=== PATIENT | male | born 1960 | race Caucasian/White ===

== ENCOUNTER → 2016-04-29 | Outpatient (CLI) | payer OTHER ==
[2016-04-29 13:16] LABS: Basophils # (A) 0.1 k/uL (0-0.2); Basophils % (A) 1 %; CH 29.2; CHCM 33.5; Eosinophils # (A) 0.4 k/uL (0-0.7); Eosinophils % (A) 4 %; HCT 47.3 % (39.0-53.0); HDW 2.48; Luc # (Auto) 0.29; Luc % (Auto) 3; Lymphocytes # (A) 2.3 k/uL (1.0-4.8); Lymphocytes % (A) 25 %; MCH 29.5 pg (25.0-35.0); MCHC 33.8 g/dL (31.0-37.0); MCV 87.2 fL (80.0-100.0); Mean Platelet Volume 6.4; Monocytes # (A) 0.7 k/uL (0-1.0); Monocytes % (A) 8 %; Neutrophils # (A) 5.6 k/uL (1.3-7.7); Neutrophils % (A) 60 %; RBC 5.42 m/uL (4.30-5.90); RDW 12.6 % (11.5-15.5); WBC 9.4 k/uL (3.8-10.6); WBC (Perox) 9.86
[2016-04-29 13:29] LABS: Anion Gap 14 mmol/L; Blood Urea Nitrogen 16 mg/dL (9-20); Calcium 9.5 mg/dL (8.4-10.2); Carbon Dioxide 26 mmol/L (22-30); Chloride 103 mmol/L (98-107); Glucose 131 mg/dL (74-99); Non-African American GFR(MDRD) >60 (>60 ml/min/1.73 sqM); Potassium 4.9 mmol/L (3.5-5.1); Sodium 143 mmol/L (137-145)
== END | disposition home or self-care (01) ==
LOC: LABPAT 12:45
PROVIDERS: ATTEND Urology
DX: Z01.810 Encounter for preprocedural cardiovascular examination (principal); I10 Essential (primary) hypertension; N20.1 Calculus of ureter; E78.5 Hyperlipidemia, unspecified
CPT/HCPCS: 80048; 85025

== ENCOUNTER 2016-05-01 09:24 | Day surgery (SDC) | payer OTHER ==
[2016-04-29 12:01] VITALS: BMI 30.1
--- NOTE | 2016-05-01 09:16 | XR ---
EXAMINATION TYPE: XR KUB DATE OF EXAM: 05/01/2016 9:10 AM HISTORY: Pain Comparison: 03/19/2016 Single KUB is submitted for interpretation. Findings: Right renal calculi: None Visualized. Right ureteral calculi: Multiple pelvic phleboliths. Difficult to exclude distal ureteral calculus. Left renal calculi: None Visualized. Left ureteral calculi: Multiple pelvic phleboliths. Difficult to exclude distal ureteral calculus. Pelvic calcifications: Multiple pelvic phleboliths. Difficult to exclude distal ureteral calculus. Bowel gas pattern is unremarkable. No free air. No mass effects. IMPRESSION: 1. Multiple pelvic phleboliths. Difficult to exclude distal ureteral calculus.
[~2016-05-01 09:24] MED LIST: ceFAZolin 2 GM in SODIUM CHLORIDE 0.9% 100 ML IVPB ONE
[2016-05-01] MEDS: LACTATED RINGERS 1,000 ML IV ONE ×2 (10:10→10:23)
[2016-05-01] MEDS ORDERED: LIDOCAINE 1% 20 ML VIAL (10MG/ML) FOR IV START SQ ONE (10:11)
[2016-05-01] MEDS ORDERED: ONDANSETRON 4 MG/2 ML VIAL IM STA (10:17)
[2016-05-01] MEDS ORDERED: DEXAMETHASONE SOD PHOSPHATE 4 MG/ML 1 ML VIAL IV STA (10:17)
[2016-05-01] MEDS ORDERED: DEXAMETHASONE SOD PHOSPHATE 10 MG/ML 1 ML VIAL IV STA (10:19)
[2016-05-01] MEDS ORDERED: IOHEXOL 350 MG/ML 50ML BOTTLE MISCELLANE ONE ×2 (10:26)
[2016-05-01] MEDS ORDERED: IOHEXOL 350 MG/ML 50ML BOTTLE ONE (10:26)
[2016-05-01] MEDS ORDERED: MIDAZOLAM 2 MG/2 ML VIAL ONE (10:30)
[2016-05-01] MEDS ORDERED: LIDOCAINE 1% INJ 10MG/ML (20 ML MDV) ONE (10:30)
[2016-05-01] MEDS ORDERED: METOPROLOL TARTRATE 5 MG/5 ML VIAL IVP ONE (10:30)
[2016-05-01] MEDS ORDERED: SODIUM CHLORIDE 0.9% 100 ML BAG ONE (10:30)
[2016-05-01] MEDS ORDERED: PROPOFOL 10 MG/ML 20 ML VIAL IV ONE (10:30)
[2016-05-01] MEDS ORDERED: fentaNYL (PF) 50 MCG/ML 2 ML AMP ONE (10:30)
[2016-05-01] MEDS ORDERED: SUCCINYLCHOLINE CHLORIDE 100 MG/5 ML SYR IV ONE (10:30)
[2016-05-01] MEDS ORDERED: LACTATED RINGERS 1,000 ML BAG IV ONE (10:30)
[2016-05-01] MEDS ORDERED: ceFAZolin 1,000 MG VIAL ONE (10:30)
[2016-05-01] MEDS ORDERED: PHENYLEPHRINE-0.9% NACL SYG 1 MG/10 ML SYRINGE ONE (10:30)
[2016-05-01] MEDS ORDERED: LACTATED RINGERS 1,000 ML IV ONE (11:31)
--- NOTE | 2016-05-01 11:42 | P.OP ---
Date of Procedure: 05/01/16 Preoperative Diagnosis: Right Ureteral Calculus Postoperative Diagnosis: Same Procedure(s) Performed: Cystoscopy, right retrograde pyelogram, right ureteroscopy with Holmium laser lithotripsy and stone basketing, right ureteral stent insertion Anesthesia: JOSÉ LUIS Surgeon: Karson Kaufman Estimated Blood Loss (ml): 5 IV fluids (ml): 950 Pathology: other (Calculus fragments, sent for chemical analysis) Condition: stable Disposition: PACU Indications for Procedure: He is a 55-year-old male with no prior history of urolithiasis. He now presents with right renal colic due to a 4 mm right proximal ureteral calculus. He has not had any episodes of severe pain since his initial episode of renal colic on February 14, but he reports intermittent gross hematuria and RLQ discomfort. The calculus is not seen on a KUB x-ray. He has taken tamsulosin and strained his urine, with the calculus has failed to pass. In view of this, he will undergo ureteroscopic removal of the calculus. He did sustain a recent TIA, but it is felt that the surgery can be safely performed and that the benefits of surgery outweigh the risks. Operative Findings: Right distal ureteral calculus. Description of Procedure: The patient was taken to the operating room and placed in the dorsolithotomy position, with legs supported in Stan stirrups. The external genitalia was prepped and draped sterilely. The 30 lens was used to introduce the 19-Colombian Stortz cystoscopic sheath through the urethra and into the bladder under direct vision. The prostatic urethra showed evidence of moderate trilobar enlargement. The bladder was examined in its entirety. The right ureteral orifice was of normal anatomic location and configuration, and clear urine effluxed from it. The left ureteral orifice was obscured by the median lobe. No tumors or foreign bodies were seen. Using an 8-Colombian cone-tipped catheter, a right retrograde pyelogram was performed in the standard fashion. The distal ureter appeared to be normal in caliber, but there was a transition point proximal to which the ureter appeared to be dilated. This was suggestive of the presence of the calculus. A 0.038 inch Glidewire was passed through the cystoscope. The right ureteral orifice was cannulated, and the Glidewire was advanced. The Glidewire met resistance, indicative of an obstructing stone in the area where the retrograde pyelogram had been abnormal. This was located within the distal ureter. The Glidewire passed beyond this point and up to the right renal pelvis. A 15-Colombian balloon dilating catheter was then passed over the wire, and this was used to dilate the intramural portion of the ureter, as the ureteral orifice was small in caliber. After dilating the ureteral orifice, the cystoscope was removed along with the balloon dilating catheter. The ACMI semirigid ureteroscope was advanced into the bladder, and the right ureteral orifice was cannulated. The ureteroscope was advanced up to the level of the calculus, which measured approximately 4 mm in size. The 365 micron Holmium laser probe was passed through the ureteroscope, and lithotripsy was performed. Care was taken to avoid any injury to the ureteral wall. Once the calculus was adequately fragmented, a 1.9-Colombian nitinol basket was used to remove several of the larger fragments. These fragments measured only 1-2 mm in size, and the remaining fragments were too small to basket. The Glidewire was advanced up to the right renal pelvis, and the ureteroscope was removed. The Glidewire was backloaded into the cystoscope, which was passed into the bladder. A 26 cm, 4.8 -Colombian double-J ureteral stent was placed over the wire. Proper stent positioning was verified fluoroscopically and endoscopically. The bladder was emptied and the cystoscope removed. Several calculus fragments which were removed were sent for chemical analysis. The patient tolerated the procedure well and was taken to the recovery room in stable condition.
[2016-05-01 11:51] VITALS: TEMP 98.4
[2016-05-01 11:54] VITALS: RESP 18
--- NOTE | 2016-05-01 12:23 | FL ---
EXAMINATION TYPE: FL urography retrograde DATE OF EXAM: 05/01/2016 11:33 AM COMPARISON: NONE HISTORY: RT URETERAL CALCULUS, STENT PLACED TECHNIQUE: Fluoroscopy. FINDINGS: 90 SEC FL, 1 FILM SCANNED IMPRESSION: As Above.
[2016-05-01 13:04] VITALS: BP 130/80; PULSE 81
[2016-05-01] MEDS ORDERED: HYDROcodone/APAP 5-325MG 1 EACH TAB PO ONE (13:05)
== END 2016-05-01 13:42 | disposition home or self-care (01) ==
LOC: OR 09:24
PROVIDERS: ATTEND Urology
DX: N20.1 Calculus of ureter (principal); I25.10 Atherosclerotic heart disease of native coronary artery without angina pectoris; I10 Essential (primary) hypertension; F17.200 Nicotine dependence, unspecified, uncomplicated; E78.5 Hyperlipidemia, unspecified; I48.91 Unspecified atrial fibrillation; Z79.01 Long term (current) use of anticoagulants; Z95.5 Presence of coronary angioplasty implant and graft; N40.0 Benign prostatic hyperplasia without lower urinary tract symptoms; E66.9 Obesity, unspecified; Z68.30 Body mass index [BMI] 30.0-30.9, adult; J44.9 Chronic obstructive pulmonary disease, unspecified; G47.30 Sleep apnea, unspecified; Z79.82 Long term (current) use of aspirin; Z79.899 Other long term (current) drug therapy
CPT/HCPCS: 52356; 52352; 82365; 74000; 74420; C2625; C1758; C1769 ×2; J2250; J1100; J2405; J0690; J2001; J3010; J2370; J0330; J2704; Q9967

== ENCOUNTER → 2016-06-03 | Outpatient (CLI) | payer OTHER ==
--- NOTE | 2016-06-03 14:00 | US ---
EXAMINATION TYPE: US kidneys/renal and bladder DATE OF EXAM: 06/03/2016 10:52 AM COMPARISON: See PACS CLINICAL HISTORY: N13.30 Hydronephrosis. EXAM MEASUREMENTS: Right Kidney: 12.1 x 4.8 x 4.8 cm Left Kidney: 12.6 x 5.6 x 4.8 cm TECHNOLOGIST IMPRESSION: Right Kidney: No hydronephrosis or masses seen Left Kidney: No hydronephrosis or masses seen Bladder: wnl There is no evidence for hydronephrosis at this point in time. No masses are identified. The urin corrie bladder is anechoic. Bilateral ureteral jets are not clearly identified. IMPRESSION: No hydronephrosis is present bilaterally.
== END | disposition home or self-care (01) ==
LOC: RADUSWWP 10:30
PROVIDERS: ATTEND Urology
DX: N13.30 Unspecified hydronephrosis (principal)
CPT/HCPCS: 76770

== ENCOUNTER → 2016-09-09 | Outpatient (CLI) | payer OTHER ==
--- NOTE | 2016-09-09 23:12 | PN ---
This 55-year-old male patient diagnosed with an established diagnosis of obstructive sleep apnea. The patient was found to have severe RAJESH based on a home sleep study that showed severe RAJESH with an AHI of 74, 46 and 66 respectively. Based on that, the patient was given an auto CPAP unit and he has been using it for quite some time. He came to my office for a follow-up and he was having difficulty in wearing the CPAP machine. Initially was compliant. However, with time he felt that the mask itself was becoming uncomfortable and the patient was having excessive amount of leaks around his nasal bridge. He was waking up non-refreshed and he ended up quitting the treatment. For that reason he came in for further advice. I asked the patient is coming to the sleep center for mask fit so he will have a few alternative masks on his fullface mask. He is currently using an AirFit P10 fullface mask. Note that the patient also has history of atrial fibrillation. He has COPD, coronary artery disease, hypertension, hyperlipidemia, anxiety disorder and a left lower lobe pulmonary nodule that was noted, and being followed up by his primary care physician. Drug allergies are not known. SOCIAL HISTORY: The patient is a former smoker. No history of alcohol. No history of IV drugs. Outpatient medication list includes: 1. Xanax 0.25 mg on a p.r.n. basis. 2. Norvasc 10 mg p.o. daily. 3. Plavix 75 mg p.o. daily. 4. Ventolin HFA on a p.r.n. basis. 5. Imdur 60 daily. 6. Eliquis 5 mg p.o. daily. 7. Lipitor 20 mg p.o. daily. 8. Aspirin 81 mg p.o. daily. 9. ( ) on an as needed basis. REVIEW OF SYSTEMS: Twelve-point review of systems was done. Positive findings were all mentioned above in present illness. His current vital signs: BP is 109/67, pulse 64, respirations 14, temperature 97.3. Weight is 215, and height is 69 inches. An [place] score is 12. Neck size is 17-1/2 inches. GENERAL APPEARANCE: Calm and comfortable. HEENT: Short neck. Crowding of posterior pharynx. There is no goiter, neck masses. LUNGS: Diminished breath sounds bilaterally; otherwise clear. HEART: Sounds are regular rate and rhythm. Normal S1, S2. No S3, no S4. No murmurs. ABDOMEN: Soft, nontender. No organomegaly. EXTREMITIES: No cyanosis, or clubbing. IMPRESSION: Symptomatic obstructive sleep apnea. The patient had severe disease with previous home sleep study showed an hypopnea index of at least 45 and highest 74. The patient was given an auto CPAP unit is having difficulties utilizing the CPAP machine. PLAN: I reviewed the patient's compliancy data. The patient needs to have a different mask interface to improve his compliancy in general. The main issue remains leak around his nasal ( ). Based on that, I suggested updating this patient's mask interface to Simplus fullface mask. We will also try different mask interfaces until treatment becomes more successful. Simplus mask was fitted today and I think this should be successful. The patient will see me back in follow-up for a compliancy check in 3 to 6 months' time.
== END | disposition home or self-care (01) ==
LOC: SLEEP 15:06
PROVIDERS: ATTEND Internal Medicine Critical Care Medicine
DX: G47.33 Obstructive sleep apnea (adult) (pediatric) (principal); J44.9 Chronic obstructive pulmonary disease, unspecified; I25.10 Atherosclerotic heart disease of native coronary artery without angina pectoris; I10 Essential (primary) hypertension; E78.5 Hyperlipidemia, unspecified; F41.9 Anxiety disorder, unspecified; Z86.79 Personal history of other diseases of the circulatory system; Z87.891 Personal history of nicotine dependence; Z79.899 Other long term (current) drug therapy; Z79.01 Long term (current) use of anticoagulants; Z79.02 Long term (current) use of antithrombotics/antiplatelets
CPT/HCPCS: 99211

== ENCOUNTER 2017-07-30 15:04 | Inpatient (IN) | payer BC, OTHER ==
[2017-07-30] MEDS ORDERED: ALBUTEROL NEBULIZED 2.5 MG/3 ML INHALATION PRN (18:54)
[2017-07-30] MEDS ORDERED: ALPRAZolam 0.25 MG TAB PO PRN (18:54)
[2017-07-30] MEDS ORDERED: NITROGLYCERIN SL TABS 0.4 MG TAB SUBLINGUAL PRN (18:54)
[2017-07-30] MEDS: DILTIAZEM 50 MG in SODIUM CHLORIDE 0.9% 40 ML IV SCH (19:30)
[2017-07-30] MEDS: ALBUTEROL NEBULIZED 2.5 MG/3 ML INHALATION SCH (20:04)
[2017-07-30 20:27] LABS: Glucose,Whole Blood 335 mg/dL (75-99)
[2017-07-30] MEDS: METOPROLOL TARTRATE 50 MG TAB PO SCH (21:06)
[2017-07-30] MEDS: INSULIN ASPART 100 UNIT/ML 1 ML 10 ML VIAL SQ SCH (22:10)
[2017-07-30] MEDS: INSULIN DETEMIR 100 UNIT/ML 10 ML VIAL SQ SCH (22:10)
[2017-07-31 00:32] LABS: Calcium 10.2 mg/dL (8.4-10.2); Magnesium 2.1 mg/dL (1.6-2.3); Potassium 4.3 mmol/L (3.5-5.1)
[2017-07-31 00:42] LABS: Glucose,Whole Blood 243 mg/dL (75-99)
[2017-07-31 06:19] LABS: Glucose,Whole Blood 127 mg/dL (75-99)
[2017-07-31] MEDS: INSULIN ASPART 100 UNIT/ML 1 ML 10 ML VIAL SQ SCH ×4 (06:20→21:12)
[2017-07-31] MEDS ORDERED: metFORMIN 500 MG TAB PO SCH (07:30)
[2017-07-31] MEDS: ALBUTEROL NEBULIZED 2.5 MG/3 ML INHALATION SCH ×5 (07:43→20:19)
[2017-07-31] MEDS: ASPIRIN 81 MG PO SCH (08:32)
[2017-07-31] MEDS: amLODIPine 10 MG TAB PO SCH (08:32)
[2017-07-31] MEDS: METOPROLOL TARTRATE 50 MG TAB PO SCH ×2 (08:32→21:12)
[2017-07-31] MEDS: ATORVASTATIN 40 MG TAB PO SCH (08:32)
[2017-07-31] MEDS: ISOSORBIDE MONONITRATE ER 30 MG TAB.ER.24H PO SCH (08:32)
[2017-07-31] MEDS: MONTELUKAST 10 MG TAB PO SCH (08:33)
[2017-07-31] MEDS: TAMSULOSIN 0.4 MG CAP.ER.24H PO SCH (08:33)
[2017-07-31] MEDS ORDERED: ATORVASTATIN 40 MG TAB PO STA (09:27)
[2017-07-31] MEDS ORDERED: NITROGLYCERIN SL TABS 0.4 MG TAB SUBLINGUAL PRN (09:27)
[2017-07-31] MEDS ORDERED: ALPRAZolam 0.5 MG TAB PO PRN (09:27)
[2017-07-31] MEDS ORDERED: SODIUM CHLORIDE 0.9% 1,000 ML in EMPTY BAG 1 BAG IV ONE (09:27)
[2017-07-31] MEDS ORDERED: ALPRAZolam 0.25 MG TAB PO PRN (09:27)
[2017-07-31] MEDS ORDERED: ASPIRIN 81 MG PO STA (09:37)
[2017-07-31] MEDS ORDERED: IV FLUID CONTINUATION 1,000 ML IV ONE (10:15)
[2017-07-31] MEDS ORDERED: VERAPAMIL 2.5 MG/ML 2 ML AMP ONE (10:33)
[2017-07-31] MEDS ORDERED: MIDAZOLAM 2 MG/2 ML VIAL ONE (10:39)
[2017-07-31] MEDS ORDERED: fentaNYL (PF) 50 MCG/ML 2 ML AMP ONE (10:39)
[2017-07-31] MEDS ORDERED: fentaNYL (PF) 50 MCG/ML 2 ML AMP IV ONE (10:41)
[2017-07-31] MEDS ORDERED: MIDAZOLAM 2 MG/2 ML VIAL IV ONE (10:43)
[2017-07-31] MEDS ORDERED: LIDOCAINE 2% INJ 20 MG/ML SQ ONE (10:44)
[2017-07-31] MEDS ORDERED: VERAPAMIL SYRINGE (5 MG/10 ML) INTRAARTER ONE (10:47)
[2017-07-31] MEDS ORDERED: IODIXANOL 320 MG/ML 100 ML IV ONE (11:09)
[2017-07-31] MEDS ORDERED: IOPAMIDOL-370 125ML BTL INJ ONE (11:10)
--- NOTE | 2017-07-31 11:13 | P.PCN ---
Date of Procedure: 07/31/17 Preoperative Diagnosis: Ischemic heart disease, recurrent chest pains suggestive of unstable angina and also sick sinus syndrome Postoperative Diagnosis: Patent stents both the LAD and circumflex Implants: Left heart catheterization without left ventriculography Description of Procedure: HISTORY: This is a 56-year-old gentleman with history of ischemic or disease with previous stent placement of the left anterior descending and also circumflex coronary artery. Patient also has a history of paroxysmal/ persistent atrial fibrillation. He was admitted to [facility] with prolonged chest pain but with negative enzymes. Patient had syncopal episode while in the emergency room with a long pauses of more than 5 seconds. Patient was in atrial fibrillation at the time. Patient also gives history that he had similar episode a few months ago while he was in the garage but did not seek any medical advice. Patient is advised to have a cardiac catheterization to rule out any progression of ischemic heart disease and assess the patency of the stents. If coronary artery disease is stable, patient will have permanent pacemaker implantation CONSENT:I have discussed the risks, benefits and alternative therapies for the above-mentioned procedure and for both sedation/analgesia as well as necessary blood product administration, if indicated, as they pertain to this patient. The patient has indicated understanding and acceptance of the risks and procedures discussed. PROCEDURE: Patient was brought to the lab in a fasting state. Patient was given some IV sedation. The right wrist is infiltrated with lidocaine and right radial artery was entered using Seldinger technique. A 6-Mauritanian catheter was left in place and selective coronary arteriography was performed. Attempts were made to enter the left ventricle with pigtail catheter but was unsuccessful. Patient tolerated the procedure well. TR band was applied for hemostasis No immediate complications were noted and patient is being prepped for permanent pacemaker implantation Conscious Sedation: Versed 1mg Fentanyl 50 g Duration 22 minutes HEMODYNAMICS:. The aortic pressure is about 100/70. Left ankle end-diastolic pressure was not measured SELECTIVE CORONARY ARTERIOGRAPHY: LEFT MAIN: Normal length and free of any occlusive disease THE LEFT ANTERIOR DESCENDING CORONARY ARTERY:. This is a huge caliber vessel with patent stent in the proximal portion. It gives rise to 2 diagonal and septal branches. Mild disease noted in the distal LAD and also ostium of the second diagonal. THE LEFT CIRCUMFLEX AND IS CORONARY ARTERY: This is a moderate caliber vessel with a patent stent in the proximal portion. Mild plaque noted in the distal portion THE RIGHT CORONARY ARTERY:. This is a dominant vessel giving rise to good-sized PDA and PLV. Free of any significant occlusive disease LEFT VENTRICULOGRAPHY:. Not performed FINAL IMPRESSION:. Stable coronary artery disease with patent stents in the LAD and the circumflex and is coronary artery PLAN: Continuation maximum medical therapy. We'll proceed with permanent pacemaker implantation for sick sinus syndrome PROGNOSIS: Fair
[2017-07-31] MEDS ORDERED: ceFAZolin 1,000 MG in SODIUM CHLORIDE 0.9% IRRIGATIO 250 ML IRRIGATION ONE (11:15)
[2017-07-31] MEDS ORDERED: ceFAZolin IN SWFI 2 GM/20 ML SYRINGE IVP STA (11:15)
[2017-07-31] MEDS: LIDOCAINE 1% INJ 10MG/ML (10 ML MDV) SQ ONE ×2 (11:40→11:53)
[2017-07-31] MEDS ORDERED: LIDOCAINE 1% INJ 10MG/ML (20 ML MDV) SQ ONE ×3 (11:40→12:02)
[2017-07-31] MEDS ORDERED: ACETAMINOPHEN TAB 325 MG TAB PO PRN (12:35)
[2017-07-31] MEDS ORDERED: SODIUM CHLORIDE 0.9% 1,000 ML IV ONE (12:40)
--- NOTE | 2017-07-31 14:01 | P.HPIM ---
History of Present Illness H&P Date: 07/31/17 Chief Complaint: tachybrady syndrome. This is a 56-year-old male one of Dr. Bushra quinteros with a previous medical history significant for CAD post-PCI of the LAD back in 12/27/2015 followed by PCI of the left circumflex in January [address] 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, history of obesity with obstructive sleep apnea on CPAP, chronic tobacco use and dependence with COPD, diabetes mellitus type 2, patient was at [place] the day before yesterday when he felt that his heart is being erratic he ended up going to atrial fibrillation with possible RVR that time patient felt quite dizzy that time diaphoretic he ended up the coming to the ER at [facility] where he was found to have a positive disease in the ER at about 6 seconds and the patient passed out completely and the patient was admitted to the hospital he was seen in consultation by cardiology and the patient was given a decision to go for left heart catheterization at [facility] and apparent pacemaker placement due to the tachybradycardia syndrome and the patient was transferred from [facility] into [facility] where he was seen in consultation by cardiology ended up going for a permanent pacemaker placement after heart catheterization that failed to show any obstructive heart disease. Review of Systems Constitutional: Reports weight gain, Denies anorexia, Denies chronic headaches, Denies lethargy, Denies weakness Eyes: denies blurred vision, denies bulging eye, denies decreased vision Ears, nose, mouth and throat: Denies dysphagia, Denies neck lump, Denies swelling in throat, Denies sore throat Cardiovascular: Reports decreased exercise tolerance, Reports dyspnea on exertion, Reports high blood pressure, Reports irregular heart beat, Reports palpitations, Reports rapid heart beat, Reports shortness of breath, Denies chest pain, Denies syncope Respiratory: Reports congestion, Reports cough with sputum, Reports dyspnea, Reports sleep apnea, Reports snoring, Denies cough, Denies home oxygen, Denies wheezing Gastrointestinal: Denies abdominal pain, Denies belching, Denies bloating, Denies heartburn, Denies melena, Denies nausea, Denies vomiting Genitourinary: Denies dysuria, Denies nocturia, Denies polyuria Musculoskeletal: Denies myalgias Musculoskeletal: absent: ankle pain, ankle stiffness, ankle swelling, elbow pain , elbow stiffness, elbow swelling, foot pain, foot stiffness, foot swelling, hand pain, hand stiffness, hand swelling, hip pain, hip stiffness, hip swelling , knee pain, knee stiffness, knee swelling, shoulder pain, shoulder stiffness, shoulder swelling, wrist pain, wrist stiffness, wrist swelling Integumentary: Denies pruritus, Denies rash Neurological: Reports weakness (mild left-sided weakness.), Denies numbness Psychiatric: Denies anxiety, Denies depression Endocrine: Reports high blood sugars Past Medical History Past Medical History: Atrial Fibrillation, Coronary Artery Disease (CAD), Chest Pain / Angina, COPD, CVA/TIA, Diabetes Mellitus, Hyperlipidemia, Hypertension, Liver Disease, Myocardial Infarction (CO), Osteoarthritis (OA), Pneumonia, Prostate Disorder, Sleep Apnea/CPAP/BIPAP, Syncope Additional Past Medical History / Comment(s): MILD CVA 03/27/16, WEAKNESS LT LEG AND ARM and when tired lt foot drag at times. "SPOT ON LIVER, BEING WATCHED." CALCULUS OF RT URETER (lithotripsy and stenting). USES CPAP. History of Any Multi-Drug Resistant Organisms: None Reported Past Surgical History: Heart Catheterization, Heart Catheterization With Stent, Orthopedic Surgery Additional Past Surgical History / Comment(s): 08/29/13 Cath with 50-60% stenosis L cx treated medically, possible PTCA about 10 yrs ago per pt old medical records. EXC Bilateral Feet BUNIONS. ORIF Right Wrist Surgery - TOOK BONE FROM RT HIP. Colonoscopy-normal. PTCA W/ 1 STENT X2 IN 12/2015. Past Anesthesia/Blood Transfusion Reactions: No Reported Reaction Date of Last Stent Placement:: 01/03/16 Smoking Status: Current every day smoker (patient smokes pack every day since was 20-year-old and is currently smokes about 4 cigarettes a daily basis, he denies any alcohol ingestion or drug abuse.) Past Alcohol Use History: None Reported Past Drug Use History: None Reported - Past Family History Mother Family Medical History: Cancer, Diabetes Mellitus Additional Family Medical History / Comment(s): Mother is alive and 78 yrs old. She has NIDDM and had breast cancer. Father Brother(s) Family Medical History: COPD, Coronary Artery Disease (CAD), CVA/TIA Additional Family Medical History / Comment(s): Father at 69yrs old of copd. Brother(s) Family Medical History: Renal Disease (patient has 3 brothers one of his brother was diagnosed with kidney disease and the other one with CAD and the third one with COPD) Sister(s) Family Medical History: AFIB (patient has 4 sisters one of them with atrial flutter ablation.) Daughter(s) Family Medical History: No Reported History (patient has 2 daughters no major medical problems) Son(s) Family Medical History: No Reported History (patient has one son no major medical problems.) Medications and Allergies Home Medications Medication Instructions Recorded Confirmed Type Nitroglycerin Sl Tabs [Nitrostat] 0.4 mg SUBLINGUAL Q5M PRN 08/28/13 07/30/17 History Aspirin 81 mg PO DAILY 05/16/15 07/30/17 History Montelukast [Singulair] 10 mg PO DAILY 05/16/15 07/30/17 History amLODIPine [Norvasc] 10 mg PO DAILY 05/16/15 07/30/17 History ALPRAZolam [Xanax] 0.25 mg PO DAILY PRN 04/29/16 07/30/17 History Albuterol Inhaler [Ventolin Hfa 1 - 2 puff INHALATION RT-QID PRN 04/29/16 History Inhaler] Albuterol Nebulized [Ventolin 2.5 mg INHALATION RT-QID 04/29/16 07/30/17 History Nebulized] Tamsulosin [Flomax] 0.4 mg PO DAILY 04/29/16 07/30/17 History Atorvastatin [Lipitor] 40 mg PO DAILY 07/30/17 07/30/17 History Clopidogrel [Plavix] 75 mg PO DAILY 07/30/17 07/30/17 History Diltiazem Oral [Cardizem Oral] 30 mg PO TID 07/30/17 07/30/17 History Isosorbide Mononitrate ER [Imdur] 30 mg PO DAILY 07/30/17 07/30/17 History Metoprolol Tartrate [Lopressor] 100 mg PO DAILY 07/30/17 07/30/17 History Rivaroxaban [Xarelto] 20 mg PO DAILY 07/30/17 07/30/17 History Allergies Allergy/AdvReac Type Severity Reaction Status Date / Time No Known Allergies Allergy Verified 07/30/17 19:07 Physical Exam Vitals: Vital Signs Temp Pulse Pulse Pulse Resp BP Pulse Ox 07/31/17 09:29 97.0 F L 62 16 111/66 93 L 07/31/17 08:25 97.0 F L 62 18 111/66 93 L 07/31/17 07:54 72 07/31/17 07:43 72 07/31/17 03:29 70 18 07/31/17 03:28 97.0 F L 70 18 107/69 95 07/31/17 00:00 96.8 F L 70 18 94/50 93 L 07/30/17 20:16 92 07/30/17 20:06 94 95 07/30/17 20:00 96.4 F L 91 18 108/57 93 L 07/30/17 18:10 96.9 F L 104 H 16 99/55 Intake and Output 07/30/17 07/31/17 07/31/17 22:59 06:59 14:59 Intake Total 40 275 Output Total 275 500 Balance -235 -225 Intake: IV 40 275 Diltiazem 50 mg In Sodium 40 Chloride 0.9% 40 ml @ 5 MG/HR 5 mls/hr IV .Q10H [facility] Rx#:[id number] Output: Urine 275 500 Other: Voiding Method Urinal Urinal Weight 101 kg 100.5 kg - Constitutional General appearance: average body habitus, no acute distress - EENT Eyes: anicteric sclerae, EOMI, PERRLA, no ptosis, no scleral icterus, normal appearance ENT: hearing grossly normal, NA/AT, normal oropharynx, no thrush Ears: bilateral: normal - Neck Neck: no lymphadenopathy, normal ROM, no rigidity, no stridor, no thyromegaly Carotids: bilateral: upstroke normal Thyroid: bilateral: normal size - Respiratory Respiratory: bilateral: diminished, prolonged expiration, negative: dullness, rales, rhonchi, wheezing - Cardiovascular Rhythm: irregularly irregular Heart sounds: normal: S1, S2 Abnormal Heart Sounds: systolic murmur - Gastrointestinal General gastrointestinal: normal bowel sounds, soft, no splenomegaly, no tenderness, no umbilical hernia, no ventral hernia - Integumentary Integumentary: normal, normal turgor - Neurologic Neurologic: CNII-XII intact - Musculoskeletal Musculoskeletal: strength equal bilaterally - Psychiatric Psychiatric: A&O x's 3, appropriate affect, intact judgment & insight Results CBC & Chem 7: 07/31/17 00:02 Labs: Abnormal Lab Results - Last 24 Hours (Table) 07/30/17 07/31/17 07/31/17 Range/Units 20:25 00:02 00:41 Chloride 108 H (98-107) mmol/L Carbon Dioxide 21 L (22-30) mmol/L BUN 30 H (9-20) mg/dL Glucose 264 H (74-99) mg/dL POC Glucose (mg/dL) 335 H 243 H (75-99) mg/dL 07/31/17 Range/Units 06:17 Chloride (98-107) mmol/L Carbon Dioxide (22-30) mmol/L BUN (9-20) mg/dL Glucose (74-99) mg/dL POC Glucose (mg/dL) 127 H (75-99) mg/dL Thrombosis Risk Factor Assmnt - DVT/VTE Prophylaxis DVT/VTE Prophylaxis: Pharmacologic Prophylaxis ordered, Mechanical Prophylaxis ordered - Choose All That Apply Any of the Below Risk Factors Present?: Yes Each Factor Represents 1 point: Abnormal pulmonary function (COPD), Age 41-60 years, Obesity (BMI >25) Other Risk Factors: No Other congenital or acquired thrombophilia - If yes, enter type in comment: No Thrombosis Risk Factor Assessment Total Risk Factor Score: 3 Thrombosis Risk Factor Assessment Level: Moderate Risk Assessment and Plan Assessment: Assessment and plan: 1. Sick sinus syndrome or tachybradycardia syndrome. Patient was admitted to the hospital, left heart cath physician was done did not show any evidence of acute abnormalities, he continues to have patent stent in the LCx and LAD, he underwent permanent pacer placement that was done successfully, he would be kept in the hospital for another 24 hours, he'll be discharged home tomorrow morning. 2. Hypertension and hypertensive cardiovascular disease. Continue metoprolol 100 mg orally twice every day, continue lisinopril , amlodipine 10 mg orally once every day. 3. Hyperlipidemia. Continue patient on Lipitor 40 mg orally once every day. 4. Enlarged prostate. Continue Flomax 0.4 mg orally once every day. 5. A. fib status post permanent pacemaker placement. Continue Cardizem drip for now, continue metoprolol 100 mg orally twice every day, restart the patient back on Xarelto at 20 mg orally once every day. 6. History of kidney stones. Stable at this time. 7. Obstructive sleep apnea. Continue CPAP. 8. Recurrent TIA/CVA. Resume Xarelto 20 mg orally once every day, and aspirin 81 mg orally once every day. 9. CAD post-PCI of the LCx and LAD. Status post left heart catheterization that did not show any evidence of acute abnormalities. Continue patient on Imdur 30 mg orally once every day, metoprolol 100 mg orally twice every day, Lipitor 40 mg orally once every day, and aspirin 81 mg once every day. 10. Chronic tobacco use and dependence with COPD. Continue DuoNeb as needed. Smoking cessation and counseling. 11. Diabetes mellitus type 2. Start the patient on Levemir 22 units of bedtime along with a sliding scale insulin. Hold off metformin for now. 12. Admitted to inpatient. Estimate a length of stay 2 midnights. 13. Patient is full code.
[2017-07-31] MEDS: DILTIAZEM 50 MG in SODIUM CHLORIDE 0.9% 40 ML IV SCH ×3 (15:20→23:23)
[2017-07-31] MEDS: HYDROcodone/APAP 5-325MG 1 EACH TAB PO PRN ×2 (16:46→21:13)
[2017-07-31 17:17] LABS: Glucose,Whole Blood 154 mg/dL (75-99)
[2017-07-31] MEDS: ceFAZolin IN SWFI 2 GM/20 ML SYRINGE IVP SCH ×2 (17:49→23:23)
[2017-07-31] MEDS: NICOTINE 21MG/24HR PATCH TRANSDERM SCH (17:49)
[2017-07-31 20:38] LABS: Glucose,Whole Blood 230 mg/dL (75-99)
[2017-07-31] MEDS: INSULIN DETEMIR 100 UNIT/ML 10 ML VIAL SQ SCH (21:11)
[2017-07-31] MEDS ORDERED: INSULIN ASPART 100 UNIT/ML 1 ML 10 ML VIAL SQ SCH (21:16)
[2017-08-01] LABS: Glucose,Whole Blood 245 mg/dL (75-99)
[2017-08-01] MEDS: HYDROcodone/APAP 5-325MG 1 EACH TAB PO PRN ×5 (00:56→23:07)
[2017-08-01] MEDS: ceFAZolin IN SWFI 2 GM/20 ML SYRINGE IVP SCH ×2 (05:26→12:25)
[2017-08-01 06:07] LABS: Glucose,Whole Blood 153 mg/dL (75-99)
--- NOTE | 2017-08-01 06:23 | XR ---
EXAMINATION TYPE: XR chest 2V DATE OF EXAM: 08/01/2017 HISTORY: Lead placement check. REFERENCE: Previous study dated 08/28/2013. FINDINGS: There is a bipolar pacemaker place on the left via a left subclavian approach. Approximatel y overlies the right atrium and the distal lead overlies the right ventricle. There is no evidence of pneumothorax. The lungs are overinflated but clear. Pleural space are clear. The heart is not enlarged. IMPRESSION: SATISFACTORY PACEMAKER PLACEMENT.
[2017-08-01 06:39] LABS: Basophils # (A) 0.1 k/uL (0-0.2); Basophils % (A) 1 %; Eosinophils # (A) 0.1 k/uL (0-0.7); Eosinophils % (A) 1 %; HCT 43.9 % (39.0-53.0); HGB 14.5 gm/dL (13.0-17.5); Lymphocytes # (A) 2.5 k/uL (1.0-4.8); Lymphocytes % (A) 26 %; MCH 28.6 pg (25.0-35.0); MCHC 33.1 g/dL (31.0-37.0); MCV 86.5 fL (80.0-100.0); Mean Platelet Volume 6.7; Monocytes # (A) 0.8 k/uL (0-1.0); Monocytes % (A) 9 %; Neutrophils # (A) 5.8 k/uL (1.3-7.7); Neutrophils % (A) 62 %; Platelet Count 226 k/uL (150-450); RBC 5.07 m/uL (4.30-5.90); RDW 13.1 % (11.5-15.5); WBC 9.5 k/uL (3.8-10.6)
[2017-08-01] MEDS: INSULIN ASPART 100 UNIT/ML 1 ML 10 ML VIAL SQ SCH ×4 (06:41→20:49)
[2017-08-01 07:03] LABS: Anion Gap 10 mmol/L; Blood Urea Nitrogen 21 mg/dL (9-20); Calcium 8.7 mg/dL (8.4-10.2); Carbon Dioxide 25 mmol/L (22-30); Chloride 108 mmol/L (98-107); Glucose 137 mg/dL (74-99); Potassium 4.2 mmol/L (3.5-5.1); Sodium 143 mmol/L (137-145)
[2017-08-01] MEDS: ALBUTEROL NEBULIZED 2.5 MG/3 ML INHALATION SCH ×4 (08:19→19:40)
[2017-08-01] MEDS ORDERED: NON-FORMULARY DRUG (Metoprolol Tartrate [Lopressor] 100 MG) PO SCH (09:00)
[2017-08-01] MEDS ORDERED: ISOSORBIDE MONONITRATE ER 30 MG TAB.ER.24H PO SCH (09:00)
[2017-08-01] MEDS: ISOSORBIDE MONONITRATE ER 30 MG TAB.ER.24H PO SCH (09:10)
[2017-08-01] MEDS: ASPIRIN 81 MG PO SCH (09:10)
[2017-08-01] MEDS: ATORVASTATIN 40 MG TAB PO SCH (09:10)
[2017-08-01] MEDS: amLODIPine 10 MG TAB PO SCH (09:10)
[2017-08-01] MEDS: METOPROLOL TARTRATE 50 MG TAB PO SCH ×2 (09:10→20:19)
[2017-08-01] MEDS: MONTELUKAST 10 MG TAB PO SCH (09:11)
[2017-08-01] MEDS: TAMSULOSIN 0.4 MG CAP.ER.24H PO SCH (09:12)
[2017-08-01] MEDS: NICOTINE 21MG/24HR PATCH TRANSDERM SCH (09:12)
--- NOTE | 2017-08-01 11:24 | P.DS ---
Providers Date of admission: 07/30/17 17:33 Expected date of discharge: 08/02/17 Attending physician: Gloria Montesinos Consults: 07/31/17 08:07 Consult Physician Routine Consulting Provider: Margarito Escobar Consult Reason/Comments: [facility] transfer for cardiac cath Do you want consulting provider notified?: Already Contacted Primary care physician: Gloria Montesinos [facility] Course: This is a 56-year-old male one of Dr. Bushra quinteros with a previous medical history significant for CAD post-PCI of the LAD back in 12/27/2015 followed by PCI of the left circumflex in January [address] Alicea at [facility], history of atrial fibrillation, hypertension and hypertensive cardio vascular disease, recurrent TIA as well as CVA with left- sided weakness, history of obesity with obstructive sleep apnea on CPAP, chronic tobacco use and dependence with COPD, diabetes mellitus type 2, patient was at [place] the day before yesterday when he felt that his heart is being erratic he ended up going to atrial fibrillation with possible RVR that time patient felt quite dizzy that time diaphoretic he ended up the coming to the ER at [facility] where he was found to have a positive disease in the ER at about 6 seconds and the patient passed out completely and the patient was admitted to the hospital he was seen in consultation by cardiology and the patient was given a decision to go for left heart catheterization at [facility] and apparent pacemaker placement due to the tachybradycardia syndrome and the patient was transferred from [facility] into [facility] where he was seen in consultation by cardiology ended up going for a permanent pacemaker placement after heart catheterization that failed to show any obstructive heart disease. Patient was ambulated and his pulse ox dropped to 87% and then down 84%. His chest x-ray this morning showed no complications. Satisfactory pacemaker placement. Discharge held and patient will be monitored overnight. Patient states that he does have some chronic problems with shortness of breath and also has sleep apnea. Patient to maintain a pulse ox is 91% on 3 L and this will be arranged for home. Clarified home medications with Dr. Escobar and Xarelto was decreased to 15 mg, aspirin discontinued. Patient has been started on metformin as a new medication. Patient will be discharged home today in stable condition. Discharge diagnoses: 1. Sick sinus syndrome or tachybradycardia syndrome. 2. Hypertension and hypertensive cardiovascular disease. 3. Hyperlipidemia. 4. Enlarged prostate. 5. A. fib status post permanent pacemaker placement. 6. History of kidney stones. Stable at this time. 7. Obstructive sleep apnea. Continue CPAP. 8. Recurrent TIA/CVA. 9. CAD post-PCI of the LCx and LAD. Status post left heart catheterization that did not show any evidence of acute abnormalities. 10. Chronic tobacco use and dependence with COPD. 11. Diabetes mellitus type 2. 12. Chronic hypoxic respiratory failure. Patient will be started on home O2 at 3 L nasal cannula Discharge plan: Home Impression and plan of care have been directed as dictated by the signing physician. Di Francisco nurse practitioner acting as scribe for signing physician. Patient Condition at Discharge: Good Plan - Discharge Summary Discharge Rx Participant: No New Discharge Prescriptions: New Metoprolol Tartrate [Lopressor] 100 mg PO Q12HR #60 tab Nicotine 21Mg/24Hr Patch [Habitrol] 1 patch TRANSDERM DAILY #30 patch HYDROcodone/APAP 5-325MG [[place] 5-325] 1 each PO Q6HR PRN #15 tab PRN Reason: Pain metFORMIN HCL [Glucophage] 500 mg PO BID #60 tab Rivaroxaban [Xarelto] 15 mg PO DAILY #30 tab Continue Nitroglycerin Sl Tabs [Nitrostat] 0.4 mg SUBLINGUAL Q5M PRN PRN Reason: Chest Pain amLODIPine [Norvasc] 10 mg PO DAILY Montelukast [Singulair] 10 mg PO DAILY Albuterol Nebulized [Ventolin Nebulized] 2.5 mg INHALATION RT-QID ALPRAZolam [Xanax] 0.25 mg PO DAILY PRN PRN Reason: Anxiety Tamsulosin [Flomax] 0.4 mg PO DAILY Albuterol Inhaler [Ventolin Hfa Inhaler] 1 - 2 puff INHALATION RT-QID PRN PRN Reason: Shortness Of Breath Atorvastatin [Lipitor] 40 mg PO DAILY Clopidogrel [Plavix] 75 mg PO DAILY Diltiazem Oral [Cardizem*] 30 mg PO TID Isosorbide Mononitrate ER [Imdur] 30 mg PO DAILY Discontinued Aspirin 81 mg PO DAILY Rivaroxaban [Xarelto] 20 mg PO DAILY Metoprolol Tartrate [Lopressor] 100 mg PO DAILY Discharge Medication List Nitroglycerin Sl Tabs [Nitrostat] 0.4 mg SUBLINGUAL Q5M PRN 08/28/13 [History] Montelukast [Singulair] 10 mg PO DAILY 05/16/15 [History] amLODIPine [Norvasc] 10 mg PO DAILY 05/16/15 [History] ALPRAZolam [Xanax] 0.25 mg PO DAILY PRN 04/29/16 [History] Albuterol Inhaler [Ventolin Hfa Inhaler] 1 - 2 puff INHALATION RT-QID PRN [History] Albuterol Nebulized [Ventolin Nebulized] 2.5 mg INHALATION RT-QID 04/29/16 [ History] Tamsulosin [Flomax] 0.4 mg PO DAILY 04/29/16 [History] Atorvastatin [Lipitor] 40 mg PO DAILY 07/30/17 [History] Clopidogrel [Plavix] 75 mg PO DAILY 07/30/17 [History] Diltiazem Oral [Cardizem*] 30 mg PO TID 07/30/17 [History] Isosorbide Mononitrate ER [Imdur] 30 mg PO DAILY 07/30/17 [History] Metoprolol Tartrate [Lopressor] 100 mg PO Q12HR #60 tab 08/01/17 [Rx] Nicotine 21Mg/24Hr Patch [Habitrol] 1 patch TRANSDERM DAILY #30 patch 08/01/17 [ Rx] HYDROcodone/APAP 5-325MG [[place] 5-325] 1 each PO Q6HR PRN #15 tab 08/02/17 [Rx] Rivaroxaban [Xarelto] 15 mg PO DAILY #30 tab 08/02/17 [Rx] metFORMIN HCL [Glucophage] 500 mg PO BID #60 tab 08/02/17 [Rx] Follow up Appointment(s)/Referral(s): Cayden Luther DO [REFERRING] - 1 Week [facility], [NON-STAFF] - Dirk Denise MD [STAFF PHYSICIAN] - 1 Week Activity/Diet/Wound Care/[phone] Discharge Disposition: HOME WITH HOME HEALTH SERVICES
--- NOTE | 2017-08-01 12:17 | P.PN ---
Subjective Progress Note Date: 08/01/17 This is a pleasant 56-year-old gentleman with history of CAD, status post stenting of LAD and circumflex, and chronic atrial fibrillation. Initially presented to [facility] with complaints of prolonged chest pain as well as syncopal episode while in the emergency department with a long positive more than 5 seconds. Patient apparently had been having similar episodes a few months ago but did not seek medical attention. She was advised to undergo cardiac catheterization to rule out any progression of ischemic heart disease. A catheterization revealed stable coronary artery disease with patent stents in LAD and the circumflex. Following Cardiac catheterization permanent pacemaker implantation was performed for sick sinus syndrome. Upon examination this morning, patient is resting comfortably in bed. He is in atrial fibrillation with a controlled ventricular response. LIC site remains quite tender. Chest x-ray showed satisfactory pacemaker placement. Awaiting pacemaker interrogation by [employer]. Objective - Vital Signs Vital signs: Vital Signs Temp 96.7 F L 08/01/17 08:00 Pulse 72 08/01/17 08:35 Resp 16 08/01/17 08:00 BP 119/82 08/01/17 08:00 Pulse Ox 94 L 08/01/17 08:00 Intake & Output 07/31/17 08/01/17 08/01/17 18:59 06:59 18:59 Intake Total 375 200 200 Output Total 500 825 400 Balance -125 -625 -200 Weight 101.8 kg Intake: IV 375 Oral 200 200 Output: Urine 500 825 400 Other: Voiding Method Urinal Urinal Urinal # Voids 1 1 - Exam PHYSICAL EXAMINATION: HEENT: Head is atraumatic, normocephalic. Pupils equal, round. Neck is supple. There is no elevated jugular venous pressure. HEART EXAMINATION: Heart sounds irregularly irregular, S1 and S2 normal. No murmur or gallop heard. CHEST EXAMINATION: Lungs are clear to auscultation and precussion. No chest wall tenderness is noted on palpation or with deep breathing. LIC site with dressing intact with small amount of drainage noted, mild ecchymosis noted laterally, site is soft without hematoma ABDOMEN: Soft, nontender. Bowel sounds are heard. No organomegaly noted. EXTREMITIES: 2+ peripheral pulses with no evidence of peripheral edema and no calf tenderness noted. NEUROLOGIC patient is awake, alert and oriented x3. . - Labs CBC & Chem 7: 08/01/17 05:55 08/01/17 05:55 Labs: Abnormal Lab Results - Last 24 Hours (Table) 07/31/17 07/31/17 07/31/17 Range/Units 17:16 20:32 23:49 Chloride (98-107) mmol/L BUN (9-20) mg/dL Glucose (74-99) mg/dL POC Glucose (mg/dL) 154 H 230 H 245 H (75-99) mg/dL 08/01/17 08/01/17 Range/Units 05:55 06:06 Chloride 108 H (98-107) mmol/L BUN 21 H (9-20) mg/dL Glucose 137 H (74-99) mg/dL POC Glucose (mg/dL) 153 H (75-99) mg/dL Assessment and Plan Assessment: #1 symptoms of chest pain in patient with underlying CAD, cardiac catheterization showed patent stents #2 syncope secondary to sick sinus syndrome with a pause of greater than 5 seconds #3 status post pacemaker placement #4 paroxysmal atrial fibrillation Plan: From cardiology perspective, pacemaker interrogation shows normal device function and measurements, patient may be discharged home today. We will resume Plavix today and Xarelto will be resumed tomorrow. He will follow-up in the office in the device clinic as well as with Dr. Denise in one week. Patient will determine at that time whether he would like to continue following with Dr. Denise or would like to resume follow-up with his primary [facility] hospitalist out of [place]. [employer] MACHINE note has been reviewed, I agree with a documented findings and plan of care. Patient was seen and examined.
[2017-08-01 12:37] LABS: Glucose,Whole Blood 187 mg/dL (75-99)
[2017-08-01] MEDS: DILTIAZEM 50 MG in SODIUM CHLORIDE 0.9% 40 ML IV SCH ×3 (12:38→20:51)
[2017-08-01] MEDS: CLOPIDOGREL 75 MG TAB PO SCH (15:22)
[2017-08-01 17:18] LABS: Glucose,Whole Blood 164 mg/dL (75-99)
[2017-08-01 20:38] LABS: Glucose,Whole Blood 141 mg/dL (75-99)
[2017-08-01] MEDS: INSULIN DETEMIR 100 UNIT/ML 10 ML VIAL SQ SCH (20:48)
[2017-08-01 23:34] VITALS: RESP 18
[2017-08-02] MEDS: HYDROcodone/APAP 5-325MG 1 EACH TAB PO PRN ×2 (04:53→11:04)
[2017-08-02 06:00] LABS: Glucose,Whole Blood 126 mg/dL (75-99)
[2017-08-02] MEDS: INSULIN ASPART 100 UNIT/ML 1 ML 10 ML VIAL SQ SCH ×2 (06:01→12:20)
[2017-08-02 07:32] VITALS: BP 122/86; TEMP 97.1
[2017-08-02] MEDS: ASPIRIN 81 MG PO SCH (07:36)
[2017-08-02] MEDS: ISOSORBIDE MONONITRATE ER 30 MG TAB.ER.24H PO SCH (07:36)
[2017-08-02] MEDS: ATORVASTATIN 40 MG TAB PO SCH (07:36)
[2017-08-02] MEDS: METOPROLOL TARTRATE 50 MG TAB PO SCH (07:36)
[2017-08-02] MEDS: CLOPIDOGREL 75 MG TAB PO SCH (07:36)
[2017-08-02] MEDS: amLODIPine 10 MG TAB PO SCH (07:36)
[2017-08-02] MEDS: MONTELUKAST 10 MG TAB PO SCH (07:37)
[2017-08-02] MEDS: TAMSULOSIN 0.4 MG CAP.ER.24H PO SCH (07:37)
[2017-08-02] MEDS: NICOTINE 21MG/24HR PATCH TRANSDERM SCH (07:38)
[2017-08-02] MEDS: ALBUTEROL NEBULIZED 2.5 MG/3 ML INHALATION SCH ×2 (07:42→11:24)
[2017-08-02] MEDS ORDERED: RIVAROXABAN 20 MG TAB PO SCH (09:00)
--- NOTE | 2017-08-02 09:22 | P.PN ---
Subjective Progress Note Date: 08/02/17 Principal diagnosis: Permanent pacemaker This is a pleasant 56-year-old gentleman who underwent 2 days ago permanent pacemaker implantation by Dr. Denise. The pacemaker was implanted for sick sinus syndrome. He does have history of coronary artery disease and prior stenting of the LAD and left circumflex with recent heart catheterization showing patent stents as well as history of chronic atrial fibrillation. The chest x-ray yesterday showed no acute abnormalities. The pacemaker was interrogated and was functioning normally. I'll follow-up with the patient today he seems to be more short of breath and he is requiring 3 L of nasal cannula to keep the saturation in the low 90s. Because of that a chest x-ray is in process to be repeated and also I am ordering a BNP. He does have crackles in the right lung base. Objective - Vital Signs Vital signs: Vital Signs Temp 97.1 F L 08/02/17 07:26 Pulse 88 08/02/17 07:54 Resp 18 08/02/17 07:26 BP 122/86 08/02/17 07:26 Pulse Ox 93 L 08/02/17 07:26 Intake & Output 08/01/17 08/02/17 08/02/17 18:59 06:59 18:59 Intake Total 690 200 Output Total 400 550 Balance 290 -350 Weight 100.5 kg Intake: Intake, IV Titration 100 Amount Sodium Chloride 0.9% 1, 100 000 ml As IV .[facility] Rx#:[id number] Oral 590 200 Output: Urine 400 550 Other: Voiding Method Urinal Urinal Urinal # Voids 1 1 - Constitutional General appearance: Present: no acute distress - Respiratory Respiratory: right: rales, left: CTA - Cardiovascular Heart sounds: normal: S1, S2 - Labs CBC & Chem 7: 08/01/17 05:55 08/01/17 05:55 Labs: Abnormal Lab Results - Last 24 Hours (Table) 08/01/17 08/01/17 08/01/17 Range/Units 12:25 17:05 20:35 POC Glucose (mg/dL) 187 H 164 H 141 H (75-99) mg/dL 08/02/17 Range/Units 05:58 POC Glucose (mg/dL) 126 H (75-99) mg/dL Assessment and Plan Assessment: Assessment #1 sinus syndrome and status post permanent pacemaker implantation #2 coronary artery disease and status post a stenting as described above #3 chronic atrial fibrillation #4 hypoxemia Plan #1 obtain a chest x-ray to rule out any pneumothorax #2 obtain a BNP level #3 follow-up with the patient.
--- NOTE | 2017-08-02 09:33 | XR ---
EXAMINATION TYPE: XR chest 2V DATE OF EXAM: 08/02/2017 HISTORY: yifan after pacemaker placement. REFERENCE: Previous study dated 08/01/2017. FINDINGS: There is a bipolar pacemaker in place, unchanged in appearance. There is no evidence of pne umothorax. Lung volumes are prominent. There is some minimal atelectasis at the left lung base. Lungs otherwise clear. Pleural spaces are clear. The heart is not enlarged.. IMPRESSION: MINIMAL PLATELIKE ATELECTASIS, LEFT LUNG BASE.
--- NOTE | 2017-08-02 10:35 | P.PN ---
Subjective Progress Note Date: 08/01/17 This is a 56-year-old male one of Dr. Bushra quinteros with a previous medical history significant for CAD post-PCI of the LAD back in 12/27/2015 followed by PCI of the left circumflex in January [address] Alicea at [facility], history of atrial fibrillation, hypertension and hypertensive cardio vascular disease, recurrent TIA as well as CVA with left- sided weakness, history of obesity with obstructive sleep apnea on CPAP, chronic tobacco use and dependence with COPD, diabetes mellitus type 2, patient was at [place] the day before yesterday when he felt that his heart is being erratic he ended up going to atrial fibrillation with possible RVR that time patient felt quite dizzy that time diaphoretic he ended up the coming to the ER at [facility] where he was found to have a positive disease in the ER at about 6 seconds and the patient passed out completely and the patient was admitted to the hospital he was seen in consultation by cardiology and the patient was given a decision to go for left heart catheterization at [facility] and apparent pacemaker placement due to the tachybradycardia syndrome and the patient was transferred from [facility] into [facility] where he was seen in consultation by cardiology ended up going for a permanent pacemaker placement after heart catheterization that failed to show any obstructive heart disease. Patient was ambulated and his pulse ox dropped to 87% and then down 84%. His chest x-ray this morning showed no complications. Satisfactory pacemaker placement. Discharge held and patient will be monitored overnight. Patient states that he does have some chronic problems with shortness of breath and also has sleep apnea. Objective - Vital Signs Vital signs: Vital Signs Temp 97.1 F L 08/02/17 07:26 Pulse 88 08/02/17 07:54 Resp 18 08/02/17 07:26 BP 122/86 08/02/17 07:26 Pulse Ox 93 L 08/02/17 07:26 Intake & Output 08/01/17 08/02/17 08/02/17 18:59 06:59 18:59 Intake Total 690 200 Output Total 400 550 Balance 290 -350 Weight 100.5 kg Intake: Intake, IV Titration 100 Amount Sodium Chloride 0.9% 1, 100 000 ml As IV .[facility] Rx#:[id number] Oral 590 200 Output: Urine 400 550 Other: Voiding Method Urinal Urinal Urinal # Voids 1 1 - Exam General appearance: average body habitus, no acute distress - EENT Eyes: anicteric sclerae, EOMI, PERRLA, no ptosis, no scleral icterus, normal appearance ENT: hearing grossly normal, NA/AT, normal oropharynx, no thrush Ears: bilateral: normal - Neck Neck: no lymphadenopathy, normal ROM, no rigidity, no stridor, no thyromegaly Carotids: bilateral: upstroke normal Thyroid: bilateral: normal size - Respiratory Respiratory: bilateral: diminished, prolonged expiration, negative: dullness, rales, rhonchi, wheezing - Cardiovascular Rhythm: irregularly irregular Heart sounds: normal: S1, S2 Abnormal Heart Sounds: systolic murmur - Gastrointestinal General gastrointestinal: normal bowel sounds, soft, no splenomegaly, no tenderness, no umbilical hernia, no ventral hernia - Integumentary Integumentary: normal, normal turgor - Neurologic Neurologic: CNII-XII intact - Musculoskeletal Musculoskeletal: strength equal bilaterally - Psychiatric Psychiatric: A&O x's 3, appropriate affect, intact judgment & insight - Labs CBC & Chem 7: 08/01/17 05:55 08/01/17 05:55 Labs: Abnormal Lab Results - Last 24 Hours (Table) 08/01/17 08/01/17 08/01/17 Range/Units 12:25 17:05 20:35 POC Glucose (mg/dL) 187 H 164 H 141 H (75-99) mg/dL 08/02/17 Range/Units 05:58 POC Glucose (mg/dL) 126 H (75-99) mg/dL Assessment and Plan Plan: 1. Sick sinus syndrome or tachybradycardia syndrome. Patient was admitted to the hospital, left heart cath physician was done did not show any evidence of acute abnormalities, he continues to have patent stent in the LCx and LAD, he underwent permanent pacer placement that was done successfully, he would be kept in the hospital for another 24 hours, he'll be discharged home tomorrow morning. 2. Hypertension and hypertensive cardiovascular disease. Continue metoprolol 100 mg orally twice every day, continue lisinopril , amlodipine 10 mg orally once every day. 3. Hyperlipidemia. Continue patient on Lipitor 40 mg orally once every day. 4. Enlarged prostate. Continue Flomax 0.4 mg orally once every day. 5. A. fib status post permanent pacemaker placement. Continue Cardizem drip for now, continue metoprolol 100 mg orally twice every day, restart the patient back on Xarelto at 20 mg orally once every day. 6. History of kidney stones. Stable at this time. 7. Obstructive sleep apnea. Continue CPAP. 8. Recurrent TIA/CVA. Resume Xarelto 20 mg orally once every day, and aspirin 81 mg orally once every day. 9. CAD post-PCI of the LCx and LAD. Status post left heart catheterization that did not show any evidence of acute abnormalities. Continue patient on Imdur 30 mg orally once every day, metoprolol 100 mg orally twice every day, Lipitor 40 mg orally once every day, and aspirin 81 mg once every day. 10. Chronic tobacco use and dependence with COPD. Continue DuoNeb as needed. Smoking cessation and counseling. 11. Diabetes mellitus type 2. Start the patient on Levemir 22 units of bedtime along with a sliding scale insulin. Hold off metformin for now. 12. Admitted to inpatient. Estimate a length of stay 2 midnights. 13. Patient is full code. Discharge Plan: Home Impression and plan of care have been directed as dictated by the signing physician. Di Francisco nurse practitioner acting as scribe for signing physician.
[2017-08-02 11:31] LABS: Glucose,Whole Blood 189 mg/dL (75-99)
[2017-08-02 11:37] VITALS: PULSE 88
[2017-08-02] MEDS ORDERED: RIVAROXABAN 15 MG TAB PO SCH (17:30)
--- NOTE | 2017-08-04 10:04 | P.PCN ---
Date of Procedure: 08/04/17 Preoperative Diagnosis: Sinus syndrome with syncope Postoperative Diagnosis: The same Procedure(s) Performed: Dual-chamber permanent pacemaker implantation, axillary venography Description of Procedure: HISTORY: This is a 56-year-old gentleman with history of coronary artery disease and paroxysmal atrial fibrillation who was admitted to [facility] with complaints of chest pain and also an episode of documented syncope associated with long pauses. Patient has paroxysmal atrial fibrillation. Patient is advised to have permanent pacemaker implantation because of recurrent syncopes. CONSENT:I have discussed the risks, benefits and alternative therapies for the above-mentioned procedure and for both sedation/analgesia as well as necessary blood product administration, if indicated, as they pertain to this patient. The patient has indicated understanding and acceptance of the risks and procedures discussed. PROCEDURE: Patient was brought to the lab in a fasting state. Patient was prepped and draped in the usual fashion. Patient was given IV sedation with fentanyl and Versed. The skin below the left clavicle was infiltrated with lidocaine. An incision was made parallel to deltopectoral groove was deepened until the pectoral fascia was exposed. A pocket was created by blunt dissection and cautery. Axillary venography was performed to delineate the course of the axillary vein. 2 sticks were performed into extrathoracic portion of the axillary vein and 2 sheaths were advanced over the guidewires and left in subclavian vein. Conscious Sedation: Versed 1mg Fentanyl 25g Duration 61minutes LEADS: ATRIAL: This is manufactured by [employer]. Model number is [id number] and the serial number is [id number] VENTRICULAR: This is manufactured by [employer]. Model number is [id number]. The serial number is [id number] The ventricular lead is maneuvered l with help of a straight and curved stylets into the left ventricle apical region. Satisfactory position was obtained and threshold measurements were made. The atrial lead was then maneuvered into the right atrial appendage. And thresholds were obtained. THRESHOLDS: ATRIUM: The threshold was not measured because patient was in atrial fibrillation. The impedance was 574. The flutter waves are 3 mV. VENTRICLE: The minimum patient threshold was 0. 8 with a pulse width of 0.5. The impedance is 7100. The R-wave was 8 mV. The leads and pulse generator remained in the pocket after it was washed with antibiotics. Pocket was closed in the usual fashion. The fascia was closed with 2-0 Prolene ,the subcutaneous tissue was closed with 3-0 Prolene and the skin was closed with 4-0 Prolene. PROGRAMMING: MODE: AAIR with mode switching to DDDR RATE: 60 to 130 OUTPUT: Atrium: 3.5 V Ventricle: 3.5 V FINAL IMPRESSION: Successful implantation of permanent pacemaker, dual-chamber. Axillary venography COMPLICATIONS: None PLAN: Patient will be monitored on the telemetry unit. If stable patient will be discharged home tomorrow. Chest x-ray in the morning. We'll continue prophylactic antibiotics.
== END 2017-08-02 16:15 | disposition home health service (06) | DRG 243 ==
LOC: 6SEL 17:33
PROVIDERS: ADMIT Internal Medicine; ATTEND Internal Medicine
PROC: 0JH606Z Insertion of Pacemaker, Dual Chamber into Chest Subcutaneous Tissue and Fascia, Open Approach (ICD-10-PCS; principal; 2017-07-31 10:14)
PROC: 02HL3JZ Insertion of Pacemaker Lead into Left Ventricle, Percutaneous Approach (ICD-10-PCS; principal; 2017-07-31 10:14)
PROC: 4A023N7 Measurement of Cardiac Sampling and Pressure, Left Heart, Percutaneous Approach (ICD-10-PCS; principal; 2017-07-31 10:14)
PROC: 02H63JZ Insertion of Pacemaker Lead into Right Atrium, Percutaneous Approach (ICD-10-PCS; principal; 2017-07-31 10:14)
PROC: B2111ZZ Fluoroscopy of Multiple Coronary Arteries using Low Osmolar Contrast (ICD-10-PCS; principal; 2017-07-31 10:14)
DX: I49.5 Sick sinus syndrome (principal); J96.11 Chronic respiratory failure with hypoxia; I11.9 Hypertensive heart disease without heart failure; I10 Essential (primary) hypertension; I69.354 Hemiplegia and hemiparesis following cerebral infarction affecting left non-dominant side; I48.0 Paroxysmal atrial fibrillation; E11.9 Type 2 diabetes mellitus without complications; E78.5 Hyperlipidemia, unspecified; F17.210 Nicotine dependence, cigarettes, uncomplicated; I25.10 Atherosclerotic heart disease of native coronary artery without angina pectoris; I48.2 Chronic atrial fibrillation; G47.33 Obstructive sleep apnea (adult) (pediatric); J44.9 Chronic obstructive pulmonary disease, unspecified; E66.9 Obesity, unspecified; N40.0 Benign prostatic hyperplasia without lower urinary tract symptoms; Z95.5 Presence of coronary angioplasty implant and graft; Z99.89 Dependence on other enabling machines and devices; I25.2 Old myocardial infarction; Z79.01 Long term (current) use of anticoagulants; Z79.02 Long term (current) use of antithrombotics/antiplatelets; Z79.82 Long term (current) use of aspirin; Z79.899 Other long term (current) drug therapy; Z80.3 Family history of malignant neoplasm of breast; Z83.3 Family history of diabetes mellitus; Z82.49 Family history of ischemic heart disease and other diseases of the circulatory system; Z82.5 Family history of asthma and other chronic lower respiratory diseases; Z87.442 Personal history of urinary calculi; Z68.32 Body mass index [BMI] 32.0-32.9, adult; Z71.6 Tobacco abuse counseling
CPT/HCPCS: 33208; 71046; 80048; 83735; 83880; 85025; 93454; 94640; 94760

== ENCOUNTER 2018-05-04 12:57 | Day surgery (SDC) | payer MEDICARE ==
[~2018-05-04 12:57] MED LIST changes: +LACTATED RINGERS 1,000 ML IV SCH; +MORPHINE SULFATE 2 MG/ML SYRINGE IV PRN; +SODIUM CHLORIDE 0.9% 1,000 ML IV SCH; -ceFAZolin 2 GM in SODIUM CHLORIDE 0.9% 100 ML IVPB ONE
[2018-05-04 14:58] LABS: Glucose,Whole Blood 107 mg/dL (75-99)
[2018-05-04 15:11] LABS: Basophils # (A) 0.1 k/uL (0-0.2); Basophils % (A) 1 %; Eosinophils # (A) 0.4 k/uL (0-0.7); Eosinophils % (A) 5 %; HCT 47.4 % (39.0-53.0); HGB 16.1 gm/dL (13.0-17.5); Lymphocytes # (A) 2.1 k/uL (1.0-4.8); Lymphocytes % (A) 30 %; MCH 29.5 pg (25.0-35.0); MCV 86.7 fL (80.0-100.0); Mean Platelet Volume 6.8; Monocytes # (A) 0.6 k/uL (0-1.0); Monocytes % (A) 8 %; Neutrophils # (A) 3.7 k/uL (1.3-7.7); Neutrophils % (A) 53 %; Platelet Count 270 k/uL (150-450); RBC 5.47 m/uL (4.30-5.90); RDW 13.2 % (11.5-15.5)
[2018-05-04] MEDS ORDERED: PROTAMINE SULFATE 10 MG/ML 5 ML VIAL IV ONE (16:36)
[2018-05-04] MEDS ORDERED: HEPARIN SODIUM,PORCINE 5,000 UNIT/ML 1 ML VIAL ONE (16:36)
[2018-05-04] MEDS ORDERED: ePHEDrine SULFATE/0.9% NACL/PF 50 MG/5 ML SYRINGE IV ONE (16:36)
[2018-05-04] MEDS ORDERED: fentaNYL (PF) 50 MCG/ML 2 ML AMP ONE (16:36)
[2018-05-04] MEDS ORDERED: MIDAZOLAM 2 MG/2 ML VIAL ONE (16:36)
[2018-05-04] MEDS ORDERED: PHENYLEPHRINE-0.9% NACL SYG 1 MG/10 ML SYRINGE ONE (16:36)
[2018-05-04] MEDS ORDERED: SUCCINYLCHOLINE CHLORIDE 100 MG/5 ML SYR IV ONE (16:36)
[2018-05-04] MEDS ORDERED: PROPOFOL 10 MG/ML 20 ML VIAL IV ONE (16:36)
[2018-05-04] MEDS ORDERED: LIDOCAINE 1% INJ 10MG/ML (20 ML MDV) ONE (17:03)
[2018-05-04] MEDS ORDERED: LIDOCAINE 1% INJ 10MG/ML (20 ML MDV) SQ ONE (17:07)
[2018-05-04] MEDS ORDERED: HEPARIN SOD,PORK IN 0.45% NACL 25,000 UNIT in 0.45% NACL 1 250ML.BAG IV ONE (17:08)
[2018-05-04] MEDS ORDERED: ceFAZolin IN SWFI 2 GM/20 ML SYRINGE IVP STA (17:30)
[2018-05-04] MEDS ORDERED: ACETAMINOPHEN TAB 325 MG TAB PO PRN (18:54)
[2018-05-04] MEDS ORDERED: ACETAMINOPHEN IV (For NPO) 1,000 MG in EMPTY BAG 1 BAG IVPB ONE (18:54)
[2018-05-04] MEDS ORDERED: ALPRAZolam 0.25 MG TAB PO PRN (18:56)
--- NOTE | 2018-05-04 19:13 | P.PCN ---
Preoperative Diagnosis: Diagnosis Atrial fibrillation, symptomatic, refractory to therapy, persistent A. fib Result Successful pulmonary vein isolation of all veins using cryo-ablation Complete entrance block in all 4 veins confirmed No evidence for phrenic nerve injury When the achieve catheter was placed in the right superior pulmonary vein for mapping, atrial fibrillation terminated Esophageal deflection NO Electrical cardioversion with a synchronized shock across the chest NO Procedure details Patient was brought to the EP lab in a fasting state. Written informed consent was obtained prior to the procedure. Procedure performed under general anesthesia After initial muscle relaxant use, muscle relaxants were not given thereafter in order to assess phrenic nerve during procedure. Patient prepped and draped as per protocol Full cryo-set up with standard preparation of the cryoablation tools done. Femoral Venous access obtained on the right and left groins Venous and arterial Sheaths placed. Diagnostic catheters for the high right atrium, phrenic nerve stimulation and pacing, His bundle, RV and coronary sinus placed Intracardiac echo catheter placed. Long sheath placed in the right atrium Left and right transseptal catheterization performed under intracardiac echo guidance. Intravenous heparin with aCT above 300 Later, catheter positioning and balloon positioning in the left atrium, under intracardiac echo guidance Comprehensive diagnostic EP study with Drug infusion Coronary sinus pacing and recording Baseline measurements Atrial paced rhythm during sinus rhythm Atrial pacing performed from the high right atrium and the coronary sinus RV pacing VA interval 187 ms QT 399 ms AH 40 ms, HV 39 ms AV node Wenckebach block for 90 ms VA Wenckebach block 390 ms Sinus node recovery time@600 ms was 1042 ms CS pacing, AV node Wenckebach block 390 ms on Isuprel Transseptal catheterization performed RA pressure 19/9/15 LA pressure 20/11/15 Transseptal catheterization performed with standard sheath. The cryoablation sheath was then placed with an over the wire exchange without any acute complications. All 4 pulmonary veins were isolated in the following sequence: Left superior followed by left inferior followed by right superior followed by right inferior The cryo-ablation balloon was placed at the os of each vein 1.5 mL of IV dye was injected to confirm an occluded vein Goal during cryoablation was to achieve complete occlusion of the pulmonary vein , achieve -30C at 30 seconds and achieve -40C at 60 seconds and a time to affect of less than 60-90 seconds, . If not the balloon was repositioned to obtain this result After completion of Cryoblation with durations from 180-240 seconds, entrance block was confirmed with the Attain circular catheter in a roving fashion around the antrum of the pulmonary veins Phrenic nerve pacing was performed from the SVC, right innominate vein area and diaphragm voltage was monitored. Diaphragmatic contractions were also monitored manually for strength of contraction. Parameter goals for each cryo freeze -30 C by 30 seconds -40 degrees C by 60 seconds Minimum between minus 40-55C Thaw time greater than 10 seconds Balloon visualized by intracardiac echo The esophagus was intubated. Esophageal Temperature monitoring with a CIRCA catheter formed. Esophageal deflection for hypothermia of the esophagus below 32C Left superior pulmonary vein 3 minute followed by 2 minute cryo lesions complete isolation Left inferior pulmonary vein 3 minute followed by 2 minute cryo lesions, complete isolation Right superior pulmonary vein, during phrenic nerve pacing 3 minute cryo lesion, isolation with and 45 seconds Right inferior pulmonary vein, during phrenic nerve pacing 3 minute followed by 2 minute cryo lesions complete isolation At the end of the procedure the Achieve catheter was once again used to check for entrance block Phrenic nerve stimulation was performed to confirm diaphragmatic stimulation the end of the procedure Cine fluoroscopy was performed at the very end of the procedure to confirm movement of both diaphragms with inspiration and expiration At the end of the procedure the patient was extubated Heparin was reversed Venous sheaths were removed and hemostasis assured Procedures performed (PVI - CRYO Ablation) Invasive hemodynamic monitoring while general anesthesia, right femoral arterial line for monitoring and sampling Comprehensive diagnostic EP study CS pacing and recording Left and right transseptal catheterization Catheter the mapping of the tachycardia (NOT 3D mapping) Intracardiac echocardiography Pulmonary vein isolation with transseptal and comprehensive EPS, [id number] Drug Infusion +[id number] Dual-chamber pacemaker interrogation with reprogramming
[2018-05-04] MEDS ORDERED: IOPAMIDOL-370 100ML BTL INJ ONE (19:16)
[2018-05-04] MEDS ORDERED: RIVAROXABAN 20 MG TAB PO SCH (19:45)
[2018-05-04] MEDS: METOPROLOL TARTRATE 50 MG TAB PO SCH (21:36)
[2018-05-04] MEDS: FAMOTIDINE 20 MG/2 ML VIAL IV SCH (21:36)
[2018-05-04 21:55] VITALS: BMI 32.3
[2018-05-04] MEDS: COLCHICINE 0.6 MG EACH PO SCH (21:56)
[2018-05-04] MEDS ORDERED: DILTIAZEM ORAL 30 MG TAB PO SCH (22:00)
[2018-05-04 22:28] VITALS: RESP 18
[2018-05-05 06:37] LABS: Glucose,Whole Blood 126 mg/dL (75-99)
[2018-05-05] MEDS: HYDROcodone/APAP 5-325MG 1 EACH TAB PO PRN ×3 (07:01→16:01)
[2018-05-05] MEDS: ALBUTEROL NEBULIZED 2.5 MG/3 ML INHALATION PRN ×2 (07:01→11:22)
[2018-05-05] MEDS: FAMOTIDINE 20 MG/2 ML VIAL IV SCH (08:08)
[2018-05-05] MEDS: METOPROLOL TARTRATE 50 MG TAB PO SCH (08:08)
[2018-05-05] MEDS: COLCHICINE 0.6 MG EACH PO SCH (08:13)
[2018-05-05] MEDS: FUROSEMIDE 40 MG TAB PO SCH ×2 (08:13→09:15)
--- NOTE | 2018-05-05 08:13 | P.DS ---
Providers Attending physician: Montrell Tan Primary care physician: Cayden Johnson [facility] Course: Patient is doing well. He has a little bit of cough and sore throat. He also has chest discomfort when he coughs. When he holds his breath. Screening he has absolutely no chest discomfort. He does not appear short of breath he is lying comfortably in bed. His right groin is tender. Sutures are removed is a small hematoma in relation to the venous puncture on the right groin this is about a centimeter in diameter. No deep tenderness and absolutely no bruits audible Examination is normal no murmurs S1 normal S2 soft systolic murmur no rub Breath sounds are clear no rhonchi no crackles Abdomen is soft nontender No noted 70 edema No JVD The patient 113/87 mmHg pulse rate in the 80s atrial paced rhythm afebrile at 7.5F Twelve-lead ECG was reviewed and shows atrial paced rhythm with T-wave inversions in the precordial leads consistent with an old anterior wall [place]. He is had a coronary stent placed in the past and is on Plavix hence the dose of xarelto is only 15 mg by mouth daily Plan Ambulate in the hallways line oral hydration Colchicine Pepcid and pain medications for the groin If hemodynamic are stable and ambulating comfortably in the hallways he should go home and follow-up with Dr. Denise later this week on Thursday No changes in his medications He has a a prescription for [place] for 5 days and colchicine for 3 days Plan - Discharge Summary Discharge Rx Participant: Yes New Discharge Prescriptions: No Action Nitroglycerin Sl Tabs [Nitrostat] 0.4 mg SUBLINGUAL Q5M PRN PRN Reason: Chest Pain amLODIPine [Norvasc] 10 mg PO DAILY Montelukast [Singulair] 10 mg PO DAILY Albuterol Nebulized [Ventolin Nebulized] 2.5 mg INHALATION RT-QID PRN PRN Reason: Shortness Of Breath ALPRAZolam [Xanax] 0.25 mg PO DAILY PRN PRN Reason: Anxiety Tamsulosin [Flomax] 0.4 mg PO DAILY Albuterol Inhaler [Ventolin Hfa Inhaler] 1 - 2 puff INHALATION RT-QID PRN PRN Reason: Shortness Of Breath Atorvastatin [Lipitor] 40 mg PO DAILY Clopidogrel [Plavix] 75 mg PO DAILY Diltiazem Oral [Cardizem*] 30 mg PO TID Isosorbide Mononitrate ER [Imdur] 30 mg PO DAILY Metoprolol Tartrate [Lopressor] 100 mg PO Q12HR #60 tab Nicotine 21Mg/24Hr Patch [Habitrol] 1 patch TRANSDERM DAILY #30 patch HYDROcodone/APAP 5-325MG [[place] 5-325] 1 each PO Q6HR PRN #15 tab PRN Reason: Pain metFORMIN HCL [Glucophage] 500 mg PO BID #60 tab Rivaroxaban [Xarelto] 15 mg PO DAILY #30 tab Discharge Medication List Nitroglycerin Sl Tabs [Nitrostat] 0.4 mg SUBLINGUAL Q5M PRN 08/28/13 [History] Montelukast [Singulair] 10 mg PO DAILY 05/16/15 [History] amLODIPine [Norvasc] 10 mg PO DAILY 05/16/15 [History] ALPRAZolam [Xanax] 0.25 mg PO DAILY PRN 04/29/16 [History] Albuterol Inhaler [Ventolin Hfa Inhaler] 1 - 2 puff INHALATION RT-QID PRN [History] Albuterol Nebulized [Ventolin Nebulized] 2.5 mg INHALATION RT-QID PRN 04/29/16 [ History] Tamsulosin [Flomax] 0.4 mg PO DAILY 04/29/16 [History] Atorvastatin [Lipitor] 40 mg PO DAILY 07/30/17 [History] Clopidogrel [Plavix] 75 mg PO DAILY 07/30/17 [History] Diltiazem Oral [Cardizem*] 30 mg PO TID 07/30/17 [History] Isosorbide Mononitrate ER [Imdur] 30 mg PO DAILY 07/30/17 [History] Metoprolol Tartrate [Lopressor] 100 mg PO Q12HR #60 tab 08/01/17 [Rx] Nicotine 21Mg/24Hr Patch [Habitrol] 1 patch TRANSDERM DAILY #30 patch 08/01/17 [ Rx] HYDROcodone/APAP 5-325MG [[place] 5-325] 1 each PO Q6HR PRN #15 tab 08/02/17 [Rx] Rivaroxaban [Xarelto] 15 mg PO DAILY #30 tab 08/02/17 [Rx] metFORMIN HCL [Glucophage] 500 mg PO BID #60 tab 08/02/17 [Rx] Follow up Appointment(s)/Referral(s): Dirk Denise MD [STAFF PHYSICIAN] - 1 Week Activity/Diet/Wound Care/Special Instructions: Post EP study - Ablation instructions 1. Keep access sites dry for 2 days. 2. No heavy lifting or straining for 2 days. 3. Avoid bending the hips repeatedly for 2 days. 4. You may go up and down stairs slowly Call if the following is noted 1. Bleeding, increasing swelling or pain at the access sites. 2. Increasing chest discomfort, especially upon taking a deep breath. 3. Increasing shortness of breath, at rest or with exertion. 4. Undue cough / phlegm 5. Difficulty or pain while swallowing. 6. Pain or change in color in the extremities. 7. Fever, chills, rigors. 8. Increasing headache or neurologic symptoms. 9. Dizziness, fainting, palpitations Discharge Disposition: HOME SELF-CARE
[2018-05-05 08:26] LABS: Anion Gap 8 mmol/L; Blood Urea Nitrogen 13 mg/dL (9-20); Calcium 8.7 mg/dL (8.4-10.2); Carbon Dioxide 25 mmol/L (22-30); Chloride 108 mmol/L (98-107); Glucose 145 mg/dL (74-99); Potassium 4.2 mmol/L (3.5-5.1); Sodium 141 mmol/L (137-145)
[2018-05-05] MEDS ORDERED: RIVAROXABAN 20 MG TAB PO SCH (09:00)
[2018-05-05] MEDS ORDERED: RIVAROXABAN 15 MG TAB PO SCH (09:00)
[2018-05-05] MEDS ORDERED: TAMSULOSIN 0.4 MG CAP.ER.24H PO SCH (09:00)
[2018-05-05] MEDS ORDERED: amLODIPine 10 MG TAB PO SCH (09:00)
[2018-05-05] MEDS ORDERED: CLOPIDOGREL 75 MG TAB PO SCH (09:00)
[2018-05-05] MEDS ORDERED: ATORVASTATIN 40 MG TAB PO SCH (09:00)
[2018-05-05] MEDS ORDERED: ISOSORBIDE MONONITRATE ER 30 MG TAB.ER.24H PO SCH (09:00)
[2018-05-05 12:03] LABS: Glucose,Whole Blood 236 mg/dL (75-99)
[2018-05-05 15:37] VITALS: BP 99/65; PULSE 78; TEMP 98.1
[2018-05-05 16:51] LABS: Glucose,Whole Blood 129 mg/dL (75-99)
[2018-05-05] MEDS ORDERED: MONTELUKAST 10 MG TAB PO SCH (21:00)
[2018-05-06] MEDS ORDERED: metFORMIN 500 MG TAB PO SCH (17:30)
== END 2018-05-05 17:26 | disposition home or self-care (01) ==
LOC: CATHEP 12:57 → 1SOBS 18:45 → CATHEP 05-05 17:26
PROVIDERS: ATTEND Internal Medicine Clinical Cardiac Electrophysiology
DX: I48.1 Persistent atrial fibrillation (principal); I25.10 Atherosclerotic heart disease of native coronary artery without angina pectoris; I10 Essential (primary) hypertension; E78.49 Other hyperlipidemia; I49.5 Sick sinus syndrome; Z95.0 Presence of cardiac pacemaker; Z72.0 Tobacco use; I25.5 Ischemic cardiomyopathy; Z79.01 Long term (current) use of anticoagulants; Z79.84 Long term (current) use of oral hypoglycemic drugs; Z79.02 Long term (current) use of antithrombotics/antiplatelets; Z79.82 Long term (current) use of aspirin; Z79.899 Other long term (current) drug therapy; Z95.5 Presence of coronary angioplasty implant and graft; F41.9 Anxiety disorder, unspecified
CPT/HCPCS: 94640 ×2; 85347; 93623; 93662; 93609; 93656; 80048; 85025; C1769 ×4; C1894 ×3; C1730 ×2; C1759; C1893; C1733; C1766; J2250; J2720; J1644 ×2; J2001; J3010; J2270; J0131; J2370; J0330; J2704; J0690; Q9967

== ENCOUNTER 2019-04-09 20:06 | Emergency (ER) | payer MEDICARE ==
[2019-04-09 20:23] VITALS: TEMP 98
[2019-04-09 20:38] VITALS: RESP 18
--- NOTE | 2019-04-09 20:57 | ED ---
General Adult HPI - General Chief complaint: Chest Pain Stated complaint: elevated blood pressure Time Seen by Provider: 04/09/19 20:20 Source: patient Mode of arrival: ambulatory Limitations: no limitations - History of Present Illness Initial comments: The patient is a 58-year-old male with history of A. fib, COPD on 2 L of home oxygen, diabetes and CVA with some left-sided weakness presents to emergency room with reported headache. He states that he was shopping when he had onset of a headache. Admits relatively sudden onset but denies maximal intensity. States that slowly grew on him. No associated visual changes. Denies fevers or neck stiffness. No blunt head trauma. He did feel as if he had some weakness in his left lower extremity and numbness in his left cheek. Patient does have some chronic transient weakness from his previous stroke. States he underwent physical therapy and speech therapy and regained most of the function back. Occasionally will have episodes where he feels mildly weak. There was no confusion or speech difficulties from the patient. He did take an aspirin. He recorded his blood pressure and it was noted to be high at home. He continued to feel "funny" and therefore his family brought him into the emergency room for evaluation. He states while he did on the waiting room he had complete resoluti on of his symptoms. Recently saw his hedis specialist and had his pacemaker interrogated. He has a history of A. fib and was told that he may need an ablation. He admits to chest pressure without shortness of breath. Denies any additional symptoms to include abdominal pain or changes in his bowel or bladder habits. There are no alleviating, precipitating or modifying factors - Related Data Home Medications Medication Instructions Recorded Confirmed Nitroglycerin Sl Tabs [Nitrostat] 0.4 mg SUBLINGUAL Q5M PRN 08/28/13 04/28/18 Montelukast [Singulair] 10 mg PO DAILY 05/16/15 05/04/18 amLODIPine [Norvasc] 10 mg PO DAILY 05/16/15 05/04/18 ALPRAZolam [Xanax] 0.25 mg PO DAILY PRN 04/29/16 05/04/18 Albuterol Inhaler [Ventolin Hfa 1 - 2 puff INHALATION RT-QID PRN 04/29/16 04/28/18 Inhaler] Albuterol Nebulized [Ventolin 2.5 mg INHALATION RT-QID PRN 04/29/16 05/04/18 Nebulized] Tamsulosin [Flomax] 0.4 mg PO DAILY 04/29/16 05/04/18 Atorvastatin [Lipitor] 40 mg PO DAILY 07/30/17 05/04/18 Clopidogrel [Plavix] 75 mg PO DAILY 07/30/17 05/04/18 Diltiazem Oral [Cardizem*] 30 mg PO TID 07/30/17 05/04/18 Isosorbide Mononitrate ER [Imdur] 30 mg PO DAILY 07/30/17 05/04/18 Previous Rx's Medication Instructions Recorded Metoprolol Tartrate [Lopressor] 100 mg PO Q12HR #60 tab 08/01/17 Nicotine 21Mg/24Hr Patch [Habitrol] 1 patch TRANSDERM DAILY #30 patch 08/01/17 HYDROcodone/APAP 5-325MG [[place] 1 each PO Q6HR PRN #15 tab 08/02/17 5-325] Rivaroxaban [Xarelto] 15 mg PO DAILY #30 tab 08/02/17 metFORMIN HCL [Glucophage] 500 mg PO BID #60 tab 08/02/17 Allergies Allergy/AdvReac Type Severity Reaction Status Date / Time No Known Allergies Allergy Verified 04/28/18 15:02 Review of Systems ROS Statement: Those systems with pertinent positive or pertinent negative responses have been documented in the HPI. ROS Other: All systems not noted in ROS Statement are negative. Past Medical History Past Medical History: Atrial Fibrillation, COPD, CVA/TIA, Diabetes Mellitus, Osteoarthritis (OA), Prostate Disorder, Sleep Apnea/CPAP/BIPAP Additional Past Medical History / Comment(s): SEE DR DURAN H&P MILD CVA 03/27/16, WEAKNESS LT LEG AND ARM and when tired lt foot drag at times. "SPOT ON LIVER, BEING WATCHED" HX KIDNEY STONE, USES O2 OCCAS. AT 2L History of Any Multi-Drug Resistant Organisms: None Reported Past Surgical History: Heart Catheterization, Heart Catheterization With Stent, Orthopedic Surgery, Pacemaker Additional Past Surgical History / Comment(s): 08/29/13 Cath with 50-60% stenosis L cx treated medically, possible PTCA about 10 yrs ago per pt old medical records. EXC Bilateral Feet BUNIONS. ORIF Right Wrist Surgery - TOOK BONE FROM RT HIP. PTCA W/ 1 STENT X2 IN 12/2015. cryo ablation 05/04/2018 for afib Past Anesthesia/Blood Transfusion Reactions: No Reported Reaction Date of Last Stent Placement:: 01/03/16 Type of Cardiac Device: Permanent Pacemaker Device Placement Date:: 07-30-17 Past Psychological History: Anxiety Smoking Status: Current some day smoker Past Alcohol Use History: None Reported Past Drug Use History: None Reported - Past Family History Mother Family Medical History: Cancer, Diabetes Mellitus Brother(s) Family Medical History: Renal Disease Sister(s) Family Medical History: AFIB Daughter(s) Family Medical History: Cancer Additional Family Medical History / Comment(s): SKIN CANCER Son(s) Family Medical History: No Reported History General Exam Limitations: no limitations General appearance: alert, in no apparent distress Head exam: Present: atraumatic, normocephalic, normal inspection Eye exam: Present: normal appearance, PERRL, EOMI. Absent: scleral icterus, conjunctival injection, periorbital swelling ENT exam: Present: normal exam, mucous membranes moist Neck exam: Present: normal inspection. Absent: tenderness, meningismus, lymphadenopathy Respiratory exam: Present: normal lung sounds bilaterally. Absent: respiratory distress, wheezes, rales, rhonchi, stridor Cardiovascular Exam: Present: regular rate, normal rhythm, normal heart sounds. Absent: systolic murmur, diastolic murmur, rubs, gallop, clicks GI/Abdominal exam: Present: soft, normal bowel sounds. Absent: distended, tenderness, guarding, rebound, rigid Extremities exam: Present: normal inspection, full ROM, normal capillary refill. Absent: tenderness, pedal edema, joint swelling, calf tenderness Back exam: Present: normal inspection Neurological exam: Present: alert, oriented X3, CN II-XII intact Psychiatric exam: Present: normal affect, normal mood Skin exam: Present: warm, dry, intact, normal color. Absent: rash Course Vital Signs 04/09/19 04/09/19 04/09/19 20:17 20:36 20:38 Temperature 98 F Pulse Rate 81 72 Pulse Rate [ 75 Bilateral Promotions Representative ] Respiratory 16 18 Rate Blood Pressure 161/101 132/104 O2 Sat by Pulse 93 L 99 Oximetry 04/09/19 04/09/19 04/09/19 21:21 22:02 22:29 Temperature Pulse Rate 65 65 78 Pulse Rate [ Bilateral Promotions Representative ] Respiratory 18 18 18 Rate Blood Pressure 109/68 102/67 103/70 O2 Sat by Pulse 97 93 L 100 Oximetry EKG Findings - EKG Comments: EKG Findings:: EKG demonstrates a paced rhythm with a rate of 78. [place] interval 146. QRS 92. QTC of 451. Pacemaker appears to capture appropriately. No acute ST segment elevations or depressions concerning for ischemic changes Medical Decision Making - Medical Decision Making Upon arrival the patient was placed into room 4. A thorough history and physical exam was performed. NIH stroke scale is performed and is 0. Twelve- lead EKG is performed and demonstrates no acute changes. The patient is hypertensive with a diastolic of 104. I did recommend laboratory studies and a CT of the patient's brain. CBC is unremarkable. Coags are normal. Chemistries show a glucose of 198. Troponin is negative. CT of the patient's brain demonstrates no acute intracranial abnormality chest x-ray demonstrates atelectasis at the lung bases. CT angiography demonstrates normal CT angiogram of the neck and brain. I did discuss these results with the patient. Serial neurologic exams demonstrates a negative stroke scale. I discussed diagnosis, differential and treatment options. I did recommend hospital admission for neurology consult. As neurologist not available at her facility did recommend transfer to a facility with neurology capabilities. The patient states that he is completely asymptomatic at this time. Blood pressure has improved without medication administration. I informed the patient that with his symptoms this could be indicative of a TIA or CVA. Patient understood this. He continued to request to go home. Family is at bedside and agrees with his decision. He is alert and oriented and capable of making his own decisions. He is of sound mind. He is aware of the risks of leaving including permanent disability and . The patient continued to want to go home. I informed him that he needs to follow-up with his primary care doctor in 2-4 days. Return to the emergency room if any new or worsening symptoms or agrees to hospital admission. Patient agreed to this was discharged home in stable condition - Lab Data Result diagrams: 04/09/19 20:31 04/09/19 20:31 Lab Results 04/09/19 04/09/19 04/09/19 Range/Units 20:31 20:31 20:31 WBC 9.4 (3.8-10.6) k/uL RBC 5.35 (4.30-5.90) m/uL Hgb 15.9 (13.0-17.5) gm/dL Hct 46.5 (39.0-53.0) % MCV 86.9 (80.0-100.0) fL MCH 29.7 (25.0-35.0) pg MCHC 34.1 (31.0-37.0) g/dL RDW 12.4 (11.5-15.5) % Plt Count 289 (150-450) k/uL Neutrophils % 59 % Lymphocytes % 25 % Monocytes % 9 % Eosinophils % 4 % Basophils % 1 % Neutrophils # 5.5 (1.3-7.7) k/uL Lymphocytes # 2.3 (1.0-4.8) k/uL Monocytes # 0.8 (0-1.0) k/uL Eosinophils # 0.3 (0-0.7) k/uL Basophils # 0.1 (0-0.2) k/uL PT 10.7 (9.0-12.0) sec INR 1.0 (<1.2) APTT 23.7 (22.0-30.0) sec Sodium 137 (137-145) mmol/L Potassium 3.9 (3.5-5.1) mmol/L Chloride 105 (98-107) mmol/L Carbon Dioxide 22 (22-30) mmol/L Anion Gap 10 mmol/L BUN 10 (9-20) mg/dL Creatinine 0.87 (0.66-1.25) mg/dL Est GFR (CKD-EPI)AfAm >90 (>60 ml/min/1.73 sqM) Est GFR (CKD-EPI)NonAf >90 (>60 ml/min/1.73 sqM) Glucose 198 H (74-99) mg/dL Calcium 9.8 (8.4-10.2) mg/dL Total Bilirubin 0.6 (0.2-1.3) mg/dL AST 24 (17-59) U/L ALT 26 (4-49) U/L Alkaline Phosphatase 98 (38-126) U/L Troponin I (0.000-0.034) ng/mL Total Protein 7.0 (6.3-8.2) g/dL Albumin 4.1 (3.5-5.0) g/dL 04/09/19 Range/Units 20:31 WBC (3.8-10.6) k/uL RBC (4.30-5.90) m/uL Hgb (13.0-17.5) gm/dL Hct (39.0-53.0) % MCV (80.0-100.0) fL MCH (25.0-35.0) pg MCHC (31.0-37.0) g/dL RDW (11.5-15.5) % Plt Count (150-450) k/uL Neutrophils % % Lymphocytes % % Monocytes % % Eosinophils % % Basophils % % Neutrophils # (1.3-7.7) k/uL Lymphocytes # (1.0-4.8) k/uL Monocytes # (0-1.0) k/uL Eosinophils # (0-0.7) k/uL Basophils # (0-0.2) k/uL PT (9.0-12.0) sec INR (<1.2) APTT (22.0-30.0) sec Sodium (137-145) mmol/L Potassium (3.5-5.1) mmol/L Chloride (98-107) mmol/L Carbon Dioxide (22-30) mmol/L Anion Gap mmol/L BUN (9-20) mg/dL Creatinine (0.66-1.25) mg/dL Est GFR (CKD-EPI)AfAm (>60 ml/min/1.73 sqM) Est GFR (CKD-EPI)NonAf (>60 ml/min/1.73 sqM) Glucose (74-99) mg/dL Calcium (8.4-10.2) mg/dL Total Bilirubin (0.2-1.3) mg/dL AST (17-59) U/L ALT (4-49) U/L Alkaline Phosphatase (38-126) U/L Troponin I <0.012 (0.000-0.034) ng/mL Total Protein (6.3-8.2) g/dL Albumin (3.5-5.0) g/dL Disposition Clinical Impression: Migraine Disposition: HOME SELF-CARE Condition: Stable Instructions (If sedation given, give patient instructions): Migraine Headache (ED) Additional Instructions: I recommended hospital admission. Please follow up with primary care doctor in 2-4 days. Return to the emergency room for any new or worsening symptoms Is patient prescribed a controlled substance at d/c from ED?: No Referrals: Cayden Luther DO [Primary Care Provider] - 1-2 days Time of Disposition: 22:13
[2019-04-09 21:13] LABS: Basophils # (A) 0.1 k/uL (0-0.2); Basophils % (A) 1 %; Eosinophils # (A) 0.3 k/uL (0-0.7); Eosinophils % (A) 4 %; HCT 46.5 % (39.0-53.0); HGB 15.9 gm/dL (13.0-17.5); Lymphocytes # (A) 2.3 k/uL (1.0-4.8); Lymphocytes % (A) 25 %; MCH 29.7 pg (25.0-35.0); MCHC 34.1 g/dL (31.0-37.0); MCV 86.9 fL (80.0-100.0); Monocytes # (A) 0.8 k/uL (0-1.0); Monocytes % (A) 9 %; Neutrophils # (A) 5.5 k/uL (1.3-7.7); Neutrophils % (A) 59 %; Platelet Count 289 k/uL (150-450); RBC 5.35 m/uL (4.30-5.90); RDW 12.4 % (11.5-15.5); WBC 9.4 k/uL (3.8-10.6)
[2019-04-09 21:15] LABS: ALT 26 U/L (4-49); AST 24 U/L (17-59); African American GFR (CKD) >90 (>60 ml/min/1.73 sqM); Albumin 4.1 g/dL (3.5-5.0); Alkaline Phosphatase 98 U/L (38-126); Anion Gap 10 mmol/L; Blood Urea Nitrogen 10 mg/dL (9-20); Calcium 9.8 mg/dL (8.4-10.2); Carbon Dioxide 22 mmol/L (22-30); Chloride 105 mmol/L (98-107); Glucose 198 mg/dL (74-99); Non-African American GFR(CKD) >90 (>60 ml/min/1.73 sqM); Potassium 3.9 mmol/L (3.5-5.1); Sodium 137 mmol/L (137-145); Total Bilirubin 0.6 mg/dL (0.2-1.3)
[2019-04-09 21:18] LABS: Partial Thromboplastin Time 23.7 sec (22.0-30.0); Prothrombin Time 10.7 sec (9.0-12.0)
--- NOTE | 2019-04-09 21:18 | XR ---
EXAMINATION TYPE: XR chest 2V DATE OF EXAM: 04/09/2019 COMPARISON: 08/02/2017 HISTORY: Short of breath TECHNIQUE: 2 views FINDINGS: Heart is normal. There is some linear density at the lung bases. There is a left axillary p acemaker. There are no hilar masses. There is no heart failure. Bony thorax is intact. IMPRESSION: There is some atelectasis at the lung bases increased compared to old exam. No heart fail ure.
--- NOTE | 2019-04-09 21:19 | CT ---
EXAMINATION TYPE: CT brain wo con DATE OF EXAM: 04/09/2019 COMPARISON: None HISTORY: Left sided weakness with history of CVA. CT DLP: 1089 mGycm Automated exposure control for dose reduction was used. There is mild cerebral atrophy. There is no mass effect nor midline shift. There is no sign of intrac ranial hemorrhage. Calvarium is intact. IMPRESSION: Mild atrophy. No acute intracranial abnormality.
--- NOTE | 2019-04-09 21:46 | CT ---
EXAMINATION TYPE: CT angio head neck DATE OF EXAM: 04/09/2019 COMPARISON: None HISTORY: Left sided weakness and history of CVA CT DLP: 695.1 mGycm Automated exposure control for dose reduction was used. CONTRAST: Performed with IV Contrast, patient injected with 65 mL of Isovue 370. There are 3-D post processed images. There is normal branching pattern of the great vessels on the aortic arch. There is bilateral arteria l flow in the subclavian arteries. There is arterial flow in the common internal and external carotid arteries bilaterally. There is wide patency of the carotid artery bifurcations. There is arterial fl ow in both vertebral arteries. There is arterial flow in the vertebrobasilar artery system. There is no evidence of carotid or vertebral artery aneurysm or dissection. Vertebral arteries are fairly symmetric. There is arterial flow in the anterior middle and posterior cerebral arteries. There is arterial flow in the vertebrobasilar artery system. There is normal contrast opacification of the venous sinuses. There is bilateral patency of the posterior communicating arteries. I see no evidence of intracranial arterial stenosis. There is no mass effect. There is no sign of aneurysm or neovascularity. IMPRESSION: Normal CT angiogram of the neck. Normal CT angiogram of the brain.
[2019-04-09 22:31] VITALS: BP 103/70; PULSE 78
== END 2019-04-09 22:29 | disposition home or self-care (01) ==
LOC: EC 20:06
DX: G43.909 Migraine, unspecified, not intractable, without status migrainosus (principal); I10 Essential (primary) hypertension; J98.11 Atelectasis; R07.89 Other chest pain; I69.354 Hemiplegia and hemiparesis following cerebral infarction affecting left non-dominant side; I48.91 Unspecified atrial fibrillation; J44.9 Chronic obstructive pulmonary disease, unspecified; N42.9 Disorder of prostate, unspecified; G47.30 Sleep apnea, unspecified; F17.200 Nicotine dependence, unspecified, uncomplicated; Z79.02 Long term (current) use of antithrombotics/antiplatelets; Z79.899 Other long term (current) drug therapy; Z95.0 Presence of cardiac pacemaker; Z95.5 Presence of coronary angioplasty implant and graft; Z99.81 Dependence on supplemental oxygen; Z99.89 Dependence on other enabling machines and devices; Z82.49 Family history of ischemic heart disease and other diseases of the circulatory system
CPT/HCPCS: 99285; 36415; 93005; 80053; 84484; 85025; 85610; 85730; 71046; 70496; 70450; 70498; Q9967

== ENCOUNTER → 2024-06-24 | Outpatient (CLI) | payer MEDICARE ==
[2024-06-24 16:55] LABS: Blood Urea Nitrogen 7.7 mg/dL (9.0-27.0); Carbon Dioxide 29.2 mmol/L (21.6-31.8); Chloride 102 mmol/L (96-109); Potassium 4.5 mmol/L (3.5-5.5); Sodium 141 mmol/L (135-145)
[2024-06-24 17:57] LABS: HCT 52.9 % (39.6-50.0); HGB 17.1 g/dL (13.0-17.0); MCHC 32.3 g/dL (32.0-37.0); MCV 89.8 FL (80.0-97.0); Mean Platelet Volume 10.8 FL (9.5-12.2); NRBC Per 100 WBC 0 X 10*3/uL (0.00-0.01); Platelet Count 263 X 10*3/uL (140-440); RBC 5.89 X 10*6/uL (4.40-5.60); RDW 12.8 % (11.5-14.5); WBC 10.21 X 10*3/uL (4.50-10.00)
== END | disposition home or self-care (01) ==
LOC: LABPAT 10:57
PROVIDERS: ATTEND Internal Medicine
DX: Z01.812 Encounter for preprocedural laboratory examination (principal); I25.10 Atherosclerotic heart disease of native coronary artery without angina pectoris
CPT/HCPCS: 36415; 80051; 82565; 84520; 85027

== ENCOUNTER 2024-06-29 08:47 | Day surgery (SDC) | payer MEDICARE ==
[~2024-06-29 08:47] MED LIST changes: +ALPRAZolam 0.25 MG TAB PO PRN; +ALPRAZolam 0.5 MG TAB PO PRN; +HEPARIN SODIUM,PORCINE (1 ML) 2,500 UNIT in SODIUM CHLORIDE 0.9% 250 ML IRRIGATION PRN; +HEPARIN SODIUM,PORCINE 10,000 UNIT in SODIUM CHLORIDE 0.9% 1,000 ML IRRIGATION PRN; -LACTATED RINGERS 1,000 ML IV SCH; -MORPHINE SULFATE 2 MG/ML SYRINGE IV PRN; +NITROGLYCERIN SL TABS 0.4 MG TAB SUBLINGUAL PRN; -SODIUM CHLORIDE 0.9% 1,000 ML IV SCH
[2024-06-29] MEDS: SODIUM CHLORIDE 0.9% 1,000 ML in EMPTY BAG 1 BAG IV SCH (08:52)
[2024-06-29] MEDS: IV FLUID CONTINUATION 1,000 ML IV ONE (08:53)
[2024-06-29] MEDS: ASPIRIN 325 MG TAB PO STA (09:08)
[2024-06-29] MEDS: CLOPIDOGREL 75 MG TAB PO STA (09:10)
[2024-06-29 09:18] LABS: Glucose,Whole Blood 167 mg/dL (70-110)
[2024-06-29 09:19] VITALS: RESP 16; TEMP 97.7
[2024-06-29] MEDS: SODIUM CHLORIDE 0.9% 1,000 ML IV ONE (09:38)
[2024-06-29] MEDS: HEPARIN SODIUM,PORCINE 10,000 UNIT in SODIUM CHLORIDE 0.9% 1,000 ML IRRIGATION ONE (09:39)
[2024-06-29] MEDS: HEPARIN SODIUM,PORCINE (1 ML) 2,500 UNIT in SODIUM CHLORIDE 0.9% 250 ML IRRIGATION ONE (09:39)
[2024-06-29] MEDS: MIDAZOLAM 2 MG/2 ML VIAL IVP ONE ×2 (09:40→09:55)
[2024-06-29] MEDS: fentaNYL (PF) 50 MCG/ML 2 ML AMP IVP ONE ×2 (09:40→09:55)
[2024-06-29] MEDS: LIDOCAINE 1% INJ 10MG/ML (20 ML MDV) SQ ONE (09:48)
[2024-06-29] MEDS: VERAPAMIL SYRINGE (5 MG/10 ML) INTRAARTER ONE (09:52)
[2024-06-29] MEDS: HEPARIN SODIUM 1,000 UN/ML (10ML VL) IVP ONE (09:57)
[2024-06-29] MEDS: IOPAMIDOL-370 100ML BTL INJ ONE (10:12)
--- NOTE | 2024-06-29 11:28 | P.CARDCATH ---
Description of Procedure: PROCEDURES PERFORMED: Left heart catheterization, bilateral coronary angiography, ultrasound guided arterial access INDICATION: Dyspnea on exertion CONSENT:I have discussed the risks, benefits and alternative therapies for the above-mentioned procedure and for both sedation/analgesia as well as necessary blood product administration, if indicated, as they pertain to this patient. The patient has indicated understanding and acceptance of the risks and procedures discussed. PROCEDURE: After the risks, benefits and alternatives of the above mentioned procedure explained in detail with the patient, informed consent was obtained. Patient was taken to the catheterization lab and prepped and draped in usual fashion. Ultrasound guidance was used to assess for arterial access. 1% lidocaine was used to anesthetize the right radial artery. A 6-Niuean sheath was placed in the right radial artery using modified Seldinger technique and ultrasound guidance. Left coronary angiography was performed with a 5-Niuean JL 3.5 catheter and right coronary angiography was performed with a 6-Niuean AL1 catheter in various views. A 5-Niuean AR2 catheter was inserted into the left ventricle and pressure measurements were obtained. The right radial sheath was removed and a TR band was placed with hemostasis achieved. The patient tara erated the procedure well. Patient was transported back to the post catheterization holding area in stable condition. Conscious Sedation: Patient was monitored under the direct supervision of myself for conscious sedation using Versed and fentanyl for a total duration of 26 minutes HEMODYNAMICS: Aortic: 131/71 LV: 130/5, LVEDP 16 SELECTIVE CORONARY ARTERIOGRAPHY: LEFT MAIN: The left main is a large caliber vessel which bifurcates into the LAD and circumflex. There is no significant stenosis. LEFT ANTERIOR DESCENDING CORONARY ARTERY: LAD is a large caliber vessel which wraps around to the apex. There is diffuse proximal and mid 10 to 20% stenosis. Diagonal 1 has proximal 30% stenosis and diagonal to 50% stenosis, both of which are jailed off by a proximal to mid LAD stent. There is mid to distal 20 to 30% tandem stenoses and otherwise mild luminal irregularities. LEFT CIRCUMFLEX CORONARY ARTERY: Left circumflex is a moderate caliber vessel with mid circumflex 40% stenosis leading to a moderate caliber OM1 and OM 2 branch. RIGHT CORONARY ARTERY: The right coronary artery is a large caliber vessel which gives off a PDA and PLV branch and is the dominant vessel. There is mild diffuse 10 to 20% stenosis. The PLV has a 30 to 40% mid stenosis. FINAL IMPRESSION: 1. CAD as described above including 20 to 30% LAD, 50% diagonal 2, 40% circumflex, 30 to 40% PLV stenosis 2. High normal left sided filling pressures PLAN: 1. Aggressive risk factor modification per most recent ACC/AHA guidelines. 2. Follow-up in the office in 1-2 weeks.
[2024-06-29 16:36] VITALS: BP 126/72; PULSE 70
== END 2024-06-29 14:20 | disposition home or self-care (01) ==
LOC: CATHCVL 08:47
PROVIDERS: ATTEND Internal Medicine
DX: I25.10 Atherosclerotic heart disease of native coronary artery without angina pectoris (principal); I25.5 Ischemic cardiomyopathy; I48.0 Paroxysmal atrial fibrillation; I71.21 Aneurysm of the ascending aorta, without rupture; I10 Essential (primary) hypertension; E78.5 Hyperlipidemia, unspecified; E11.9 Type 2 diabetes mellitus without complications; F17.210 Nicotine dependence, cigarettes, uncomplicated; Z82.3 Family history of stroke; Z79.02 Long term (current) use of antithrombotics/antiplatelets; Z79.51 Long term (current) use of inhaled steroids; Z79.84 Long term (current) use of oral hypoglycemic drugs; Z79.899 Other long term (current) drug therapy
CPT/HCPCS: 99152; 99153; 93458; J2250; J1644 ×3; J2003; J3010; Q9967

== ENCOUNTER 2024-08-28 23:33 | Observation (INO) | payer MEDICARE ==
--- NOTE | 2024-08-28 23:36 | ED ---
Chest Pain HPI - General Stated Complaint: Chest pain Time Seen by Provider: 08/28/24 23:35 Source: RN notes reviewed, old records reviewed Mode of arrival: EMS Limitations: no limitations - History of Present Illness Initial Comments: This is a 63-year-old male to the ER for evaluation of increasingly elevated heart rate at home underlying history of atrial fibrillation has been taking all medications as prescribed denies drugs or alcohol change in medications no recent illness no nausea vomiting diarrhea no fevers does admit to ongoing shortness of breath and wheezing history of COPD. No travel history no sick contacts no other complaint MD Complaint: chest pain, other (Palpitations elevated heart rate and shortness of breath) -: days(s) Onset: during rest, during exertion Pain Location: substernal, left chest Pain Radiation: none Severity: severe Severity scale (1-10): 8 Quality: tightness, heaviness Consistency: constant Improves With: nothing Worsens With: exertion Anginal Symptoms: sense of impending doom Other Symptoms: palpitations Treatments Prior to Arrival: none - Related Data Home Medications Medication Instructions Recorded Confirmed Nitroglycerin Sl Tabs [Nitrostat] 0.4 mg SUBLINGUAL Q5M PRN 08/28/13 08/29/24 Montelukast [Singulair] 10 mg PO DAILY 05/16/15 08/29/24 Albuterol Inhaler [Ventolin Hfa 1 - 2 puff INHALATION RT-QID PRN 04/29/16 08/29/24 Inhaler] Albuterol Nebulized [Ventolin 2.5 mg INHALATION RT-QID 04/29/16 08/29/24 Nebulized] Tamsulosin [Flomax] 0.4 mg PO BID 04/29/16 08/29/24 Atorvastatin [Lipitor] 80 mg PO DAILY 07/30/17 08/29/24 Clopidogrel [Plavix] 75 mg PO DAILY 07/30/17 08/29/24 Isosorbide Mononitrate ER [Imdur] 30 mg PO HS 07/30/17 08/29/24 Budesonide 0.5 mg INHALATION RT-BID 06/27/24 08/29/24 Dapagliflozin Propanediol [Farxiga] 10 mg PO DAILY 06/27/24 08/29/24 Ezetimibe [Zetia] 10 mg PO DAILY 06/27/24 08/29/24 Furosemide [Lasix] 40 mg PO DAILY 06/27/24 08/29/24 ALPRAZolam [Xanax] 0.25 mg PO DAILY PRN 08/29/24 08/29/24 Cholecalciferol [Vitamin D3 (25 25 mcg PO DAILY 08/29/24 08/29/24 Mcg = 1000 Iu)] Fluticasone/Umeclidin/Vilanter 1 puff INHALATION RT-DAILY 08/29/24 08/29/24 [Trelegy Ellipta 200-62.5-25] Glimepiride [Amaryl] 4 mg PO BID 08/29/24 08/29/24 Glucosam/Joaquín-Msm1/C/Saturnino/Bosw 1 tab PO DAILY 08/29/24 08/29/24 [Glucosamine-Chondroitin Tablet] HYDROcodone/APAP 5-325MG [[place]pton 1 tab PO Q6HR PRN 08/29/24 08/29/24 5-325] Isosorbide Mononitrate ER [Imdur] 60 mg PO DAILY 08/29/24 08/29/24 L.acidoph,Paracasei, B.lactis 1 cap PO DAILY 08/29/24 08/29/24 [Probiotic] Metoprolol Tartrate [Lopressor] 200 mg PO BID 08/29/24 08/29/24 Multivitamins, Thera [Multivitamin 1 tab PO DAILY 08/29/24 08/29/24 (formulary)] Pantoprazole [Protonix] 40 mg PO DAILY 08/29/24 08/29/24 Rivaroxaban [Xarelto] 20 mg PO DAILY 08/29/24 08/29/24 Verapamil HCl [Verapamil ER] 240 mg PO DAILY 08/29/24 08/29/24 Zinc Gluconate [Zinc] 50 mg PO DAILY 08/29/24 08/29/24 metFORMIN HCL 1,000 mg PO BID 08/29/24 08/29/24 Allergies Allergy/AdvReac Type Severity Reaction Status Date / Time No Known Allergies Allergy Verified 08/29/24 09:47 Review of Systems ROS Statement: Those systems with pertinent positive or pertinent negative responses have been documented in the HPI. ROS Other: All systems not noted in ROS Statement are negative. EKG Findings - EKG Comments: EKG Findings:: EKG is A-fib with RVR 160 QRS 82 QTc 375. Repeat. EKG is a flutter 100 QRS 93 QTc 408 - EKG Results: EKG shows: tachycardia, atrial fibrillation Past Medical History Past Medical History: Atrial Fibrillation, COPD, CVA/TIA, Diabetes Mellitus, Osteoarthritis (OA), Pneumonia, Prostate Disorder, Sleep Apnea/CPAP/BIPAP Additional Past Medical History / Comment(s): SEE DR DURAN H&P MILD CVA 03/27/16, WEAKNESS LT LEG AND ARM and when tired lt foot drag at times. "SPOT ON LIVER, BEING WATCHED" HX KIDNEY STONE, USEs O2 AT 2L History of Any Multi-Drug Resistant Organisms: None Reported Past Surgical History: Heart Catheterization, Heart Catheterization With Stent, Hernia Repair, Orthopedic Surgery, Pacemaker Additional Past Surgical History / Comment(s): 08/29/13 Cath with 50-60% stenosis L cx treated medically, possible PTCA about 10 yrs ago per pt old medical records. EXC Bilateral Feet BUNIONS. ORIF Right Wrist Surgery - TOOK BONE FROM RT HIP. PTCA W/ 1 STENT X2 IN 12/2015. cryo ablation 05/04/2018 for afib, bronchoscopy umbilical and inguianal hernia Past Anesthesia/Blood Transfusion Reactions: No Reported Reaction Date of Last Stent Placement:: 01/03/16 Type of Cardiac Device: Permanent Pacemaker Device Placement Date:: 07-30-17 Smoking Status: Current every day smoker - Past Family History Mother Family Medical History: Cancer, Diabetes Mellitus Brother(s) Family Medical History: Renal Disease Sister(s) Family Medical History: AFIB Daughter(s) Family Medical History: Cancer Additional Family Medical History / Comment(s): SKIN CANCER Son(s) Family Medical History: No Reported History General Exam General appearance: alert, anxious, in distress Head exam: Present: atraumatic, normocephalic, normal inspection Eye exam: Present: normal appearance, PERRL, EOMI. Absent: scleral icterus, conjunctival injection, periorbital swelling ENT exam: Present: normal exam, mucous membranes moist Neck exam: Present: normal inspection. Absent: tenderness, meningismus, lymphadenopathy Respiratory exam: Present: respiratory distress, wheezes, accessory muscle use, decreased breath sounds, prolonged expiratory. Absent: rales, rhonchi, stridor Cardiovascular Exam: Present: tachycardia, irregular rhythm, normal heart sounds. Absent: systolic murmur, diastolic murmur, rubs, gallop, clicks GI/Abdominal exam: Present: soft, normal bowel sounds. Absent: distended, tenderness, guarding, rebound, rigid Extremities exam: Present: normal inspection, full ROM, normal capillary refill. Absent: tenderness, pedal edema, joint swelling, calf tenderness Back exam: Present: normal inspection Neurological exam: Present: alert, oriented X3, CN II-XII intact Psychiatric exam: Present: normal affect, normal mood Skin exam: Present: warm, dry, intact, normal color. Absent: rash Course Vital Signs 08/28/24 08/28/24 08/28/24 23:34 23:49 23:55 Temperature 98.2 F Pulse Rate 158 H 124 H 99 Respiratory 22 22 18 Rate Blood Pressure 108/68 125/71 116/78 O2 Sat by Pulse 97 92 L 93 L Oximetry 08/29/24 08/29/24 08/29/24 00:39 00:52 01:07 Temperature Pulse Rate 103 H 108 H 112 H Respiratory 22 Rate Blood Pressure 126/75 O2 Sat by Pulse 94 L Oximetry 08/29/24 08/29/24 08/29/24 02:05 04:58 06:08 Temperature Pulse Rate 89 87 101 H Respiratory 18 16 18 Rate Blood Pressure 110/75 114/84 129/71 O2 Sat by Pulse 92 L 93 L 93 L Oximetry 08/29/24 08/29/24 08/29/24 07:16 09:41 10:53 Temperature Pulse Rate 94 96 69 Respiratory 16 16 18 Rate Blood Pressure 112/75 118/88 O2 Sat by Pulse 92 L 95 96 Oximetry 08/29/24 08/29/24 11:08 11:22 Temperature Pulse Rate 69 67 Respiratory Rate Blood Pressure O2 Sat by Pulse Oximetry - Reevaluation(s) Reevaluation #1: 08/29/24 00:38 Records reviewed Reevaluation #2: 08/29/24 00:38 Symptoms improving with Cardizem and metoprolol Patient breathing is mildly improved 08/29/24 01:46 Patient heart rate continues to have elevated this ER stay with significant tachycardia A-fib Reevaluation #3: 08/29/24 00:38 Informed of results questions answered Reevaluation #4: Was pt. sent in by a medical professional or institution (Dr., PA, PASS WORKER, urgent care, hospital, or snf...) When possible be specific @ -no Did you speak to anyone other than the patient for history (EMS, parent, family, police, friend...)? What history was obtained from this source @ -no Did you review nursing and triage notes (agree or disagree)? Why? @ -agree Are old charts reviewed (outside hosp., previous admission, EMS record, old EKG, old radiological studies, urgent care reports/EKG's, snf records)? Report findings @ -yes Differential Diagnosis (chest pain, altered mental status, abdominal pain women, abdominal pain men, vaginal bleeding, weakness, fever, dyspnea, syncope, headache, dizziness, GI bleed, back pain, seizure, CVA, palpatations, mental health, musculoskeletal)? @ -prior EKG interpreted by me (3pts min.). @ -yes X-rays interpreted by me (1pt min.). @ -yes negative for acute disease CT interpreted by me (1pt min.). @ -no U/S interpreted by me (1pt. min.). @ -no What testing was considered but not performed or refused? (CT, X-rays, U/S, labs)? Why? @ -none What meds were considered but not given or refused? Why? @ -none Did you discuss the management of the patient with other professionals (professionals i.e. JORDY Pizano, PASS WORKER, lab, RT, psych nurse, clinical social work therapist, artificial flower maker, teacher, juvenile detention officer, telephonic case manager)? Give summary @ -no Was smoking cessation discussed for >3mins.? @ -no Was critical care preformed (if so, how long)? @ -yes31 Were there social determinants of health that impacted care today? How? (Homelessness, low income, unemployed, alcoholism, drug addiction, transportation, low edu. Level, literacy, decrease access to med. care, alf, rehab)? @ -none Was there de-escalation of care discussed even if they declined (Discuss DNR or withdrawal of care, Hospice)? DNR status @ -no What co-morbidities impacted this encounter? (DM, HTN, Smoking, COPD, CAD, Cancer, CVA, ARF, Chemo, Hep., AIDS, mental health diagnosis, sleep apnea, morbid obesity)? @ -none Was patient admitted / discharged? Hospital course, mention meds given and route, prescriptions, significant lab abnormalities, going to OR and other pertinent info. @ - 63 male will be admitted for arrhythmia atrial fibrillation with RVR chest pain shortness of breath wheezing COPD exacerbation Admitted Undiagnosed new problem with uncertain prognosis? @ -no Drug Therapy requiring intensive monitoring for toxicity (Heparin, Nitro, Insulin, Cardizem)? @ -no Were any procedures done? @ -no Diagnosis/symptom? @ -acute COPD exacerbation Acute, or Chronic, or Acute on Chronic? @ -Acute Uncomplicated (without systemic symptoms) or Complicated (systemic symptoms)? @ -Complicated Side effects of treatment? @ -no Exacerbation, Progression, or Severe Exacerbation? @ -exacerbation Poses a threat to life or bodily function? How? (Chest pain, USA, CT, pneumonia, PE, COPD, DKA, ARF, appy, cholecystitis, CVA, Diverticulitis, Homicidal, Suicidal, threat to staff... and all critical care pts) @ -yes severe respiratory distress Reevaluation #5: Differential Palpitations Ventricular arrhythmias, atrial arrhythmias, myocardial infarction, anemia, thyr otoxicosis, electrolyte imbalance, hypokalemia, pulmonary embolism, pulmonary disease, drugs, alcohol, anxiety, stress.... This is not meant to be an all-inclusive list. - Consultations Consultation #1: Spoke with [facility] who agrees to admit this patient Chest Pain MDM - MDM 63 male will be admitted for arrhythmia atrial fibrillation with RVR chest pain shortness of breath wheezing COPD exacerbation Critical Care Time Critical Care Time: Yes Total Critical Care Time: 31 Disposition Clinical Impression: Chest pain, Atrial fibrillation with RVR, Hypomagnesemia, Acute exacerbation of chronic obstructive pulmonary disease (COPD) Disposition: ADMITTED IP TO THIS HOSP Is patient prescribed a controlled substance at d/c from ED?: No Time of Disposition: 00:30
[2024-08-28 23:38] VITALS: TEMP 98.2
[2024-08-28] MEDS: DILTIAZEM 5 MG/ML 5 ML VIAL IVP STA (23:48)
[2024-08-28] MEDS: METOPROLOL TARTRATE 5 MG/5 ML VIAL IVP STA (23:49)
[2024-08-28 23:52] LABS: Eosinophils # (A) 0.31 10*3/uL (0.04-0.35); HCT 49.3 % (39.6-50.0); HGB 16.4 g/dL (13.0-17.0); Lymphocytes # (A) 2.79 10*3/uL (0.90-5.00); Lymphocytes % (A) 26.9 %; MCH 29.4 pg (27.0-32.0); MCHC 33.3 g/dL (32.0-37.0); MCV 88.5 fL (80.0-97.0); Mean Platelet Volume 9.6 fL (9.5-12.2); Monocytes # (A) 1.15 10*3/uL (0.20-1.00); Monocytes % (A) 11.1 %; Neutrophils % (A) 57.7 %; Platelet Count 216 10*3/uL (140-440); RBC 5.57 10*6/uL (4.40-5.60); RDW 12.5 % (11.5-14.5); WBC 10.38 10*3/uL (4.50-10.00)
[2024-08-28] MEDS: MAGNESIUM SULFATE-D5W PMX 1 GM in DEXTROSE/WATER 1 100ML.BAG IVPB ONE (23:59)
[2024-08-29 00:10] LABS: INR 1.5 (<1.2); Partial Thromboplastin Time 30.6 sec (22.0-30.0); Prothrombin Time 15.6 sec (10.0-12.5)
[2024-08-29 00:15] LABS: ALT 17 U/L (4-49); AST 20 U/L (17-59); African American GFR (CKD) >90 (>60 ml/min/1.73 sqM); Albumin 3.7 g/dL (3.5-5.0); Alkaline Phosphatase 91 U/L (38-126); Anion Gap 11 mmol/L; Blood Urea Nitrogen 10 mg/dL (9-20); Calcium 9.4 mg/dL (8.4-10.2); Carbon Dioxide 27 mmol/L (22-30); Chloride 101 mmol/L (98-107); Glucose 111 mg/dL (74-99); Lipase 159 U/L (23-300); Magnesium 1.5 mg/dL (1.6-2.3); Non-African American GFR(CKD) >90 (>60 ml/min/1.73 sqM); Potassium 3.9 mmol/L (3.5-5.1); Sodium 139 mmol/L (137-145); Total Protein 6.2 g/dL (6.3-8.2)
[2024-08-29 00:22] LABS: NT-Pro-B-Type Natriuretic Pept 118 pg/mL
[2024-08-29] MEDS: DILTIAZEM 125 MG in DEXTROSE 5% IN WATER 100 ML IV SCH (00:32)
[2024-08-29] MEDS ORDERED: ONDANSETRON 4 MG/2 ML VIAL IVP PRN (00:37)
[2024-08-29] MEDS ORDERED: NALOXONE 0.4 MG/ML 1 ML VIAL IV PRN (00:37)
[2024-08-29] MEDS: IPRATROPIUM-ALBUTEROL 3 ML NEB INHALATION STA (00:49)
[2024-08-29] MEDS: SODIUM CHLORIDE 0.9% 1,000 ML IV SCH (01:00)
[2024-08-29] MEDS: MAGNESIUM SULFATE-D5W PMX 1 GM in DEXTROSE/WATER 1 100ML.BAG IVPB ONE (01:34)
[2024-08-29] MEDS: MAGNESIUM OXIDE 400 MG TAB PO STA (01:36)
[2024-08-29] MEDS: DILTIAZEM 5 MG/ML 5 ML VIAL IVP STA ×2 (01:37→01:44)
--- NOTE | 2024-08-29 02:14 | XR ---
EXAM: XR Chest, 1 View CLINICAL HISTORY: ITS.REASON XR Reason: Chest Pain TECHNIQUE: Frontal view of the chest. COMPARISON: CXR April 09, 2019. FINDINGS: Lungs: Atelectasis at the LEFT lung base. Pleural space: Unremarkable. No pneumothorax. Heart: Cardiomegaly. Mediastinum: Unremarkable. Bones/joints: Unremarkable. Tubes, lines and devices: Pacemaker leads. IMPRESSION: No pneumothorax.
[2024-08-29] MEDS: ACETAMINOPHEN TAB 325 MG TAB PO STA (07:32)
[2024-08-29] MEDS: METOPROLOL TARTRATE 50 MG TAB PO SCH (09:43)
[2024-08-29] MEDS: VERAPAMIL SR 240 MG TABLET.ER PO SCH (09:44)
[2024-08-29] MEDS: PANTOPRAZOLE 40 MG/10 ML VIAL IV SCH (09:45)
[2024-08-29] MEDS ORDERED: ALPRAZolam 0.25 MG TAB PO PRN (10:26)
[2024-08-29] MEDS ORDERED: HYDROcodone/APAP 5-325MG 1 EACH TAB PO PRN (10:26)
[2024-08-29] MEDS: BUDESONIDE 0.5 MG/2 ML NEBU INHALATION SCH (10:26)
[2024-08-29] MEDS ORDERED: NITROGLYCERIN SL TABS 0.4 MG TAB SUBLINGUAL PRN (10:29)
[2024-08-29] MEDS: RIVAROXABAN 20 MG TAB PO SCH (10:30)
[2024-08-29] MEDS: metFORMIN 500 MG TAB PO SCH (10:49)
[2024-08-29] MEDS: ATORVASTATIN 40 MG TAB PO SCH (10:49)
[2024-08-29] MEDS: CLOPIDOGREL 75 MG TAB PO SCH (10:49)
[2024-08-29] MEDS: FUROSEMIDE 40 MG TAB PO SCH (10:49)
[2024-08-29] MEDS: TAMSULOSIN 0.4 MG CAP.ER.24H PO SCH (10:49)
[2024-08-29] MEDS: ALBUTEROL NEBULIZED 2.5 MG/3 ML INHALATION SCH (11:07)
[2024-08-29] MEDS: SYMBICORT 160-4.5 MCG INHALER INHALATION SCH (11:07)
[2024-08-29] MEDS: TIOTROPIUM 2.5 MCG INHALER INHALATION SCH (11:08)
[2024-08-29] MEDS: ISOSORBIDE MONONITRATE ER 30 MG TAB.ER.24H PO SCH ×2 (11:13→11:16)
[2024-08-29] MEDS: EZETIMIBE 10 MG TAB PO SCH (11:14)
[2024-08-29] MEDS: MONTELUKAST 10 MG TAB PO SCH (11:14)
[2024-08-29] MEDS: DAPAGLIFLOZIN PROPANEDIOL 10 MG TABLET PO SCH (11:14)
[2024-08-29] MEDS: GLIMEPIRIDE 4 MG TAB PO SCH (11:15)
--- NOTE | 2024-08-29 11:24 | P.CRDCN ---
History of Present Illness Consult date: 08/29/24 Consult reason: atrial fibrillation History of present illness: This is a 63-year-old male patient with past medical history of coronary artery disease status post PCI of the LAD and circumflex in 2013, proximal atrial fibrillation status post ablation in 2018, sick sinus syndrome status post permanent pacemaker, hypertension, hyperlipidemia, CVA, diabetes, asthma, remote history of tobacco use, mild ascending aortic aneurysm measuring 4.3 to 4.4 cm, LVH, known PVC burden 14%. We have been asked to evaluate the patient for atrial fibrillation. Patient states he is feeling better this morning than last night. He states that his heart rate was up to the 180s at home and it is the longest he has been in atrial fibrillation. He states he has been on and off with atrial fibrillation since the fall 2023. He patient is currently in a s inus rhythm. Patient states that he has been taking all of his medications as directed. Patient was started on Cardizem bolus 15 mg x 2 followed by drip at 5 mg and magnesium has been replaced. Dr. Tan discussed in detail recommendations for repeat ablation which will be arranged through the office. Patient is feeling comfortable now and agreeable for discharge home. -EKG: Atrial fibrillation r 100 bpm, #2 atrial fibrillation 160 bpm -Chest x-ray: No pneumothorax. -Laboratory studies: WBC 10.3, hemoglobin 16.4, INR 1.5, creatinine 0.7, electrolytes within normal limits. Magnesium 1.5, troponin negative x 3. proBNP 118. TSH 2.06. -Home cardiac medications: Plavix 75 mg daily, Farxiga 10 mg daily, Zetia 10 mg daily, Lasix 40 mg daily, Imdur 60 mg in the morning to 30 mg at bedtime, Lopressor 200 mg twice daily, Nitrostat as needed, Xarelto 20 mg daily, verapamil 240 mg daily. - Echocardiogram performed in the office on 04/04/2024 revealed EF of 45 to 50%, moderate left ventricular hypertrophy, aortic valve is calcified with mild aortic regurgitation, mild mitral regurgitation, mild to moderate tricuspid regurgitation. Normal PASP. Mild pulmonic regurgitation. - Lexiscan Cardiolite stress test performed in the office on 03/23/2023 revealed nonspecific stress EKG portion secondary to baseline EKG abnormalities. Fixed inferior perfusion defects most consistent with diaphragmatic attenuation artifact. Normal left ventricular EF 60%. Review Of Systems: At the time of my exam: CONSTITUTIONAL: Denies fever or chills. HEENT: Denies blurred vision, vision changes, or eye pain. Denies hemoptysis CARDIOVASCULAR: Denies chest pain. Denies orthopnea. Denies PND. Denies palpitations RESPIRATORY: Denies shortness of breath. GASTROINTESTINAL: Denies abdominal pain. Denies nausea or vomiting. HEMATOLOGIC: Denies bleeding disorders. GENITOURINARY: Denies any blood in urine. SKIN: Denies puritis. Denies rash. Physical examination: Gen: This is 63-year-old male in no acute distress VS: reviewed HEENT: Head is atraumatic, normocephalic. Pupils equal, round. Sclerae is anicteric. NECK: Supple. No JVD. LUNGS: Clear to auscultation. No wheezes or rhonchi. No intercostal retractions. HEART: Regular rate and rhythm. Systolic murmur. ABDOMEN: Soft No tenderness. EXTREMITIES: No pedal edema. No calf tenderness. NEUROLOGICAL: Patient is awake, alert and oriented x3. Assessment: Paroxysmal atrial fibrillation with episodes of RVR, currently in a sinus rhythm History of coronary artery disease with PCI of the LAD and circumflex History of atrial fibrillation ablation in 2019 Sick sinus syndrome status post dual-chamber permanent pacemaker 2018 [employer] device Hypertension Hyperlipidemia History of CVA Diabetes Mild ascending aortic aneurysm Plan: Resume patient's home cardiac medications Patient is cleared for discharge on his current cardiac medications Patient will follow-up in the office with Dr. Hernandez and arrangements will be made for a repeat ablation procedure with Dr. Tan. Thank you kindly for this consultation. Nurse practitioner note has been reviewed, I agree with documented findings and plan of care. Patient was seen and examined. Past Medical History Past Medical History: Atrial Fibrillation, COPD, CVA/TIA, Diabetes Mellitus, Osteoarthritis (OA), Pneumonia, Prostate Disorder, Sleep Apnea/CPAP/BIPAP Additional Past Medical History / Comment(s): SEE DR TAN H&P MILD CVA 03/27/16, WEAKNESS LT LEG AND ARM and when tired lt foot drag at times. "SPOT ON LIVER, BEING WATCHED" HX KIDNEY STONE, USEs O2 AT 2L History of Any Multi-Drug Resistant Organisms: None Reported Past Surgical History: Heart Catheterization, Heart Catheterization With Stent, Hernia Repair, Orthopedic Surgery, Pacemaker Additional Past Surgical History / Comment(s): 08/29/13 Cath with 50-60% stenosis L cx treated medically, possible PTCA about 10 yrs ago per pt old medical records. EXC Bilateral Feet BUNIONS. ORIF Right Wrist Surgery - TOOK BONE FROM RT HIP. PTCA W/ 1 STENT X2 IN 12/2015. cryo ablation 05/04/2018 for afib, bronchoscopy umbilical and inguianal hernia Past Anesthesia/Blood Transfusion Reactions: No Reported Reaction Date of Last Stent Placement:: 01/03/16 Type of Cardiac Device: Permanent Pacemaker Device Placement Date:: 07-30-17 Smoking Status: Current every day smoker - Past Family History Mother Family Medical History: Cancer, Diabetes Mellitus Brother(s) Family Medical History: Renal Disease Sister(s) Family Medical History: AFIB Daughter(s) Family Medical History: Cancer Additional Family Medical History / Comment(s): SKIN CANCER Son(s) Family Medical History: No Reported History Medications and Allergies Home Medications Medication Instructions Recorded Confirmed Type Nitroglycerin Sl Tabs [Nitrostat] 0.4 mg SUBLINGUAL Q5M PRN 08/28/13 08/29/24 History Montelukast [Singulair] 10 mg PO DAILY 05/16/15 08/29/24 History Albuterol Inhaler [Ventolin Hfa 1 - 2 puff INHALATION RT-QID PRN 04/29/16 08/29/24 History Inhaler] Albuterol Nebulized [Ventolin 2.5 mg INHALATION RT-QID 04/29/16 08/29/24 History Nebulized] Tamsulosin [Flomax] 0.4 mg PO BID 04/29/16 08/29/24 History Atorvastatin [Lipitor] 80 mg PO DAILY 07/30/17 08/29/24 History Clopidogrel [Plavix] 75 mg PO DAILY 07/30/17 08/29/24 History Isosorbide Mononitrate ER [Imdur] 30 mg PO HS 07/30/17 08/29/24 History Budesonide 0.5 mg INHALATION RT-BID 06/27/24 08/29/24 History Dapagliflozin Propanediol [Farxiga] 10 mg PO DAILY 06/27/24 08/29/24 History Ezetimibe [Zetia] 10 mg PO DAILY 06/27/24 08/29/24 History Furosemide [Lasix] 40 mg PO DAILY 06/27/24 08/29/24 History ALPRAZolam [Xanax] 0.25 mg PO DAILY PRN 08/29/24 08/29/24 History Cholecalciferol [Vitamin D3 (25 25 mcg PO DAILY 08/29/24 08/29/24 History Mcg = 1000 Iu)] Fluticasone/Umeclidin/Vilanter 1 puff INHALATION RT-DAILY 08/29/24 08/29/24 History [Trelegy Ellipta 200-62.5-25] Glimepiride [Amaryl] 4 mg PO BID 08/29/24 08/29/24 History Glucosam/Joaquín-Msm1/C/[place]/Bosw 1 tab PO DAILY 08/29/24 08/29/24 History [Glucosamine-Chondroitin Tablet] HYDROcodone/APAP 5-325MG [[place] 1 tab PO Q6HR PRN 08/29/24 08/29/24 History 5-325] Isosorbide Mononitrate ER [Imdur] 60 mg PO DAILY 08/29/24 08/29/24 History L.acidoph,Paracasei, B.lactis 1 cap PO DAILY 08/29/24 08/29/24 History [Probiotic] Metoprolol Tartrate [Lopressor] 200 mg PO BID 08/29/24 08/29/24 History Multivitamins, Thera [Multivitamin 1 tab PO DAILY 08/29/24 08/29/24 History (formulary)] Pantoprazole [Protonix] 40 mg PO DAILY 08/29/24 08/29/24 History Rivaroxaban [Xarelto] 20 mg PO DAILY 08/29/24 08/29/24 History Verapamil HCl [Verapamil ER] 240 mg PO DAILY 08/29/24 08/29/24 History Zinc Gluconate [Zinc] 50 mg PO DAILY 08/29/24 08/29/24 History metFORMIN HCL 1,000 mg PO BID 08/29/24 08/29/24 History Allergies Allergy/AdvReac Type Severity Reaction Status Date / Time No Known Allergies Allergy Verified 08/29/24 09:47 Physical Exam Vitals: Vital Signs Temp Pulse Resp BP Pulse Ox 08/29/24 07:16 94 16 112/75 92 L 08/29/24 06:08 101 H 18 129/71 93 L 08/29/24 04:58 87 16 114/84 93 L 08/29/24 02:05 89 18 110/75 92 L 08/29/24 01:07 112 H 08/29/24 00:52 108 H 08/29/24 00:39 103 H 22 126/75 94 L 08/28/24 23:55 99 18 116/78 93 L 08/28/24 23:49 124 H 22 125/71 92 L 08/28/24 23:34 98.2 F 158 H 22 108/68 97 Intake and Output 08/28/24 08/29/24 08/29/24 22:59 06:59 14:59 Other: Weight 97.976 kg Results 08/28/24 23:37 08/28/24 23:37 Cardiac Enzymes 08/28/24 08/28/24 08/29/24 Range/Units 23:37 23:37 03:13 AST 20 (17-59) U/L Troponin I 0.012 0.023 (0.000-0.034) ng/mL Coagulation 08/28/24 Range/Units 23:37 PT 15.6 H (10.0-12.5) sec APTT 30.6 H (22.0-30.0) sec CBC 08/28/24 Range/Units 23:37 WBC 10.38 H (4.50-10.00) 10*3/uL RBC 5.57 (4.40-5.60) 10*6/uL Hgb 16.4 (13.0-17.0) g/dL Hct 49.3 (39.6-50.0) % Plt Count 216 (140-440) 10*3/uL Comprehensive Metabolic Panel 08/28/24 Range/Units 23:37 Sodium 139 (137-145) mmol/L Potassium 3.9 (3.5-5.1) mmol/L Chloride 101 (98-107) mmol/L Carbon Dioxide 27 (22-30) mmol/L BUN 10 (9-20) mg/dL Creatinine 0.70 (0.66-1.25) mg/dL Glucose 111 H (74-99) mg/dL Calcium 9.4 (8.4-10.2) mg/dL AST 20 (17-59) U/L ALT 17 (4-49) U/L Alkaline Phosphatase 91 (38-126) U/L Total Protein 6.2 L (6.3-8.2) g/dL Albumin 3.7 (3.5-5.0) g/dL Current Medications Generic Name Dose Route Start Last Admin Trade Name Freq PRN Reason Stop Dose Admin Diltiazem HCl 125 mg/ Dextrose 125 mls @ 5 mls/hr 08/28/24 23:45 08/29/24 00:32 /Water IV 5 mg/hr .Q24H ABHI 5 mls/hr Administration Protocol 5 MG/HR Sodium Chloride 1,000 mls @ 20 mls/hr 08/29/24 00:45 08/29/24 01:00 Saline 0.9% IV 20 mls/hr .Q24H ABHI Administration Naloxone HCl 0.2 mg 08/29/24 00:37 Naloxone 0.4 Mg/Ml 1 Ml Vial IV Q2M PRN Opioid Reversal Ondansetron HCl 4 mg 08/29/24 00:37 Ondansetron 4 Mg/2 Ml Vial IVP Q8HR PRN Nausea And Vomiting Pantoprazole Sodium 40 mg 08/29/24 09:00 Pantoprazole 40 Mg/10 Ml Vial IV DAILY ABHI Intake and Output 08/28/24 08/29/24 08/29/24 22:59 06:59 14:59 Other: Weight 97.976 kg 08/28/24 23:37 08/28/24 23:37
[2024-08-29 11:49] VITALS: BP 134/90; PULSE 70; RESP 16
[2024-08-29] MEDS ORDERED: RIVAROXABAN 20 MG TAB PO SCH (17:30)
--- NOTE | 2024-08-29 22:59 | P.HPIM ---
History of Present Illness H&P Date: 08/29/24 Chief Complaint: Increase heart rate Very pleasant 63-year-old patient who follows Dr. Kulwinder Corral. Patient is accompanied by his in the ER. Chronic medical conditions include coronary arteries with stent around 7 to 9 years ago, currently follows with Dr. Hernandez the order manager. COPD, currently smoking, diabetes, osteoarthritis, BPH, obstructive sleep apnea does not use CPAP, stroke in 2016 with mild weakness on the left side. Home oxygen 2 L. Has a permanent pacemaker. He has known atrial fibrillation previously. Has undergone ablation in 2019. Last night patient found his heart rate to be racing. Became short of breath perspiring. [place] really hot dizzy lightheaded. Heart rate was up to 180s. Was put on a Cardizem drip. Patient then converted to sinus rhythm. Feeling much better this morning. Review of systems: GEN.: Tired EYES: None HEENT: None NECK: None RESPIRATORY: Baseline some short of breath CARDIOVASCULAR: As above GASTROINTESTINAL: None GENITOURINARY: None MUSCULOSKELETAL: Some joint pains LYMPHATICS: None HEMATOLOGICAL: None PSYCHIATRY: None NEUROLOGICAL: Chronic left-sided weakness from prior stroke Social history: . Retired [employer]. Started smoking in 1980 now smoking anywhere from [place] to half a pack a day. No alcohol. Physical examination: VITAL SIGNS: 98.2, 158, 22, 108 x 68, 97% on 4 L on presentation GENERAL: BMI 31.9,. Reclining bed awake not in distress EYES: Pupils equal. Conjunctiva broderick l. HEENT: External appearance of nose and ears normal, oral cavity grossly normal. NECK: JVD not raised; masses not palpable. HEART: First and second heart sounds are normal; no edema. LUNGS: Respiratory rate normal; decreased breath sound mild wheezing. ABDOMEN: Soft, nontender, liver spleen not palpable, no masses palpable. PSYCH: Alert and oriented x3; mood and affect broderick l. MUSCULOSKELETAL:No Clubbing/cyanosis;muscles-grossly intact. OA NEUROLOGICAL: [Cranial nerves grossly intact; no facial asymmetry, mild left- sided weakness LYMPHATICS: No lymph nodes palpable in the axilla and neck INVESTIGATIONS, reviewed in the clinical context: August 28, 2024: White count 10.3 hemoglobin 16.4 platelets 216 sodium 139 potassium 3.9 creatinine 0.7 Troponin I: 0.012, 0.023, 0.026 TSH 2.0 EKG tracing personally reviewed by me-atrial flutter at tachycardia. Some ST-T wave changes. Assessment and plan: - Paroxysmal recurrent atrial fibrillation now presented with rapid ventricular rate. Symptomatic. Was started on IV Cardizem drip overnight. Converted to sinus rhythm. Prior history of fibrillation. Seen by Dr. Montrell Duran from cardiology. For repeat ablation. Lopressor. Verapamil. Xarelto - COPD in a current smoker Trekadigy Ellipta. Ventolin as needed - Chronic nicotine dependence cigarette smoker Patient counseled against the same - BPH Flomax - Diabetes mellitus type 2 on oral hypoglycemic Amaryl. Farxiga. Metformin. Budesonide - GERD Protonix - Essential hypertension Lopressor. Verapamil ER - Obstructive sleep apnea, patient does not tolerate CPAP - CAD with prior history of stent about 79 years ago Follows with order manager Dr. Hernandez Lipitor. Farxiga. Plavix. Imdur ER. - Permanent pacemaker - Primary osteoarthritis multiple joints Pain medication as needed - Chronic hypoxic respiratory failure from underlying COPD 2 L of oxygen - Mild left hemiparesis from prior stroke - Full code Cardiology was consulted. Discussed with the patient and . Past Medical History Past Medical History: Atrial Fibrillation, COPD, CVA/TIA, Diabetes Mellitus, Osteoarthritis (OA), Pneumonia, Prostate Disorder, Sleep Apnea/CPAP/BIPAP Additional Past Medical History / Comment(s): SEE DR DURAN H&P MILD CVA 03/27/16, WEAKNESS LT LEG AND ARM and when tired lt foot drag at times. "SPOT ON LIVER, BEING WATCHED" HX KIDNEY STONE, USEs O2 AT 2L History of Any Multi-Drug Resistant Organisms: None Reported Past Surgical History: Heart Catheterization, Heart Catheterization With Stent, Hernia Repair, Orthopedic Surgery, Pacemaker Additional Past Surgical History / Comment(s): 08/29/13 Cath with 50-60% stenosis L cx treated medically, possible PTCA about 10 yrs ago per pt old medical records. EXC Bilateral Feet BUNIONS. ORIF Right Wrist Surgery - TOOK BONE FROM RT HIP. PTCA W/ 1 STENT X2 IN 12/2015. cryo ablation 05/04/2018 for afib, bronchoscopy umbilical and inguianal hernia Past Anesthesia/Blood Transfusion Reactions: No Reported Reaction Date of Last Stent Placement:: 01/03/16 Type of Cardiac Device: Permanent Pacemaker Device Placement Date:: 07-30-17 Smoking Status: Current every day smoker - Past Family History Mother Family Medical History: Cancer, Diabetes Mellitus Brother(s) Family Medical History: Renal Disease Sister(s) Family Medical History: AFIB Daughter(s) Family Medical History: Cancer Additional Family Medical History / Comment(s): SKIN CANCER Son(s) Family Medical History: No Reported History Medications and Allergies Home Medications Medication Instructions Recorded Confirmed Type Nitroglycerin Sl Tabs [Nitrostat] 0.4 mg SUBLINGUAL Q5M PRN 08/28/13 08/29/24 History Montelukast [Singulair] 10 mg PO DAILY 05/16/15 08/29/24 History Albuterol Inhaler [Ventolin Hfa 1 - 2 puff INHALATION RT-QID PRN 04/29/16 08/29/24 History Inhaler] Albuterol Nebulized [Ventolin 2.5 mg INHALATION RT-QID 04/29/16 08/29/24 History Nebulized] Tamsulosin [Flomax] 0.4 mg PO BID 04/29/16 08/29/24 History Atorvastatin [Lipitor] 80 mg PO DAILY 07/30/17 08/29/24 History Clopidogrel [Plavix] 75 mg PO DAILY 07/30/17 08/29/24 History Isosorbide Mononitrate ER [Imdur] 30 mg PO HS 07/30/17 08/29/24 History Budesonide 0.5 mg INHALATION RT-BID 06/27/24 08/29/24 History Dapagliflozin Propanediol [Farxiga] 10 mg PO DAILY 06/27/24 08/29/24 History Ezetimibe [Zetia] 10 mg PO DAILY 06/27/24 08/29/24 History Furosemide [Lasix] 40 mg PO DAILY 06/27/24 08/29/24 History ALPRAZolam [Xanax] 0.25 mg PO DAILY PRN 08/29/24 08/29/24 History Cholecalciferol [Vitamin D3 (25 25 mcg PO DAILY 08/29/24 08/29/24 History Mcg = 1000 Iu)] Fluticasone/Umeclidin/Vilanter 1 puff INHALATION RT-DAILY 08/29/24 08/29/24 History [Trelegy Ellipta 200-62.5-25] Glimepiride [Amaryl] 4 mg PO BID 08/29/24 08/29/24 History Glucosam/Joaquín-Msm1/C/[place]/Bosw 1 tab PO DAILY 08/29/24 08/29/24 History [Glucosamine-Chondroitin Tablet] HYDROcodone/APAP 5-325MG [[place] 1 tab PO Q6HR PRN 08/29/24 08/29/24 History 5-325] Isosorbide Mononitrate ER [Imdur] 60 mg PO DAILY 08/29/24 08/29/24 History L.acidoph,Paracasei, B.lactis 1 cap PO DAILY 08/29/24 08/29/24 History [Probiotic] Metoprolol Tartrate [Lopressor] 200 mg PO BID 08/29/24 08/29/24 History Multivitamins, Thera [Multivitamin 1 tab PO DAILY 08/29/24 08/29/24 History (formulary)] Pantoprazole [Protonix] 40 mg PO DAILY 08/29/24 08/29/24 History Rivaroxaban [Xarelto] 20 mg PO DAILY 08/29/24 08/29/24 History Verapamil HCl [Verapamil ER] 240 mg PO DAILY 08/29/24 08/29/24 History Zinc Gluconate [Zinc] 50 mg PO DAILY 08/29/24 08/29/24 History metFORMIN HCL 1,000 mg PO BID 08/29/24 08/29/24 History Allergies Allergy/AdvReac Type Severity Reaction Status Date / Time No Known Allergies Allergy Verified 08/29/24 09:47 Physical Exam Vitals: Vital Signs Temp Pulse Resp BP Pulse Ox 08/29/24 09:41 96 16 118/88 95 08/29/24 07:16 94 16 112/75 92 L 08/29/24 06:08 101 H 18 129/71 93 L 08/29/24 04:58 87 16 114/84 93 L 08/29/24 02:05 89 18 110/75 92 L 08/29/24 01:07 112 H 08/29/24 00:52 108 H 08/29/24 00:39 103 H 22 126/75 94 L 08/28/24 23:55 99 18 116/78 93 L 08/28/24 23:49 124 H 22 125/71 92 L 08/28/24 23:34 98.2 F 158 H 22 108/68 97 Intake and Output 08/28/24 08/29/24 08/29/24 22:59 06:59 14:59 Other: Weight 97.976 kg Results CBC & Chem 7: 08/28/24 23:37 08/28/24 23:37 Labs: Abnormal Lab Results - Last 24 Hours (Table) 08/28/24 08/28/24 08/28/24 Range/Units 23:37 23:37 23:37 WBC 10.38 H (4.50-10.00) 10*3/uL Monocytes # 1.15 H (0.20-1.00) 10*3/uL PT 15.6 H (10.0-12.5) sec INR 1.5 H (<1.2) APTT 30.6 H (22.0-30.0) sec Glucose 111 H (74-99) mg/dL Magnesium 1.5 L (1.6-2.3) mg/dL Total Protein 6.2 L (6.3-8.2) g/dL
--- NOTE | 2024-08-29 23:01 | P.DS ---
Providers Date of admission: 08/29/24 00:38 Expected date of discharge: 08/29/24 Attending physician: Tr Hannon Consults: 08/29/24 00:37 Consult Physician Routine Consulting Provider: Elise Jauregui Consult Reason/Comments: afib Do you want consulting provider notified?: Yes Primary care physician: Kulwinder [facility] Course: Chief Complaint: Increase heart rate Very pleasant 63-year-old patient who follows Dr. Kulwinder Corral. Patient is accompanied by his in the ER. Chronic medical conditions include coronary arteries with stent around 7 to 9 years ago, currently follows with Dr. Hernandez the security officer. COPD, currently smoking, diabetes, osteoarthritis, BPH, obstructive sleep apnea does not use CPAP, stroke in 2016 with mild weakness on the left side. Home oxygen 2 L. Has a permanent pacemaker. He has known atrial fibrillation previously. Has undergone ablation in 2019. Last night patient found his heart rate to be racing. Became short of breath perspiring. [place] really hot dizzy lightheaded. Heart rate was up to 180s. Was put on a Cardizem drip. Patient then converted to sinus rhythm. Feeling much better this morning. Patient reverted to sinus rhythm. Seen by Dr. Montrell Tan from cardiology. No current change in medications. Will make arrangements for outpatient ablation. Social history: . Retired [employer]. Started smoking in 1980 now smoking anywhere from [place] to half a pack a day. No alcohol. Physical examination: VITAL SIGNS: 98.2, 158, 22, 108 x 68, 97% on 4 L on presentation GENERAL: BMI 31.9,. Reclining bed awake not in distress EYES: Pupils equal. Conjunctiva broderick l. HEENT: External appearance of nose and ears normal, oral cavity grossly normal. NECK: JVD not raised; masses not palpable. HEART: First and second heart sounds are normal; no edema. LUNGS: Respiratory rate normal; decreased breath sound mild wheezing. ABDOMEN: Soft, nontender, liver spleen not palpable, no masses palpable. PSYCH: Alert and oriented x3; mood and affect broderick l. MUSCULOSKELETAL:No Clubbing/cyanosis;muscles-grossly intact. OA NEUROLOGICAL: [Cranial nerves grossly intact; no facial asymmetry, mild left- sided weakness LYMPHATICS: No lymph nodes palpable in the axilla and neck INVESTIGATIONS, reviewed in the clinical context: August 28, 2024: White count 10.3 hemoglobin 16.4 platelets 216 sodium 139 potassium 3.9 creatinine 0.7 Troponin I: 0.012, 0.023, 0.026 TSH 2.0 EKG tracing personally reviewed by me-atrial flutter at tachycardia. Some ST-T wave changes. Assessment and plan: - Paroxysmal recurrent atrial fibrillation now presented with rapid ventricular rate. Symptomatic. Was started on IV Cardizem drip overnight. Converted to sinus rhythm. Prior history of fibrillation. Seen by Dr. Montrell Tan from cardiology. For repeat ablation. Outpatient Lopressor. Verapamil. Xarelto - COPD in a current smoker Trelegy Ellipta. Ventolin as needed - Chronic nicotine dependence cigarette smoker Patient counseled against the same - BPH Flomax - Diabetes mellitus type 2 on oral hypoglycemic Amaryl. Farxiga. Metformin. Budesonide - GERD Protonix - Essential hypertension Lopressor. Verapamil ER - Obstructive sleep apnea, patient does not tolerate CPAP - CAD with prior history of stent about 79 years ago Follows with security officer Dr. Hernandez Lipitor. Farxiga. Plavix. Imdur ER. - Permanent pacemaker - Primary osteoarthritis multiple joints Pain medication as needed - Chronic hypoxic respiratory failure from underlying COPD 2 L of oxygen - Mild left hemiparesis from prior stroke - Full code Disposition: Home Past Medical History Past Medical History: Atrial Fibrillation, COPD, CVA/TIA, Diabetes Mellitus, Osteoarthritis (OA), Pneumonia, Prostate Disorder, Sleep Apnea/CPAP/BIPAP Additional Past Medical History / Comment(s): SEE DR TAN H&P MILD CVA 03/27/16, WEAKNESS LT LEG AND ARM and when tired lt foot drag at times. "SPOT ON LIVER, BEING WATCHED" HX KIDNEY STONE, USEs O2 AT 2L History of Any Multi-Drug Resistant Organisms: None Reported Past Surgical History: Heart Catheterization, Heart Catheterization With Stent, Hernia Repair, Orthopedic Surgery, Pacemaker Additional Past Surgical History / Comment(s): 08/29/13 Cath with 50-60% stenosis L cx treated medically, possible PTCA about 10 yrs ago per pt old medical records. EXC Bilateral Feet BUNIONS. ORIF Right Wrist Surgery - TOOK BONE FROM RT HIP. PTCA W/ 1 STENT X2 IN 12/2015. cryo ablation 05/04/2018 for afib, bronchoscopy umbilical and inguianal hernia Past Anesthesia/Blood Transfusion Reactions: No Reported Reaction Date of Last Stent Placement:: 01/03/16 Type of Cardiac Device: Permanent Pacemaker Device Placement Date:: 07-30-17 Smoking Status: Current every day smoker Plan - Discharge Summary New Discharge Prescriptions: Continue Nitroglycerin Sl Tabs [Nitrostat] 0.4 mg SUBLINGUAL Q5M PRN PRN Reason: Chest Pain Montelukast [Singulair] 10 mg PO DAILY Albuterol Nebulized [Ventolin Nebulized] 2.5 mg INHALATION RT-QID Tamsulosin [Flomax] 0.4 mg PO BID Albuterol Inhaler [Ventolin Hfa Inhaler] 1 - 2 puff INHALATION RT-QID PRN PRN Reason: Shortness Of Breath Atorvastatin [Lipitor] 80 mg PO DAILY Clopidogrel [Plavix] 75 mg PO DAILY Isosorbide Mononitrate ER [Imdur] 30 mg PO HS Ezetimibe [Zetia] 10 mg PO DAILY Furosemide [Lasix] 40 mg PO DAILY Rivaroxaban [Xarelto] 20 mg PO DAILY Verapamil HCl [Verapamil ER] 240 mg PO DAILY Fluticasone/Umeclidin/Vilanter [Trelegy Ellipta 200-62.5-25] 1 puff INHALATION RT-DAILY Isosorbide Mononitrate ER [Imdur] 60 mg PO DAILY Glimepiride [Amaryl] 4 mg PO BID metFORMIN HCL 1,000 mg PO BID HYDROcodone/APAP 5-325MG [[place] 5-325] 1 tab PO Q6HR PRN PRN Reason: Pain Glucosam/Joaquín-Msm1/C/Saturnino/Bosw [Glucosamine-Chondroitin Tablet] 1 tab PO DAILY Cholecalciferol [Vitamin D3 (25 Mcg = 1000 Iu)] 25 mcg PO DAILY Pantoprazole [Protonix] 40 mg PO DAILY Budesonide 0.5 mg INHALATION RT-BID Dapagliflozin Propanediol [Farxiga] 10 mg PO DAILY Metoprolol Tartrate [Lopressor] 200 mg PO BID ALPRAZolam [Xanax] 0.25 mg PO DAILY PRN PRN Reason: Anxiety Multivitamins, Thera [Multivitamin (formulary)] 1 tab PO DAILY Zinc Gluconate [Zinc] 50 mg PO DAILY L.acidoph,Paracasei, B.lactis [Probiotic] 1 cap PO DAILY Discharge Medication List Nitroglycerin Sl Tabs [Nitrostat] 0.4 mg SUBLINGUAL Q5M PRN 08/28/13 [History] Montelukast [Singulair] 10 mg PO DAILY 05/16/15 [History] Albuterol Inhaler [Ventolin Hfa Inhaler] 1 - 2 puff INHALATION RT-QID PRN 04/29/16 [History] Albuterol Nebulized [Ventolin Nebulized] 2.5 mg INHALATION RT-QID 04/29/16 [History] Tamsulosin [Flomax] 0.4 mg PO BID 04/29/16 [History] Atorvastatin [Lipitor] 80 mg PO DAILY 07/30/17 [History] Clopidogrel [Plavix] 75 mg PO DAILY 07/30/17 [History] Isosorbide Mononitrate ER [Imdur] 30 mg PO HS 07/30/17 [History] Budesonide 0.5 mg INHALATION RT-BID 06/27/24 [History] Dapagliflozin Propanediol [Farxiga] 10 mg PO DAILY 06/27/24 [History] Ezetimibe [Zetia] 10 mg PO DAILY 06/27/24 [History] Furosemide [Lasix] 40 mg PO DAILY 06/27/24 [History] ALPRAZolam [Xanax] 0.25 mg PO DAILY PRN 08/29/24 [History] Cholecalciferol [Vitamin D3 (25 Mcg = 1000 Iu)] 25 mcg PO DAILY 08/29/24 [History] Fluticasone/Umeclidin/Vilanter [Trelegy Ellipta 200-62.5-25] 1 puff INHALATION RT-DAILY 08/29/24 [History] Glimepiride [Amaryl] 4 mg PO BID 08/29/24 [History] Glucosam/Joaquín-Msm1/C/Saturnino/Bosw [Glucosamine-Chondroitin Tablet] 1 tab PO DAILY 08/29/24 [History] HYDROcodone/APAP 5-325MG [[place] 5-325] 1 tab PO Q6HR PRN 08/29/24 [History] Isosorbide Mononitrate ER [Imdur] 60 mg PO DAILY 08/29/24 [History] L.acidoph,Paracasei, B.lactis [Probiotic] 1 cap PO DAILY 08/29/24 [History] Metoprolol Tartrate [Lopressor] 200 mg PO BID 08/29/24 [History] Multivitamins, Thera [Multivitamin (formulary)] 1 tab PO DAILY 08/29/24 [History] Pantoprazole [Protonix] 40 mg PO DAILY 08/29/24 [History] Rivaroxaban [Xarelto] 20 mg PO DAILY 08/29/24 [History] Verapamil HCl [Verapamil ER] 240 mg PO DAILY 08/29/24 [History] Zinc Gluconate [Zinc] 50 mg PO DAILY 08/29/24 [History] metFORMIN HCL 1,000 mg PO BID 08/29/24 [History] Follow up Appointment(s)/Referral(s): Montrell Tan MD [STAFF PHYSICIAN] - 10 Days Kulwinder Corral MD [Primary Care Provider] - 1-2 days Discharge Disposition: HOME SELF-CARE
[2024-08-30] MEDS ORDERED: MULTIVITAMINS, THERA 1 EACH TAB PO SCH (09:00)
[2024-08-30] MEDS ORDERED: ZINC SULFATE 220 MG CAP PO SCH (09:00)
[2024-08-30] MEDS ORDERED: CHOLECALCIFEROL 25 MCG (1000 IU) TABLET PO SCH (09:00)
[2024-08-30] MEDS ORDERED: LACTOBACILLUS ACIDOPHILUS/PECT 1 EACH CAPSULE PO SCH (09:00)
== END 2024-08-29 12:06 | disposition home or self-care (01) ==
LOC: EC 23:33 → 3SCARD 08-29 00:38 → INTOOBSV 08-29 00:38
PROVIDERS: ADMIT Hospitalist; ATTEND Hospitalist
DX: J44.1 Chronic obstructive pulmonary disease with (acute) exacerbation (principal); J96.11 Chronic respiratory failure with hypoxia; E83.42 Hypomagnesemia; I49.5 Sick sinus syndrome; I25.10 Atherosclerotic heart disease of native coronary artery without angina pectoris; I10 Essential (primary) hypertension; I69.354 Hemiplegia and hemiparesis following cerebral infarction affecting left non-dominant side; I48.0 Paroxysmal atrial fibrillation; E11.9 Type 2 diabetes mellitus without complications; E78.5 Hyperlipidemia, unspecified; F17.210 Nicotine dependence, cigarettes, uncomplicated; G47.33 Obstructive sleep apnea (adult) (pediatric); I71.21 Aneurysm of the ascending aorta, without rupture; K21.9 Gastro-esophageal reflux disease without esophagitis; M15.9 Polyosteoarthritis, unspecified; N40.0 Benign prostatic hyperplasia without lower urinary tract symptoms; Z79.01 Long term (current) use of anticoagulants; Z79.02 Long term (current) use of antithrombotics/antiplatelets; Z79.84 Long term (current) use of oral hypoglycemic drugs; Z79.899 Other long term (current) drug therapy; Z95.0 Presence of cardiac pacemaker; Z95.5 Presence of coronary angioplasty implant and graft
CPT/HCPCS: 96376; 96368; 96365; 96366; 96367; 96375 ×2; 99291; 36415; 94640 ×2; 93005; 83880; 80053; 84443; 83690; 83735; 84484 ×2; 85025; 85610; 85730; 71045; G0378; J3475 ×2; J2470

== ENCOUNTER → 2024-11-10 | Outpatient (CLI) | payer MEDICARE ==
[2024-11-10 19:16] LABS: HCT 52.1 % (39.6-50.0); HGB 16.4 g/dL (13.0-17.0); MCH 28.2 pg (27.0-32.0); MCHC 31.5 g/dL (32.0-37.0); MCV 89.7 FL (80.0-97.0); NRBC Per 100 WBC 0 X 10*3/uL (0.00-0.01); Platelet Count 281 X 10*3/uL (140-440); RBC 5.81 X 10*6/uL (4.40-5.60); RDW 12.9 % (11.5-14.5); WBC 10.73 X 10*3/uL (4.50-10.00)
[2024-11-10 19:20] LABS: Anion Gap 9.10 mmol/L (4.00-12.00); BUN/Creat Ratio 9.78 Ratio (12.00-20.00); Blood Urea Nitrogen 8.8 mg/dL (9.0-27.0); Calcium 9.3 mg/dL (8.7-10.3); Carbon Dioxide 32.9 mmol/L (21.6-31.8); Chloride 100 mmol/L (96-109); Glucose 131 mg/dL (70-110); Potassium 4.2 mmol/L (3.5-5.5); Sodium 142 mmol/L (135-145)
== END | disposition home or self-care (01) ==
LOC: LABWHC1 14:20
PROVIDERS: ATTEND Internal Medicine
DX: Z01.812 Encounter for preprocedural laboratory examination (principal); I48.0 Paroxysmal atrial fibrillation
CPT/HCPCS: 36415; 80048; 85027

== ENCOUNTER 2024-11-14 09:29 | Day surgery (SDC) | payer MEDICARE ==
[2024-11-10 12:53] VITALS: BMI 29.0
[2024-11-14] MEDS: IV FLUID CONTINUATION 1,000 ML IV ONE (10:30)
[2024-11-14 10:32] LABS: Glucose,Whole Blood 121 mg/dL (70-110)
[2024-11-14] MEDS: RIVAROXABAN 20 MG TAB PO STA (10:32)
[2024-11-14] MEDS ORDERED: fentaNYL (PF) 50 MCG/ML 2 ML AMP ONE (10:42)
[2024-11-14] MEDS ORDERED: ISOPROTERENOL 250 MCG/1.25 ML SYR IV ONE (10:42)
[2024-11-14] MEDS ORDERED: FUROSEMIDE 10 MG/ML 2 ML VIAL ONE (10:42)
[2024-11-14] MEDS ORDERED: PHENYLEPHRINE 10 MG/ML VIAL ONE (10:42)
[2024-11-14] MEDS ORDERED: MIDAZOLAM 2 MG/2 ML VIAL ONE (10:42)
[2024-11-14] MEDS ORDERED: WATER FOR INJECTION, STERILE 10 ML VIAL IV ONE (10:42)
[2024-11-14] MEDS ORDERED: ePHEDrine 50 MG/ML 1 ML VIAL ONE (10:42)
[2024-11-14] MEDS ORDERED: SUCCINYLCHOLINE CHLORIDE 200 MG/10 ML VIAL IV ONE (10:42)
[2024-11-14] MEDS ORDERED: LIDOCAINE 1% INJ 10MG/ML (20 ML MDV) ONE (10:42)
[2024-11-14] MEDS ORDERED: PROPOFOL 10 MG/ML 20 ML VIAL IV ONE (10:42)
[2024-11-14] MEDS ORDERED: HEPARIN SODIUM,PORCINE 10,000 UNIT/ML 1 ML VIAL ONE (10:42)
--- NOTE | 2024-11-14 11:02 | P.HPCAR ---
History of Present Illness This is Dr. Tan dictating an H/P on this patient The patient was interviewed and examined IMPRESSION / ASSESSMENT: Recurrent paroxysmal atrial fibrillation with RVR despite metoprolol and verapamil Past history of A-fib ablation in 2019 Maintained sinus rhythm for many years, right superior pulmonary vein was the arrhythmogenic PV Coronary artery disease status post PCI in 2013 Sick sinus syndrome status post pacemaker implantation Hypertension Dyslipidemia COPD on home oxygen, oxygen saturation 90% on room air Reduced LV systolic function 45 to 50% with LVH PVC burden of 14% PLAN: Reassess pulmonary veins, PVI as needed Linear ablation of the left atrium HPI Patient has been experiencing recurrent episodes of atrial fibrillation since last year. He has paroxysmal but very symptomatic atrial fibrillation associated with RVR despite a combination of high-dose beta-blockers and verapamil He remains on Xarelto Complains of shortness of breath with cough with expectoration but whitish phlegm, no fevers Pacemaker interrogated today shows atrial pacing impedance of 513 ohms and RV pacing impedance of 494 ohms Pacing mode reprogrammed to AAI-DDD 60. Rate responsiveness turned off for 4 procedure ROS: No fever chills or rigors, no cough, phlegm or expectoration, no nausea, vomiting or diarrhea, no hematuria, dysuria, no musculoskeletal complaints, no strokes or seizures, no skin lesions. EXAMINATION: Afebrile, pulse rate in the 70s respirations 18 nonlabored Blood pressure 131/93 mmHg Heart sounds S1-S2 are normal Breath sounds are reduced bilaterally with bilateral rhonchorous breath sounds no crackles No lower extremity edema REVIEW OF LABS, ECG & MEDICAL DATA Glucose 121 Medication list was reviewed and Xarelto was administered this morning Physical Exam Vitals: Vital Signs Temp Pulse Resp BP BP Pulse Ox 11/14/24 10:37 97.4 F L 76 18 138/94 131/93 90 L Intake and Output 11/13/24 11/14/24 11/14/24 22:59 06:59 14:59 Intake Total 50 Balance 50 Intake: IV 50 Other: Weight 93.1 kg Past Medical History Past Medical History: Atrial Fibrillation, COPD, CVA/TIA, Diabetes Mellitus, Osteoarthritis (OA), Pneumonia, Prostate Disorder, Sleep Apnea/CPAP/BIPAP Additional Past Medical History / Comment(s): SEE DR TAN H&P MILD CVA 03/27/16, WEAKNESS LT LEG AND ARM and when tired lt foot drag at times. "SPOT ON LIVER, BEING WATCHED" HX KIDNEY STONE, USEs O2 AT 2L History of Any Multi-Drug Resistant Organisms: None Reported Past Surgical History: Heart Catheterization, Heart Catheterization With Stent, Hernia Repair, Orthopedic Surgery, Pacemaker Additional Past Surgical History / Comment(s): 08/29/13 Cath with 50-60% stenosis L cx treated medically, possible PTCA about 10 yrs ago per pt old medical records. EXC Bilateral Feet BUNIONS. ORIF Right Wrist Surgery - TOOK BONE FROM RT HIP. PTCA W/ 1 STENT X2 IN 12/2015. cryo ablation 05/04/2018 for afib, bronchoscopy umbilical and inguianal hernia Past Anesthesia/Blood Transfusion Reactions: No Reported Reaction Date of Last Stent Placement:: 01/03/16 Type of Cardiac Device: Permanent Pacemaker Device Placement Date:: 07-30-17 Smoking Status: Current every day smoker - Past Family History Mother Family Medical History: Cancer, Diabetes Mellitus Additional Family Medical History / Comment(s): Mother is alive and 78 yrs old. She has NIDDM and had breast cancer. Brother(s) Family Medical History: Renal Disease Sister(s) Family Medical History: AFIB Daughter(s) Family Medical History: Cancer Additional Family Medical History / Comment(s): SKIN CANCER Son(s) Family Medical History: No Reported History Father Brother(s) Family Medical History: COPD, Coronary Artery Disease (CAD), CVA/TIA Additional Family Medical History / Comment(s): Father at 69yrs old of copd. Physical Examination Vital Signs Temp Pulse Resp BP BP Pulse Ox 11/14/24 10:37 97.4 F L 76 18 138/94 131/93 90 L Intake and Output 11/13/24 11/14/24 11/14/24 22:59 06:59 14:59 Intake Total 50 Balance 50 Intake: IV 50 Other: Weight 93.1 kg Results Current Medications Generic Name Dose Route Start Last Admin Trade Name Freq PRN Reason Stop Dose Admin Lactated Ringer's 1,000 mls @ 20 mls/hr 11/14/24 05:58 Lactated Ringers IV 12/14/24 05:57 .Q24H ABHI Sodium Chloride 1,000 mls @ 20 mls/hr 11/14/24 05:58 Saline 0.9% IV 12/14/24 05:57 .Q24H ABHI Intake and Output 11/13/24 11/14/24 11/14/24 22:59 06:59 14:59 Intake Total 50 Balance 50 Intake: IV 50 Other: Weight 93.1 kg Patient Weight 11/15/24 06:59 Weight 93.1 kg
[2024-11-14] MEDS: HEPARIN SOD,PORK IN 0.45% NACL 25,000 UNIT in 0.45% NACL 1 250ML.BAG IV ONE (11:12)
[2024-11-14] MEDS: HEPARIN SODIUM,PORCINE 10,000 UNIT in SODIUM CHLORIDE 0.9% 1,000 ML IRRIGATION ONE (11:13)
[2024-11-14] MEDS: LIDOCAINE 1% INJ 10MG/ML (20 ML MDV) SQ ONE (11:29)
[2024-11-14] MEDS: IOPAMIDOL-370 100ML BTL IVP ONE (11:42)
[2024-11-14] MEDS: IOPAMIDOL-370 100ML BTL INJ ONE (13:11)
[2024-11-14] MEDS: HEPARIN SODIUM,PORCINE (1 ML) 2,500 UNIT in SODIUM CHLORIDE 0.9% 250 ML IRRIGATION ONE (13:13)
[2024-11-14] MEDS ORDERED: ALBUTEROL NEBULIZED 2.5 MG/3 ML INHALATION PRN (13:25)
--- NOTE | 2024-11-14 13:47 | P.EPPROC ---
- EP Procedure Note Electrophysiology Procedure Note: PROCEDURE A. fib ablation DIAGNOSIS Paroxysmal atrial fibrillation, symptomatic, refractory to therapy. Prior PVI in 2019 RESULT No left atrial appendage mass seen on intracardiac echo Successful A. fib ablation/antral level pulmonary vein isolation of all veins using cryo-ablation Complete entrance block in all 4 veins confirmed Left atrial septal ablation Left atrial roof ablation No evidence for phrenic nerve injury Esophageal deflection NO PROCEDURE DETAILS Written informed consent prior to procedure. Patient brought to the EP lab. General anesthesia given. Heparin administered. A city maintained above 300 seconds Both groins prepped and draped per protocol and venous sheaths placed. Esophagus intubated, circa catheter for temperature monitoring an endoscope for possible esophageal deflection. Phrenic nerve monitoring performed. Esophageal temperature monitoring performed. Esophageal deflection performed if circa catheter overlapping with the balloon or circa temperature less than 27.5°C Intracardiac echocardiography performed. Pericardium evaluated. Left atrial appendage evaluated. Left atrium evaluated along with pulmonary veins Transseptal catheterization performed under fluoroscopic guidance and intracardiac echo guidance Cryoablation sheath exchanged, balloon catheter along with achieve catheter placed in the left atrium. Pulmonary veins were isolated at an ostial level from ablation in 2019. Pulmonary veins ablated at an antral level in the following sequence: Left superior pulmonary vein followed by left inferior pulmonary vein, followed by right inferior pulmonary vein and lastly right superior pulmonary vein. Phrenic nerve stimulation along with capture thresholds within the SVC and right superior pulmonary vein to identify the phrenic nerve proximity to the cryo- balloon. Pulmonary veins isolated and confirmed with entrance and exit block. Phrenic nerve integrity confirmed at the end of the procedure Ablation of the left atrial roof performed with sequential lesions from the left superior to the right superior pulmonary veins. Ablation of the electrograms confirmed Ablation of the left atrial septum performed with cannulation of the the inferior branch of the right superior vein to achieve ablation of the posterior septum of the left atrium. Ablation of electrograms confirmed Diagnostic catheters for the high right atrium, His bundle, coronary sinus placed. LA and RA pressures recorded LA pressure: 13/06/09 Diagnostic EP study with coronary sinus pacing and recording Baseline measurements: Sinus node recovery times 1177 and 1175. AV node Wenckebach block 560 ms DC interval 166 ms, QRS 110 QT 431 ms AH 80 and HV interval 43 ms Isopril infused Burst stimulation in the high right atrium performed. No atrial fibrillation induced Venous sheaths were removed and hemostasis assured with a closure device. Patient extubated and transferred to recovery Albuterol nebulizers given prior to extubation since patient has COPD. Extubated successfully PROCEDURES PERFORMED Diagnostic EP study CS pacing and recording Left and right transseptal catheterization Catheter the mapping of the tachycardia Intracardiac echocardiography Pulmonary vein isolation with transseptal and comprehensive EPS, 20785 Drug infusion, +[id number] Left atrial roof line, +[id number] Linear ablation, left atrium septum, +[id number]
--- NOTE | 2024-11-14 13:54 | P.EPPROC ---
- EP Procedure Note Electrophysiology Procedure Note: Left upper extremity venogram performed 15 cc IV dye injected Patent left subclavian and axillary venous system Plan If the patient continues to have A-fib with RVR then upgrade to a left bundle pacemaker/conduction system pacing followed by AV junction modification MAY be an option
[2024-11-14] MEDS: IPRATROPIUM-ALBUTEROL 3 ML NEB INHALATION STA (13:56)
--- NOTE | 2024-11-14 13:59 | P.PRLE ---
RE: Ronak Carter Dear Barb Ronakmikal Carter had previously undergone PVI in 2019. He remained free of atrial fibrillation for over 5 years but has had recurrences since late last year. I believe these recurrences are mostly related to progression of his COPD/lung disease. 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 Thank you for entrusting me with the care of the patient Warm regards Sincerely Montrell Tan
[2024-11-14 14:04] LABS: Glucose,Whole Blood 121 mg/dL (70-110)
[2024-11-14] MEDS: ALBUTEROL NEBULIZED 2.5 MG/3 ML INHALATION STA (15:23)
[2024-11-14] MEDS: ALBUTEROL NEBULIZED 2.5 MG/3 ML INHALATION SCH (15:24)
[2024-11-14] MEDS: ACETAMINOPHEN IV (For NPO) 1,000 MG in EMPTY BAG 1 BAG IVPB ONE (15:32)
[2024-11-14] MEDS: LACTATED RINGERS 1,000 ML IV SCH (15:45)
[2024-11-14] MEDS: SODIUM CHLORIDE 0.9% 1,000 ML IV SCH (15:45)
[2024-11-14 17:15] LABS: Glucose,Whole Blood 147 mg/dL (70-110)
[2024-11-14] MEDS: TAMSULOSIN 0.4 MG CAP.ER.24H PO SCH (18:15)
[2024-11-14 20:25] LABS: Glucose,Whole Blood 168 mg/dL (70-110)
[2024-11-14] MEDS: GLIMEPIRIDE 4 MG TAB PO SCH (21:11)
[2024-11-14] MEDS: ISOSORBIDE MONONITRATE ER 30 MG TAB.ER.24H PO SCH (21:11)
[2024-11-14] MEDS: metFORMIN 500 MG TAB PO SCH (21:11)
[2024-11-14] MEDS: METOPROLOL TARTRATE 50 MG TAB PO SCH (21:11)
[2024-11-14] MEDS: ACETAMINOPHEN TAB 325 MG TAB PO PRN (21:21)
[2024-11-15 00:43] VITALS: TEMP 98
[2024-11-15 06:11] LABS: Glucose,Whole Blood 174 mg/dL (70-110)
[2024-11-15 08:20] VITALS: BP 123/80; RESP 16
[2024-11-15] MEDS: PANTOPRAZOLE 40 MG TABLET PO SCH (08:21)
[2024-11-15] MEDS: CLOPIDOGREL 75 MG TAB PO SCH (08:22)
[2024-11-15] MEDS: RIVAROXABAN 20 MG TAB PO SCH (08:22)
[2024-11-15] MEDS: ATORVASTATIN 40 MG TAB PO SCH (08:22)
[2024-11-15] MEDS: MONTELUKAST 10 MG TAB PO SCH (08:23)
[2024-11-15] MEDS: EZETIMIBE 10 MG TAB PO SCH (08:24)
[2024-11-15] MEDS: DAPAGLIFLOZIN PROPANEDIOL 10 MG TABLET PO SCH (08:24)
[2024-11-15] MEDS: FUROSEMIDE 40 MG TAB PO SCH (08:24)
[2024-11-15] MEDS: ISOSORBIDE MONONITRATE ER 60 MG TAB.ER.24H PO SCH (08:24)
[2024-11-15 08:56] VITALS: PULSE 76
--- NOTE | 2024-11-15 11:54 | P.DS ---
Providers Attending physician: Montrell Tan Primary care physician: [facility] Course: Patient is doing well. Sitting up in the chair. Ambulating around the room. No chest discomfort dizziness lightheadedness or palpitations Heart sounds are normal Breath sounds are clear. They are much clearer than they were yesterday there are no rhonchi no crackles On examination, blood pressure 123/80 mmHg pulse rate in the 80s Head neck examination is normal heart sounds are normal breath sounds are clear Impression recurrent paroxysmal atrial fibrillation after successful PVI in 2019. Patient remained in sinus rhythm mostly for over 4 years Recent recurrences of atrial fibrillation Underwent left atrial roof ablation left atrial septal ablation along with entry-level PVI yesterday Pacemaker functioning normally Nonsustained VT on telemetry asymptomatic Plan Stop verapamil Continue metoprolol succinate 200 mg twice daily Continue Xarelto Continue all other medications Follow-up with Dr. Hernandez Incentive spirometry encouraged for the next 1 week Plan - Discharge Summary Discharge Rx Participant: No New Discharge Prescriptions: Continue Nitroglycerin Sl Tabs [Nitrostat] 0.4 mg SUBLINGUAL Q5M PRN PRN Reason: Chest Pain Montelukast [Singulair] 10 mg PO DAILY Albuterol Nebulized [Ventolin Nebulized] 2.5 mg INHALATION RT-QID Tamsulosin [Flomax] 0.4 mg PO BID Albuterol Inhaler [Ventolin Hfa Inhaler] 1 - 2 puff INHALATION RT-QID PRN PRN Reason: Shortness Of Breath Atorvastatin [Lipitor] 80 mg PO DAILY Clopidogrel [Plavix] 75 mg PO DAILY Isosorbide Mononitrate ER [Imdur] 30 mg PO HS Ezetimibe [Zetia] 10 mg PO DAILY Furosemide [Lasix] 40 mg PO DAILY Rivaroxaban [Xarelto] 20 mg PO DAILY Verapamil HCl [Verapamil ER] 240 mg PO DAILY Fluticasone/Umeclidin/Vilanter [Trelegy Ellipta 200-62.5-25] 1 puff INHALATION RT-BID Isosorbide Mononitrate ER [Imdur] 60 mg PO DAILY Glimepiride [Amaryl] 4 mg PO BID metFORMIN HCL 1,000 mg PO BID HYDROcodone/APAP 5-325MG [[place] 5-325] 1 tab PO Q6HR PRN PRN Reason: Pain Glucosam/Joaquín-Msm1/C/Saturnino/Bosw [Glucosamine-Chondroitin Tablet] 1 tab PO DAILY Cholecalciferol [Vitamin D3 (25 Mcg = 1000 Iu)] 25 mcg PO DAILY Pantoprazole [Protonix] 40 mg PO DAILY lisinopriL [Zestril] 40 mg PO DAILY Budesonide 0.3 mg INHALATION RT-QID Dapagliflozin Propanediol [Farxiga] 10 mg PO DAILY Metoprolol Tartrate [Lopressor] 200 mg PO BID ALPRAZolam [Xanax] 0.25 mg PO DAILY PRN PRN Reason: Anxiety Zinc Gluconate [Zinc] 50 mg PO DAILY L.acidoph,Paracasei, B.lactis [Probiotic] 1 cap PO DAILY Discharge Medication List Nitroglycerin Sl Tabs [Nitrostat] 0.4 mg SUBLINGUAL Q5M PRN 08/28/13 [History] Montelukast [Singulair] 10 mg PO DAILY 05/16/15 [History] Albuterol Inhaler [Ventolin Hfa Inhaler] 1 - 2 puff INHALATION RT-QID PRN 04/29/16 [History] Albuterol Nebulized [Ventolin Nebulized] 2.5 mg INHALATION RT-QID 04/29/16 [Hist ory] Tamsulosin [Flomax] 0.4 mg PO BID 04/29/16 [History] Atorvastatin [Lipitor] 80 mg PO DAILY 07/30/17 [History] Clopidogrel [Plavix] 75 mg PO DAILY 07/30/17 [History] Isosorbide Mononitrate ER [Imdur] 30 mg PO HS 07/30/17 [History] Budesonide 0.3 mg INHALATION RT-QID 06/27/24 [History] Dapagliflozin Propanediol [Farxiga] 10 mg PO DAILY 06/27/24 [History] Ezetimibe [Zetia] 10 mg PO DAILY 06/27/24 [History] Furosemide [Lasix] 40 mg PO DAILY 06/27/24 [History] ALPRAZolam [Xanax] 0.25 mg PO DAILY PRN 08/29/24 [History] Cholecalciferol [Vitamin D3 (25 Mcg = 1000 Iu)] 25 mcg PO DAILY 08/29/24 [Hi story] Fluticasone/Umeclidin/Vilanter [Trelegy Ellipta 200-62.5-25] 1 puff INHALATION RT-BID 08/29/24 [History] Glimepiride [Amaryl] 4 mg PO BID 08/29/24 [History] Glucosam/Joaquín-Msm1/C/Saturnino/Bosw [Glucosamine-Chondroitin Tablet] 1 tab PO DAILY 08/29/24 [History] HYDROcodone/APAP 5-325MG [[place] 5-325] 1 tab PO Q6HR PRN 08/29/24 [History] Isosorbide Mononitrate ER [Imdur] 60 mg PO DAILY 08/29/24 [History] L.acidoph,Paracasei, B.lactis [Probiotic] 1 cap PO DAILY 08/29/24 [History] Metoprolol Tartrate [Lopressor] 200 mg PO BID 08/29/24 [History] Pantoprazole [Protonix] 40 mg PO DAILY 08/29/24 [History] Rivaroxaban [Xarelto] 20 mg PO DAILY 08/29/24 [History] Verapamil HCl [Verapamil ER] 240 mg PO DAILY 08/29/24 [History] Zinc Gluconate [Zinc] 50 mg PO DAILY 08/29/24 [History] metFORMIN HCL 1,000 mg PO BID 08/29/24 [History] lisinopriL [Zestril] 40 mg PO DAILY 11/10/24 [History] Follow up Appointment(s)/Referral(s): Candelario Hernandez DO [STAFF PHYSICIAN] - 11/24/24 1:00 pm Activity/Diet/Wound Care/Special Instructions: Post EP study - Ablation instructions 1. Keep access sites dry for 2 days. 2. No heavy lifting or straining for 2 days. 3. Avoid bending the hips repeatedly for 2 days. 4. You may go up and down stairs slowly 5. If you have had an ablation for atrial fibrillation or atrial flutter and are on a blood thinner, do not stop the blood thinner even temporarily for 3 months post ablation Call if the following is noted 1. Bleeding, increasing swelling or pain at the access sites. 2. Increasing chest discomfort, especially upon taking a deep breath. 3. Increasing shortness of breath, at rest or with exertion. 4. Undue cough / phlegm 5. Difficulty or pain while swallowing. 6. Pain or change in color in the extremities. 7. Fever, chills, rigors. 8. Increasing headache or neurologic symptoms. 9. Dizziness, fainting, palpitations For patients who have undergone an A-fib ablation /atrial flutter ablation Strict instruction; do NOT stop anticoagulation (Eliquis/Xarelto/Pradaxa) for the next 2 months temporarily, for any elective, nonurgent surgery. This increases the risk of stroke, post A-fib ablation Use albuterol nebulizers [id number] for the next 3 days, at home Incentive spirometry [id number] for the next 3 days at home Discharge Disposition: HOME SELF-CARE
== END 2024-11-15 10:11 | disposition home or self-care (01) ==
LOC: CATHEP 09:29 → 6NMEDSUR 13:17 → CATHEP 11-15 10:11
PROVIDERS: ATTEND Internal Medicine Clinical Cardiac Electrophysiology
DX: I48.0 Paroxysmal atrial fibrillation (principal); Z45.010 Encounter for checking and testing of cardiac pacemaker pulse generator [battery]; I25.10 Atherosclerotic heart disease of native coronary artery without angina pectoris; I49.5 Sick sinus syndrome; I10 Essential (primary) hypertension; E78.5 Hyperlipidemia, unspecified; J44.9 Chronic obstructive pulmonary disease, unspecified; I49.3 Ventricular premature depolarization; E11.9 Type 2 diabetes mellitus without complications; F17.200 Nicotine dependence, unspecified, uncomplicated; G47.30 Sleep apnea, unspecified; Z79.01 Long term (current) use of anticoagulants; Z79.84 Long term (current) use of oral hypoglycemic drugs; Z79.899 Other long term (current) drug therapy; Z86.73 Personal history of transient ischemic attack (TIA), and cerebral infarction without residual deficits; Z95.5 Presence of coronary angioplasty implant and graft; Z99.81 Dependence on supplemental oxygen
CPT/HCPCS: 94640 ×4; 93623; 93656; 93657; 86900; 86901; 84443; 86850; C1894; C1769; C1760 ×3; C1730 ×2; C1733; C1766; J2250; J0330; J1644 ×3; J0690; J2003; J3010; J0131; J2704; Q9967; J2371; J1938

== ENCOUNTER 2024-11-24 08:31 | Inpatient (IN) | payer MEDICARE ==
--- NOTE | 2024-11-24 08:50 | ED ---
General Adult HPI - General Chief complaint: Chest Pain Stated complaint: Chest pain Time Seen by Provider: 11/24/24 08:36 Source: patient, RN notes reviewed Mode of arrival: ambulatory Limitations: no limitations - History of Present Illness Initial comments: Patient is a 64-year-old male presenting to the emergency department with concerns with chest discomfort. Onset of symptoms was 3 AM. Patient does have history of similar symptoms previously associate with cardiac disease. Patient has known A-fib and does have associated palpitations. Patient feels a little bit short of breath. Patient feels lightheaded. Patient states his heart rate at home was 170. Patient did have cardiac ablation done just 10 days ago. - Related Data Home Medications Medication Instructions Recorded Confirmed Nitroglycerin Sl Tabs [Nitrostat] 0.4 mg SUBLINGUAL Q5M PRN 08/28/13 11/14/24 Montelukast [Singulair] 10 mg PO DAILY 05/16/15 11/14/24 Albuterol Inhaler [Ventolin Hfa 1 - 2 puff INHALATION RT-QID PRN 04/29/16 Inhaler] Albuterol Nebulized [Ventolin 2.5 mg INHALATION RT-QID 04/29/16 11/14/24 Nebulized] Tamsulosin [Flomax] 0.4 mg PO BID 04/29/16 11/14/24 Atorvastatin [Lipitor] 80 mg PO DAILY 07/30/17 11/14/24 Clopidogrel [Plavix] 75 mg PO DAILY 07/30/17 11/14/24 Isosorbide Mononitrate ER [Imdur] 30 mg PO HS 07/30/17 11/14/24 Budesonide 0.3 mg INHALATION RT-QID 06/27/24 11/14/24 Dapagliflozin Propanediol [Farxiga] 10 mg PO DAILY 06/27/24 11/14/24 Ezetimibe [Zetia] 10 mg PO DAILY 06/27/24 11/14/24 Furosemide [Lasix] 40 mg PO DAILY 06/27/24 11/14/24 ALPRAZolam [Xanax] 0.25 mg PO DAILY PRN 08/29/24 11/10/24 Cholecalciferol [Vitamin D3 (25 25 mcg PO DAILY 08/29/24 11/14/24 Mcg = 1000 Iu)] Fluticasone/Umeclidin/Vilanter 1 puff INHALATION RT-BID 08/29/24 11/14/24 [Trelegy Ellipta 200-62.5-25] Glimepiride [Amaryl] 4 mg PO BID 08/29/24 11/14/24 Glucosam/Joaquín-Msm1/C/Saturnino/Bosw 1 tab PO DAILY 08/29/24 11/10/24 [Glucosamine-Chondroitin Tablet] HYDROcodone/APAP 5-325MG [Eagan 1 tab PO Q6HR PRN 08/29/24 11/10/24 5-325] Isosorbide Mononitrate ER [Imdur] 60 mg PO DAILY 08/29/24 11/14/24 L.acidoph,Paracasei, B.lactis 1 cap PO DAILY 08/29/24 08/29/24 [Probiotic] Metoprolol Tartrate [Lopressor] 200 mg PO BID 08/29/24 11/14/24 Pantoprazole [Protonix] 40 mg PO DAILY 08/29/24 11/14/24 Rivaroxaban [Xarelto] 20 mg PO DAILY 08/29/24 11/14/24 Verapamil HCl [Verapamil ER] 240 mg PO DAILY 08/29/24 11/10/24 Zinc Gluconate [Zinc] 50 mg PO DAILY 08/29/24 08/29/24 metFORMIN HCL 1,000 mg PO BID 08/29/24 11/14/24 lisinopriL [Zestril] 40 mg PO DAILY 11/10/24 11/14/24 Allergies Allergy/AdvReac Type Severity Reaction Status Date / Time codeine Allergy Unknown Verified 11/24/24 08:35 Review of Systems ROS Statement: Those systems with pertinent positive or pertinent negative responses have been documented in the HPI. ROS Other: All systems not noted in ROS Statement are negative. Constitutional: Denies: fever Eyes: Denies: eye pain ENT: Denies: throat pain Respiratory: Reports: dyspnea Cardiovascular: Reports: as per HPI, chest pain, palpitations Past Medical History Past Medical History: Atrial Fibrillation, COPD, CVA/TIA, Diabetes Mellitus, Osteoarthritis (OA), Pneumonia, Prostate Disorder, Sleep Apnea/CPAP/BIPAP Additional Past Medical History / Comment(s): SEE DR DURAN H&P MILD CVA 03/27/16, WEAKNESS LT LEG AND ARM and when tired lt foot drag at times. "SPOT ON LIVER, BEING WATCHED" HX KIDNEY STONE, USEs O2 AT 2L History of Any Multi-Drug Resistant Organisms: None Reported Past Surgical History: Heart Catheterization, Heart Catheterization With Stent, Hernia Repair, Orthopedic Surgery, Pacemaker Additional Past Surgical History / Comment(s): 08/29/13 Cath with 50-60% stenosis L cx treated medically, possible PTCA about 10 yrs ago per pt old medical records. EXC Bilateral Feet BUNIONS. ORIF Right Wrist Surgery - TOOK BONE FROM RT HIP. PTCA W/ 1 STENT X2 IN 12/2015. cryo ablation 05/04/2018 for afib, bronchoscopy umbilical and inguianal hernia Past Anesthesia/Blood Transfusion Reactions: No Reported Reaction Date of Last Stent Placement:: 01/03/16 Type of Cardiac Device: Permanent Pacemaker Device Placement Date:: 07-30-17 Past Psychological History: Anxiety Smoking Status: Current every day smoker Past Alcohol Use History: None Reported Past Drug Use History: None Reported - Past Family History Mother Family Medical History: Cancer, Diabetes Mellitus Additional Family Medical History / Comment(s): Mother is alive and 78 yrs old. She has NIDDM and had breast cancer. Brother(s) Family Medical History: Renal Disease Sister(s) Family Medical History: AFIB Daughter(s) Family Medical History: Cancer Additional Family Medical History / Comment(s): SKIN CANCER Son(s) Family Medical History: No Reported History General Exam Limitations: no limitations General appearance: alert Head exam: Present: normocephalic Eye exam: Present: normal appearance Neck exam: Present: normal inspection Respiratory exam: Present: normal lung sounds bilaterally Cardiovascular Exam: Present: tachycardia, irregular rhythm GI/Abdominal exam: Present: soft. Absent: tenderness Extremities exam: Present: normal inspection. 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 Nonspecific T waves.), normal axis EKG shows: tachycardia, atrial fibrillation Procedures - Procedures Initial comment: Electrocardioversion x 4: 100 then 200 x 3. Patient heart rate did improve to under 130. Blood pressure has been labile from upper 80s to 114 systolic. Patient started on amiodarone drip Patient is already anticoagulated Medical Decision Making - Medical Decision Making Was pt. sent in by a medical professional or institution (, PA, LUMBER SORTER MACHINE, urgent care, hospital, or fci...) When possible be specific @ -No Did you speak to anyone other than the patient for history (EMS, parent, family, police, friend...)? What history was obtained from this source @ -Family is present helps provide history of A-fib Did you review nursing and triage notes (agree or disagree)? Why? @ -I reviewed and agree with nursing and triage notes Were old charts reviewed (outside hosp., previous admission, EMS record, old EKG, old radiological studies, urgent care reports/EKG's, fci records)? Report findings @ -No old charts were reviewed Differential Diagnosis (chest pain, altered mental status, abdominal pain women, abdominal pain men, vaginal bleeding, weakness, fever, dyspnea, syncope, headache, dizziness, GI bleed, back pain, seizure, CVA, palpatations, mental health, musculoskeletal)? @ -Differential Palpitations Ventricular arrhythmias, atrial arrhythmias, myocardial infarction, anemia, thyrotoxicosis, electrolyte imbalance, hypokalemia, pulmonary embolism, pulmonary disease, drugs, alcohol, anxiety, stress.... This is not meant to be an all-inclusive list. EKG interpreted by me (3pts min.). @ -As above X-rays interpreted by me (1pt min.). @ -Chest x-ray with nonspecific findings CT interpreted by me (1pt min.). @ -None done U/S interpreted by me (1pt. min.). @ -None done What testing was considered but not performed or refused? (CT, X-rays, U/S, labs)? Why? @ -None What meds were considered but not given or refused? Why? @ -None Did you discuss the management of the patient with other professionals (professionals i.e. , PA, LUM[employer] S[employer]TER MACHINE, lab, RT, psych nurse, rn social services, lubrication servicer, teacher, correction officer penitentiary, human services case manager)? Give summary @ -Case was discussed with Dr. Tovar who did agree with cardioversion. Case also discussed with practitioner Glenis Ramirez who will admit covering Dr. Hannon who admits for Dr. Oliver Was smoking cessation discussed for >3mins.? @ -No Was critical care preformed (if so, how long)? @ -45 minutes critical care time Were there social determinants of health that impacted care today? How? (Homelessness, low income, unemployed, alcoholism, drug addiction, transportation, low edu. Level, literacy, decrease access to med. care, longterm, rehab)? @ -No Was there de-escalation of care discussed even if they declined (Discuss DNR or withdrawal of care, Hospice)? DNR status @ -No What co-morbidities impacted this encounter? (DM, HTN, Smoking, COPD, CAD, Cancer, CVA, ARF, Chemo, Hep., AIDS, mental health diagnosis, sleep apnea, morbid obesity)? @ -History of A-fib Was patient admitted / discharged? Hospital course, mention meds given and route, prescriptions, significant lab abnormalities, going to OR and other pertinent info. @ -Patient presents A-fib RVR. Patient with electrical cardioversion x 4. Some improvement. Amiodarone also started. Patient will be admitted with card iac consult. Patient updated. Admission orders written. Undiagnosed new problem with uncertain prognosis? @ -No Drug Therapy requiring intensive monitoring for toxicity (Heparin, Nitro, Insulin, Cardizem)? @ -No Were any procedures done? @ -Electrocardioversion, see above Diagnosis/symptom? @ -A-fib with RVR Acute, or Chronic, or Acute on Chronic? @ -Acute Uncomplicated (without systemic symptoms) or Complicated (systemic symptoms)? @ -Complicated with hypotension Side effects of treatment? @ -No Exacerbation, Progression, or Severe Exacerbation? @ -No Poses a threat to life or bodily function? How? (Chest pain, [place], [place], pneumonia, PE, COPD, DKA, ARF, appy, cholecystitis, CVA, Diverticulitis, Homicidal, Suicidal, threat to staff... and all critical care pts) @ -Threat to cardiac function - Lab Data Result diagrams: 11/24/24 08:52 11/24/24 08:52 Lab Results 11/24/24 11/24/24 11/24/24 Range/Units 08:52 08:52 08:52 WBC 12.44 H (4.50-10.00) 10*3/uL RBC 4.87 (4.40-5.60) 10*6/uL Hgb 14.5 (13.0-17.0) g/dL Hct 44.2 (39.6-50.0) % MCV 90.8 (80.0-97.0) fL MCH 29.8 (27.0-32.0) pg MCHC 32.8 (32.0-37.0) g/dL Plt Count 260 (140-440) 10*3/uL MPV 9.7 (9.5-12.2) fL Immature Gran % (Auto) 0.4 % Neutrophils % 74.7 % Lymphocytes % 13.7 % Monocytes % 9.2 % Eosinophils % 1.4 % Basophils % 0.6 % Immature Gran # 0.05 H (0.00-0.04) 10*3/uL Neutrophils # 9.29 H (1.80-7.70) 10*3/uL Lymphocytes # 1.70 (0.90-5.00) 10*3/uL Monocytes # 1.14 H (0.20-1.00) 10*3/uL Eosinophils # 0.18 (0.04-0.35) 10*3/uL Basophils # 0.08 (0.00-0.10) 10*3/uL PT 12.6 H (10.0-12.5) sec INR 1.2 H (<1.2) APTT 23.6 (22.0-30.0) sec Sodium 138 (137-145) mmol/L Potassium 4.3 (3.5-5.1) mmol/L Chloride 101 (98-107) mmol/L Carbon Dioxide 23 (22-30) mmol/L Anion Gap 14 mmol/L BUN 29 H (9-20) mg/dL Creatinine 0.68 (0.66-1.25) mg/dL Est GFR (CKD-EPI)AfAm >90 (>60 ml/min/1.73 sqM) Est GFR (CKD-EPI)NonAf >90 (>60 ml/min/1.73 sqM) Glucose 142 H (74-99) mg/dL Calcium 9.6 (8.4-10.2) mg/dL Magnesium 1.7 (1.6-2.3) mg/dL Total Bilirubin 1.3 (0.2-1.3) mg/dL AST 18 (17-59) U/L ALT 15 (4-49) U/L Alkaline Phosphatase 84 (38-126) U/L Troponin I (0.000-0.034) ng/mL Total Protein 6.2 L (6.3-8.2) g/dL Albumin 3.9 (3.5-5.0) g/dL 11/24/24 Range/Units 08:52 WBC (4.50-10.00) 10*3/uL RBC (4.40-5.60) 10*6/uL Hgb (13.0-17.0) g/dL Hct (39.6-50.0) % MCV (80.0-97.0) fL MCH (27.0-32.0) pg MCHC (32.0-37.0) g/dL Plt Count (140-440) 10*3/uL MPV (9.5-12.2) fL Immature Gran % (Auto) % Neutrophils % % Lymphocytes % % Monocytes % % Eosinophils % % Basophils % % Immature Gran # (0.00-0.04) 10*3/uL Neutrophils # (1.80-7.70) 10*3/uL Lymphocytes # (0.90-5.00) 10*3/uL Monocytes # (0.20-1.00) 10*3/uL Eosinophils # (0.04-0.35) 10*3/uL Basophils # (0.00-0.10) 10*3/uL PT (10.0-12.5) sec INR (<1.2) APTT (22.0-30.0) sec Sodium (137-145) mmol/L Potassium (3.5-5.1) mmol/L Chloride (98-107) mmol/L Carbon Dioxide (22-30) mmol/L Anion Gap mmol/L BUN (9-20) mg/dL Creatinine (0.66-1.25) mg/dL Est GFR (CKD-EPI)AfAm (>60 ml/min/1.73 sqM) Est GFR (CKD-EPI)NonAf (>60 ml/min/1.73 sqM) Glucose (74-99) mg/dL Calcium (8.4-10.2) mg/dL Magnesium (1.6-2.3) mg/dL Total Bilirubin (0.2-1.3) mg/dL AST (17-59) U/L ALT (4-49) U/L Alkaline Phosphatase (38-126) U/L Troponin I 0.125 H* (0.000-0.034) ng/mL Total Protein (6.3-8.2) g/dL Albumin (3.5-5.0) g/dL Critical Care Time Critical Care Time: Yes Disposition Clinical Impression: Atrial fibrillation with RVR Disposition: ADMITTED IP TO THIS [facility] Condition: Serious Is patient prescribed a controlled substance at d/c from ED?: No Referrals: Barb Oliver MD [Primary Care Provider] - 1-2 days Time of Disposition: 09:59
[2024-11-24] MEDS: DILTIAZEM 125 MG in DEXTROSE 5% IN WATER 100 ML IV SCH (09:03)
[2024-11-24 09:11] LABS: Basophils # (A) 0.08 10*3/uL (0.00-0.10); Basophils % (A) 0.6 %; Eosinophils # (A) 0.18 10*3/uL (0.04-0.35); Eosinophils % (A) 1.4 %; HCT 44.2 % (39.6-50.0); HGB 14.5 g/dL (13.0-17.0); Lymphocytes # (A) 1.70 10*3/uL (0.90-5.00); Lymphocytes % (A) 13.7 %; MCH 29.8 pg (27.0-32.0); MCHC 32.8 g/dL (32.0-37.0); MCV 90.8 fL (80.0-97.0); Monocytes # (A) 1.14 10*3/uL (0.20-1.00); Monocytes % (A) 9.2 %; Neutrophils # (A) 9.29 10*3/uL (1.80-7.70); Neutrophils % (A) 74.7 %; Platelet Count 260 10*3/uL (140-440); RBC 4.87 10*6/uL (4.40-5.60); RDW 13.2 % (11.5-14.5); WBC 12.44 10*3/uL (4.50-10.00)
--- NOTE | 2024-11-24 09:15 | XR ---
EXAMINATION TYPE: XR chest 1V portable DATE OF EXAM: 11/24/2024 9:06 AM COMPARISON: 08/29/2024 CLINICAL INDICATION: Male, 64 years old with history of dysrhythmia, TECHNIQUE: XR chest 1V portable views of the chest are obtained. FINDINGS: Demonstrated are scattered senescent parenchymal change. Dual-lead pacer is unchanged in position. Mild Chronic elevation left hemidiaphragm with left basilar parenchymal scar or atelectasis. Mild pat pierce density right medial lung base could reflect developing atelectasis and/or infiltrate. The heart is stable. Hilar and mediastinal structures are within normal limits. Degenerative changes are seen of the dorsal spine. IMPRESSION: 1. Mild Chronic elevation left hemidiaphragm with left basilar parenchymal scar or atelectasis. Mild patchy density right medial lung base could reflect developing atelectasis and/or infiltrate. [facility], , 11/24/2024 9:13 AM
[2024-11-24 09:24] LABS: INR 1.2 (<1.2); Partial Thromboplastin Time 23.6 sec (22.0-30.0); Prothrombin Time 12.6 sec (10.0-12.5)
[2024-11-24 09:26] LABS: ALT 15 U/L (4-49); AST 18 U/L (17-59); African American GFR (CKD) >90 (>60 ml/min/1.73 sqM); Albumin 3.9 g/dL (3.5-5.0); Alkaline Phosphatase 84 U/L (38-126); Anion Gap 14 mmol/L; Blood Urea Nitrogen 29 mg/dL (9-20); Calcium 9.6 mg/dL (8.4-10.2); Carbon Dioxide 23 mmol/L (22-30); Chloride 101 mmol/L (98-107); Glucose 142 mg/dL (74-99); Magnesium 1.7 mg/dL (1.6-2.3); Non-African American GFR(CKD) >90 (>60 ml/min/1.73 sqM); Potassium 4.3 mmol/L (3.5-5.1); Sodium 138 mmol/L (137-145); Total Protein 6.2 g/dL (6.3-8.2)
[2024-11-24] MEDS: DILTIAZEM 5 MG/ML 5 ML VIAL IVP STA (09:47)
[2024-11-24] MEDS: MIDAZOLAM 1 MG/ML 5 ML VIAL IV STA ×2 (09:49→09:51)
[2024-11-24] MEDS: DEXTROSE 5% IN WATER 100 ML with AMIODARONE 150 MG IV ONE (09:58)
[2024-11-24] MEDS ORDERED: NITROGLYCERIN SL TABS 0.4 MG TAB SUBLINGUAL PRN (10:01)
[2024-11-24] MEDS: AMIODARONE 360 MG in DEXTROSE 5% IN WATER 200 ML IV ONE (10:15)
[2024-11-24 10:53] LABS: T4, Free (Free Thyroxine) 1.15 ng/dL (0.78-2.19)
--- NOTE | 2024-11-24 12:52 | P.CRDCN ---
History of Present Illness Consult date: 11/24/24 Consult reason: atrial fibrillation (with RVR) History of present illness: This is a 64-year-old male patient of Dr. Hernandez with past medical history of coronary artery disease status post PCI of the LAD and circumflex in 2013, paroxysmal atrial fibrillation status post ablation in 2019, sick sinus syndrome status post dual-chamber permanent pacemaker, hypertension, hyperlipidemia, CVA, diabetes, asthma, remote history of tobacco use, mild ascending aortic aneurysm measuring 4.3 to 4.4 cm, LVH, known PVC burden 14%. We have been asked to evaluate the patient for atrial fibrillation with RVR. For 2 days patient has not been feeling well and family member states that his blood pressure has been labile but mostly on the lower side. He also has had episodes where his heart will jump up and be fast. He also developed some chest pain across his chest. At home his blood pressure was 180 systolic. At 3 AM this morning, he had sudde n onset of chest discomfort. His heart rate at home was 170. He recently underwent atrial fibrillation ablation on 11/14/[address] Duran. Initially, patient was found to be in atrial fibrillation and was hypotensive and subsequently underwent electrocardioversion times 4. Patient then went into atrial tachycardia. Blood pressures are gradually improving. He has also been started on amiodarone drip. -EKG: Atrial fibrillation with RVR #2 atrial tachycardia 124 bpm -Chest x-ray: Mild chronic elevation of the left hemidiaphragm with left basilar parenchymal scar or atelectasis. Mild patchy density right medial lung base could reflect developing atelectasis and/or infiltrate.. -Laboratory studies: WBC 12.4, hemoglobin 14.5, INR 1.2, potassium 4.3, BUN 29, creatinine 0.68. Troponin 0.125, 0.129. TSH 1.2 and free T4 normal at 1.15. -Home cardiac medications: Atorvastatin 80 mg daily, Plavix 75 mg daily, Farxiga 10 mg daily, Zetia 10 mg daily, Lasix 40 mg twice daily, Imdur 60 mg in the morning and 30 mg in the evening, lisinopril 40 mg daily, metoprolol tartrate 200 mg twice daily, Nitrostat as needed, Xarelto 20 mg daily. -11/14/2024: Pulmonary vein isolation, ablation for atrial fibrillation - Echocardiogram performed in the office on 04/04/2024 revealed EF of 45 to 50%, moderate left ventricular hypertrophy, aortic valve is calcified with mild aortic regurgitation, mild mitral regurgitation, mild to moderate tricuspid regurgitation. Normal PASP. Mild pulmonic regurgitation. -Lexiscan Cardiolite stress test performed in the office on 03/23/2023 revealed nonspecific stress EKG portion secondary to baseline EKG abnormalities. Fixed inferior perfusion defects most consistent with diaphragmatic attenuation artifact. Normal left ventricular EF 60%. -Most recent left heart catheterization performed 06/29/2024 revealed CAD including 20 to 30% LAD, 50% diagonal 2, 40% circumflex, 30 to 40% PLV stenosis, LVEDP 16. Review Of Systems: At the time of my exam: CONSTITUTIONAL: Denies fever or chills. HEENT: Denies blurred vision, vision changes, or eye pain. Denies hemoptysis CARDIOVASCULAR: Denies chest pain. Denies orthopnea. Denies PND. Denies palpitations RESPIRATORY: Reports shortness of breath. GASTROINTESTINAL: Denies abdominal pain. Denies nausea or vomiting. HEMATOLOGIC: Denies bleeding disorders. GENITOURINARY: Denies any blood in urine. SKIN: Denies puritis. Denies rash. Physical examination: Gen: This is 64-year-old male in no acute distress VS: reviewed HEENT: Head is atraumatic, normocephalic. Pupils equal, round. Sclerae is anicteric. NECK: Supple. No JVD. LUNGS: Bilateral wheezing. No intercostal retractions. HEART: Regular rate and rhythm. Tachycardic ABDOMEN: Soft No tenderness. EXTREMITIES: No pedal edema. No calf tenderness. NEUROLOGICAL: Patient is awake, alert and oriented x3. Assessment: Paroxysmal atrial fibrillation with RVR Sinus tachycardia History of coronary artery disease with PCI of the LAD and circumflex History of atrial fibrillation ablation in 2019 and 11/14/2024 Sick sinus syndrome status post dual-chamber permanent pacemaker 2018 [employer] device Hypertension Hyperlipidemia History of CVA Diabetes Mild ascending aortic aneurysm Plan: Resume the following home cardiac medications: Lipitor, Plavix, Farxiga, Zetia, Xarelto Continue amiodarone drip per protocol Obtain stat echocardiogram to rule out pericardial effusion At the time of discharge, the patient will follow-up in the office with Dr. Hernandez in 1 week. Thank you kindly for this consultation. Nurse practitioner note has been reviewed, I agree with documented findings and plan of care. Patient was seen and examined. Past Medical History Past Medical History: Atrial Fibrillation, COPD, CVA/TIA, Diabetes Mellitus, Osteoarthritis (OA), Pneumonia, Prostate Disorder, Sleep Apnea/CPAP/BIPAP Additional Past Medical History / Comment(s): SEE DR DURAN H&P MILD CVA 1 05/28/15, WEAKNESS LT LEG AND ARM and when tired lt foot drag at times. "SPOT ON LIVER, BEING WATCHED" HX KIDNEY STONE, USEs O2 AT 2L History of Any Multi-Drug Resistant Organisms: None Reported Past Surgical History: Heart Catheterization, Heart Catheterization With Stent, Hernia Repair, Orthopedic Surgery, Pacemaker Additional Past Surgical History / Comment(s): 08/29/13 Cath with 50-60% stenosis L cx treated medically, possible PTCA about 10 yrs ago per pt old medical records. EXC Bilateral Feet BUNIONS. ORIF Right Wrist Surgery - TOOK BONE FROM RT HIP. PTCA W/ STENT X2 IN 12/2015. cryo ablation 05/04/2018 for afib, bronchoscopy umbilical and inguianal hernia Past Anesthesia/Blood Transfusion Reactions: No Reported Reaction Date of Last Stent Placement:: 01/03/16 Type of Cardiac Device: Permanent Pacemaker Device Placement Date:: 07-30-17 Past Psychological History: Anxiety Smoking Status: Current every day smoker Past Alcohol Use History: None Reported Past Drug Use History: None Reported - Past Family History Mother Family Medical History: Cancer, Diabetes Mellitus Additional Family Medical History / Comment(s): Mother is alive and 78 yrs old. She has NIDDM and had breast cancer. Brother(s) Family Medical History: Renal Disease Sister(s) Family Medical History: AFIB Daughter(s) Family Medical History: Cancer Additional Family Medical History / Comment(s): SKIN CANCER Son(s) Family Medical History: No Reported History Medications and Allergies Home Medications Medication Instructions Recorded Confirmed Type Nitroglycerin Sl Tabs [Nitrostat] 0.4 mg SUBLINGUAL Q5M PRN 08/28/13 11/24/24 History Montelukast [Singulair] 10 mg PO DAILY 05/16/15 11/24/24 History Albuterol Inhaler [Ventolin Hfa 2 puff INHALATION RT-Q4H PRN 04/29/16 11/24/24 History Inhaler] Tamsulosin [Flomax] 0.4 mg PO BID 04/29/16 11/24/24 History Clopidogrel [Plavix] 75 mg PO DAILY 07/30/17 11/24/24 History Isosorbide Mononitrate ER [Imdur] 30 mg PO HS 07/30/17 11/24/24 History Budesonide 0.5 mg INHALATION RT-BID 06/27/24 11/24/24 History Dapagliflozin Propanediol [Farxiga] 10 mg PO DAILY 06/27/24 11/24/24 History Ezetimibe [Zetia] 10 mg PO DAILY 06/27/24 11/24/24 History Furosemide [Lasix] 40 mg PO BID 06/27/24 11/24/24 History ALPRAZolam [Xanax] 0.25 mg PO DAILY PRN 08/29/24 11/24/24 History Cholecalciferol [Vitamin D3 (25 25 mcg PO DAILY 08/29/24 11/24/24 History Mcg = 1000 Iu)] Fluticasone/Umeclidin/Vilanter 1 puff INHALATION RT-DAILY 08/29/24 11/24/24 History [Trelegy Ellipta 200-62.5-25] Glimepiride [Amaryl] 4 mg PO BID 08/29/24 11/24/24 History Glucosam/Joaquín-Msm1/C/[place]/Bosw 1 tab PO DAILY 08/29/24 11/24/24 History [Glucosamine-Chondroitin Tablet] HYDROcodone/APAP 5-325MG [[place] 1 tab PO Q6HR PRN 08/29/24 11/24/24 History 5-325] Isosorbide Mononitrate ER [Imdur] 60 mg PO DAILY 08/29/24 11/24/24 History L.acidoph,Paracasei, B.lactis 1 cap PO DAILY 08/29/24 11/24/24 History [Probiotic] Metoprolol Tartrate [Lopressor] 200 mg PO BID 08/29/24 11/24/24 History Rivaroxaban [Xarelto] 20 mg PO DAILY 08/29/24 11/24/24 History Zinc Gluconate [Zinc] 50 mg PO DAILY 08/29/24 11/24/24 History metFORMIN HCL 1,000 mg PO BID 08/29/24 11/24/24 History lisinopriL [Zestril] 40 mg PO DAILY 11/10/24 11/24/24 History Atorvastatin [Lipitor] 80 mg PO DAILY 11/24/24 11/24/24 History Ipratropium-Albuterol Nebulize 3 ml INHALATION RT-Q6H 11/24/24 11/24/24 History [Duoneb 0.5 mg-3 mg/3 ml Soln] Multivitamins, Thera [Multivitamin 1 tab PO DAILY 11/24/24 11/24/24 History (formulary)] Omeprazole Magnesium [PriLOSEC OTC] 20 mg PO DAILY 11/24/24 11/24/24 History Amiodarone HCl [Pacerone] 400 mg PO BID #72 tablet 11/25/24 Rx Allergies Allergy/AdvReac Type Severity Reaction Status Date / Time codeine Allergy Unknown Verified 11/24/24 11:32 Physical Exam Vitals: Vital Signs Temp Pulse Pulse Resp BP Pulse Ox 11/24/24 11:11 109 H 20 82/59 94 L 11/24/24 11:02 71/47 11/24/24 10:43 117 H 20 104/68 95 11/24/24 10:34 144 H 11/24/24 10:21 112 H 18 74/50 95 11/24/24 09:41 123 H 18 93/69 96 11/24/24 09:33 137 H 114/75 11/24/24 09:29 133 H 92/77 11/24/24 09:09 123 H 83/67 11/24/24 08:52 163 H 11/24/24 08:33 97.7 F 168 H 22 95/65 96 Intake and Output 11/23/24 11/24/24 11/24/24 22:59 06:59 14:59 Other: Weight 99.79 kg Results 11/25/24 06:19 11/25/24 06:19 Cardiac Enzymes 11/24/24 11/24/24 Range/Units 08:52 08:52 AST 18 (17-59) U/L Troponin I 0.125 H* (0.000-0.034) ng/mL Coagulation 11/24/24 Range/Units 08:52 PT 12.6 H (10.0-12.5) sec APTT 23.6 (22.0-30.0) sec CBC 11/24/24 Range/Units 08:52 WBC 12.44 H (4.50-10.00) 10*3/uL RBC 4.87 (4.40-5.60) 10*6/uL Hgb 14.5 (13.0-17.0) g/dL Hct 44.2 (39.6-50.0) % Plt Count 260 (140-440) 10*3/uL Comprehensive Metabolic Panel 11/24/24 Range/Units 08:52 Sodium 138 (137-145) mmol/L Potassium 4.3 (3.5-5.1) mmol/L Chloride 101 (98-107) mmol/L Carbon Dioxide 23 (22-30) mmol/L BUN 29 H (9-20) mg/dL Creatinine 0.68 (0.66-1.25) mg/dL Glucose 142 H (74-99) mg/dL Calcium 9.6 (8.4-10.2) mg/dL AST 18 (17-59) U/L ALT 15 (4-49) U/L Alkaline Phosphatase 84 (38-126) U/L Total Protein 6.2 L (6.3-8.2) g/dL Albumin 3.9 (3.5-5.0) g/dL Current Medications Generic Name Dose Route Start Last Admin Trade Name Freq PRN Reason Stop Dose Admin Amiodarone HCl 450 mg/ 250 mls @ 16.667 mls/hr 11/24/24 15:45 Dextrose/Water IV 11/25/24 09:44 .Q15H ABHI Protocol 0.5 MG/MIN Amiodarone HCl 360 mg/ 200 mls @ 33.333 mls/hr 11/24/24 09:43 11/24/24 10:15 Dextrose/Water IV 11/24/24 15:42 1 mg/min .Q6H ONE 33.333 mls/hr Administration Protocol 1 MG/MIN Nitroglycerin 0.4 mg 11/24/24 10:01 Nitroglycerin Sl Tabs 0.4 Mg Tab SUBLINGUAL Q5M PRN Chest Pain Intake and Output 11/23/24 11/24/24 11/24/24 22:59 06:59 14:59 Other: Weight 99.79 kg Patient Weight 11/25/24 06:59 Weight 99.79 kg 11/24/24 08:52 11/24/24 08:52
[2024-11-24] MEDS ORDERED: ALPRAZolam 0.25 MG TAB PO PRN (13:20)
[2024-11-24] MEDS: IPRATROPIUM-ALBUTEROL 3 ML NEB INHALATION SCH (14:46)
--- NOTE | 2024-11-24 14:56 | HP ---
HISTORY AND PHYSICAL CHIEF COMPLAINT: Chest discomfort. HISTORY OF PRESENT ILLNESS: This 64-year-old gentleman with a past medical history of atrial fibrillation, was admitted with chest pain and palpitations. The chest pain was felt in the anterior part of chest. The patient was found to be in atrial fibrillation with a fast ventricular rate. The patient is started on amiodarone drip per protocol. The patient's troponin is also elevated. There is no history of fever, rigors, chills at this time. Cardiology evaluation in progress at this time. PAST MEDICAL HISTORY: Reviewed, include atrial fibrillation, COPD. Rest of the history and chart is also reviewed. HOME MEDICATIONS: Reviewed, include zinc gluconate, dose and rest of medications reviewed. ALLERGIES: Codeine. FAMILY HISTORY: History of diabetes and cancer. SOCIAL HISTORY: History of smoking. REVIEW OF SYSTEMS: A 14-point review of systems negative except as mentioned earlier. PHYSICAL EXAMINATION: VITAL SIGNS: Pulse is 109, irregular, blood pressure 90/60, respirations 20. HEENT: Conjunctivae normal. NECK: No jugular venous distention. CARDIOVASCULAR: S1-S2 is tachycardic. RESPIRATORY: Breath sounds diminished at the bases. No rhonchi. No crackles. ABDOMEN: Soft and nontender. LEGS: No edema. NERVOUS SYSTEM: Nonfocal. LABS: Reviewed. WBC 12.44. Troponin noted. ASSESSMENT: 1. Atrial ablation with a fast ventricular rate. 2. Chest pain with troponin 0.129, rule out acute [id number]-elevation myocardial infarction. 3. Elevated WBC. 4. Chronic obstructive pulmonary disease. 5. Diabetes mellitus, type 2. 6. History of pneumonia. 7. Sleep apnea. 8. Multiple complex medical issues. 9. Coronary artery disease with stent. RECOMMENDATIONS: This 64-year-old gentleman presented with multiple complex medical issues. We will monitor the patient closely. Continue the current medications. Continue symptomatic treatment. Continue with amiodarone drip. Repeat labs. Antiplatelet agents. Closely follow with Cardiology. Prognosis guarded because of multiple complex medical issues. The patient is on Xarelto at this time. MMODL / IJN: [id number] /
[2024-11-24] MEDS: FUROSEMIDE 40 MG TAB PO SCH (15:21)
[2024-11-24] MEDS: AMIODARONE 450 MG in DEXTROSE 5% IN WATER 250 ML IV SCH (15:22)
[2024-11-24] MEDS: HYDROcodone/APAP 5-325MG 1 EACH TAB PO PRN (17:37)
--- NOTE | 2024-11-24 18:12 | CA ---
Transthoracic Echo Report Name: Ronak Carter Age: 64 Gender: M : 1960 Exam Date: 11/24/2024 11:59 Exam Location: [facility] Ht (in): 69 Wt (lb): 220 Ordering Physician: Di Francisco Attending/Referring Phys: [id number], Nolan [employer] Cult[employer]ator Rose Marie Singh RDCS Procedure CPT: Indications: afib rvr Cardiac Hx: pacemaker Technical Quality: Good Contrast 1: Total Dose (mL): Contrast 2: Total Dose (mL): MEASUREMENTS (Male / Female) Normal Values 2D ECHO LV Diastolic Diameter PLAX 4.5 cm 4.2 - 5.9 / 3.9 - 5.3 cm LV Systolic Diameter PLAX 2.7 cm IVS Diastolic Thickness 1.1 cm 0.6 - 1.0 / 0.6 - 0.9 cm LVPW Diastolic Thickness 0.9 cm 0.6 - 1.0 / 0.6 - 0.9 cm LV Relative Wall Thickness 0.4 RV Internal Dim ED PLAX 3.0 cm LA Systolic Diameter LX 3.2 cm 3.0 - 4.0 / 2.7 - 3.8 cm LV Diastolic Volume MOD 4C 136.6 cm??? LV Systolic Volume MOD 4C 55.7 cm??? LV Ejection Fraction MOD 4C 59.2 % LV Cardiac Index MOD 4C 4269.1 cm???/min???m??? LV Diastolic Length 4C 9.0 cm LV Systolic Length 4C 7.9 cm LV Diastolic Volume MOD 2C 126.7 cm??? LV Systolic Volume MOD 2C 52.6 cm??? LV Ejection Fraction MOD 2C 58.5 % LV Cardiac Index MOD 2C 3908.4 cm???/min???m??? LV Diastolic Length 2C 8.8 cm LV Systolic Length 2C 7.8 cm LA Volume 70.4 cm??? 18 - 58 / 22 - 52 cm??? LA Volume Index 31.5 cm???/m??? 16 - 28 cm???/m??? M-MODE Aortic Root Diameter MM 3.8 cm AV Cusp Separation MM 2.6 cm DOPPLER AV Peak Velocity 256.1 cm/s AV Peak Gradient 26.2 mmHg LVOT Peak Velocity 328.1 cm/s LVOT Peak Gradient 43.1 mmHg LVOT Velocity Time Integral 49.3 cm FINDINGS Left Ventricle Left ventricular ejection fraction is estimated at 60-65 %. Left ventricular cavity size normal. No obvious regional wall motion abnormalities. Right Ventricle Normal right ventricular size. Right ventricular systolic pressure within normal limits. Right Atrium Normal right atrial size. No right atrial thrombus or mass seen. Left Atrium Mildly increased left atrial volume. Mildly increased left atrial area. No left atrial thrombus or mass present. Mitral Valve Structurally normal mitral valve. No mitral stenosis, or prolapse.systolic anterior motion of the mitral valve chordae. Mild mitral regurgitation. Aortic Valve Trileaflet aortic valve. No aortic valve stenosis or regurgitation. LVOT obstruction with mean gradient of 17 mmHg Tricuspid Valve Structurally normal tricuspid valve. Mild tricuspid regurgitation. Pulmonic Valve Structurally normal pulmonic valve. No pulmonic regurgitation. Pericardium Trace pericardial effusion Aorta Mild aortic dilatation at the level of the sinuses of valsalva 38 mm CONCLUSIONS 1. Normal left ventricular size and systolic function with left ventricular outflow tract gradient of 17 mmHg 2. Mild mitral and tricuspid regurgitation Previewed by: Dr. Elise Jauregui MD (Electronically Signed) Final Date: 24 November 2024 18:11
[2024-11-24 19:45] LABS: Glucose,Whole Blood 114 mg/dL (70-110)
[2024-11-24] MEDS ORDERED: BUDESONIDE 0.5 MG/2 ML NEBU INHALATION SCH (20:00)
[2024-11-24] MEDS: metFORMIN 500 MG TAB PO SCH (20:19)
[2024-11-24] MEDS: ISOSORBIDE MONONITRATE ER 30 MG TAB.ER.24H PO SCH (20:19)
[2024-11-24] MEDS: METOPROLOL TARTRATE 50 MG TAB PO SCH (20:19)
[2024-11-24] MEDS: TAMSULOSIN 0.4 MG CAP.ER.24H PO SCH (20:19)
[2024-11-24] MEDS: GLIMEPIRIDE 4 MG TAB PO SCH (20:19)
[2024-11-24] MEDS: ACETAMINOPHEN TAB 325 MG TAB PO PRN (20:43)
--- NOTE | 2024-11-25 05:29 | P.HPIM ---
History of Present Illness H&P Date: 11/25/24 Chief Complaint: Chest pain 64-year-old male presenting to the emergency department with concerns with chest discomfort. Onset of symptoms was 3 AM. Patient does have history of similar symptoms previously associate with cardiac disease. Patient has known A-fib and does have associated palpitations. Patient feels a little bit short of breath. Patient feels lightheaded. Patient states his heart rate at home was 170. Patient did have cardiac ablation done just 10 days ago. -EKG: Atrial fibrillation #2 atrial tachycardia 124 bpm -Chest x-ray: Mild chronic elevation of the left hemidiaphragm with left basilar parenchymal scar or atelectasis. Mild patchy density right medial lung base could reflect developing atelectasis and/or infiltrate.. -Laboratory studies: WBC 12.4, hemoglobin 14.5, INR 1.2, potassium 4.3, BUN 29, creatinine 0.68. Troponin 0.125, 0.129. TSH 1.2 and free T4 normal at 1.15. -Home cardiac medications: Atorvastatin 80 mg daily, Plavix 75 mg daily, Farxiga 10 mg daily, Zetia 10 mg daily, Lasix 40 mg twice daily, Imdur 60 mg in the morning and 30 mg in the evening, lisinopril 40 mg daily, metoprolol tartrate 200 mg twice daily, Nitrostat as needed, Xarelto 20 mg daily. -11/14/2024: Pulmonary vein isolation, ablation for atrial fibrillation Review of Systems REVIEW OF SYSTEMS: CONSTITUTIONAL: No fever, no malaise, no fatigue. HEENT: No recent visual problems or hearing problems. Denied any sore throat. CARDIOVASCULAR: No chest pain, orthopnea, PND, no palpitations, no syncope. PULMONARY: No shortness of breath, no cough, no hemoptysis. GASTROINTESTINAL: No diarrhea, no nausea, no vomiting, no abdominal pain. NEUROLOGICAL: No headaches, no weakness, no numbness. HEMATOLOGICAL: Denies any bleeding or petechiae. GENITOURINARY: Denies any burning micturition, frequency, or urgency. MUSCULOSKELETAL/RHEUMATOLOGICAL: Denies any joint pain, swelling, or any muscle pain. ENDOCRINE: Denies any polyuria or polydipsia. The rest of the 14-point review of systems is negative. Past Medical History Past Medical History: Atrial Fibrillation, COPD, CVA/TIA, Diabetes Mellitus, Osteoarthritis (OA), Pneumonia, Prostate Disorder, Sleep Apnea/CPAP/BIPAP Additional Past Medical History / Comment(s): SEE DR DURAN H&P MILD CVA , WEAKNESS LT LEG AND ARM and when tired lt foot drag at times. "SPOT ON LIVER, BEING WATCHED" HX KIDNEY STONE, USEs O2 AT 2L History of Any Multi-Drug Resistant Organisms: None Reported Past Surgical History: Heart Catheterization, Heart Catheterization With Stent, Hernia Repair, Orthopedic Surgery, Pacemaker Additional Past Surgical History / Comment(s): 08/29/13 Cath with 50-60% stenosis L cx treated medically, possible PTCA about 10 yrs ago per pt old medical records. EXC Bilateral Feet BUNIONS. ORIF Right Wrist Surgery - TOOK BONE FROM RT HIP. PTCA W/ STENT X2 IN 12/2015. cryo ablation 05/04/2018 for afib, bronchoscopy umbilical and inguianal hernia Past Anesthesia/Blood Transfusion Reactions: No Reported Reaction Date of Last Stent Placement:: 01/03/16 Type of Cardiac Device: Permanent Pacemaker Device Placement Date:: 07-30-17 Past Psychological History: Anxiety Additional Psychological History / Comment(s): . Smoking Status: Current every day smoker Past Alcohol Use History: None Reported Additional Past Alcohol Use History / Comment(s): He started smoking in 1980 down to 04/30 -12PPD Past Drug Use History: None Reported - Past Family History Mother Family Medical History: Cancer, Diabetes Mellitus Additional Family Medical History / Comment(s): Mother is alive and 78 yrs old. She has NIDDM and had breast cancer. Brother(s) Family Medical History: Renal Disease Sister(s) Family Medical History: AFIB Daughter(s) Family Medical History: Cancer Additional Family Medical History / Comment(s): SKIN CANCER Son(s) Family Medical History: No Reported History Medications and Allergies Home Medications Medication Instructions Recorded Confirmed Type Nitroglycerin Sl Tabs [Nitrostat] 0.4 mg SUBLINGUAL Q5M PRN 08/28/13 11/24/24 History Montelukast [Singulair] 10 mg PO DAILY 05/16/15 11/24/24 History Albuterol Inhaler [Ventolin Hfa 2 puff INHALATION RT-Q4H PRN 04/29/16 11/24/24 History Inhaler] Tamsulosin [Flomax] 0.4 mg PO BID 04/29/16 11/24/24 History Clopidogrel [Plavix] 75 mg PO DAILY 07/30/17 11/24/24 History Isosorbide Mononitrate ER [Imdur] 30 mg PO HS 07/30/17 11/24/24 History Budesonide 0.5 mg INHALATION RT-BID 06/27/24 11/24/24 History Dapagliflozin Propanediol [Farxiga] 10 mg PO DAILY 06/27/24 11/24/24 History Ezetimibe [Zetia] 10 mg PO DAILY 06/27/24 11/24/24 History Furosemide [Lasix] 40 mg PO BID 06/27/24 11/24/24 History ALPRAZolam [Xanax] 0.25 mg PO DAILY PRN 08/29/24 11/24/24 History Cholecalciferol [Vitamin D3 (25 25 mcg PO DAILY 08/29/24 11/24/24 History Mcg = 1000 Iu)] Fluticasone/Umeclidin/Vilanter 1 puff INHALATION RT-DAILY 08/29/24 11/24/24 History [Trelegy Ellipta 200-62.5-25] Glimepiride [Amaryl] 4 mg PO BID 08/29/24 11/24/24 History Glucosam/Joaquín-Msm1/C/[place]/Bosw 1 tab PO DAILY 08/29/24 11/24/24 History [Glucosamine-Chondroitin Tablet] HYDROcodone/APAP 5-325MG [[place] 1 tab PO Q6HR PRN 08/29/24 11/24/24 History 5-325] Isosorbide Mononitrate ER [Imdur] 60 mg PO DAILY 08/29/24 11/24/24 History L.acidoph,Paracasei, B.lactis 1 cap PO DAILY 08/29/24 11/24/24 History [Probiotic] Metoprolol Tartrate [Lopressor] 200 mg PO BID 08/29/24 11/24/24 History Rivaroxaban [Xarelto] 20 mg PO DAILY 08/29/24 11/24/24 History Zinc Gluconate [Zinc] 50 mg PO DAILY 08/29/24 11/24/24 History metFORMIN HCL 1,000 mg PO BID 08/29/24 11/24/24 History lisinopriL [Zestril] 40 mg PO DAILY 11/10/24 11/24/24 History Atorvastatin [Lipitor] 80 mg PO DAILY 11/24/24 11/24/24 History Ipratropium-Albuterol Nebulize 3 ml INHALATION RT-Q6H 11/24/24 11/24/24 History [Duoneb 0.5 mg-3 mg/3 ml Soln] Multivitamins, Thera [Multivitamin 1 tab PO DAILY 11/24/24 11/24/24 History (formulary)] Omeprazole Magnesium [PriLOSEC OTC] 20 mg PO DAILY 11/24/24 11/24/24 History Allergies Allergy/AdvReac Type Severity Reaction Status Date / Time codeine Allergy Unknown Verified 11/24/24 11:32 Physical Exam Vitals: Vital Signs Temp Pulse Pulse Resp BP BP Pulse Ox 11/25/24 03:15 98.3 F 78 20 109/74 91 L 11/24/24 23:30 98.2 F 68 20 108/70 95 11/24/24 19:55 98.8 F 108 H 20 123/78 94 L 11/24/24 17:05 98.6 F 110 H 18 120/73 92 L 11/24/24 16:55 98.6 F 72 18 120/73 92 L 11/24/24 16:39 98 F 108 H 18 127/89 93 L 11/24/24 15:26 98.5 F 113 H 18 115/90 93 L 11/24/24 15:01 112 H 11/24/24 14:47 106 H 11/24/24 12:01 123 H 20 98/68 94 L 11/24/24 11:11 109 H 20 82/59 94 L 11/24/24 11:02 71/47 11/24/24 10:43 117 H 20 104/68 95 11/24/24 10:34 144 H 11/24/24 10:21 112 H 18 74/50 95 11/24/24 09:41 123 H 18 93/69 96 11/24/24 09:33 137 H 114/75 11/24/24 09:29 133 H 92/77 11/24/24 09:09 123 H 83/67 11/24/24 08:52 163 H 11/24/24 08:33 97.7 F 168 H 22 95/65 96 Intake and Output 11/24/24 11/24/24 11/25/24 14:59 22:59 06:59 Other: # Voids 1 # Bowel Movements 1 Weight 99.79 kg 99.79 kg General appearance: alert Head exam: Present: normocephalic Eye exam: Present: normal appearance Neck exam: Present: normal inspection Respiratory exam: Present: normal lung sounds bilaterally Cardiovascular Exam: Present: tachycardia, irregular rhythm GI/Abdominal exam: Present: soft. Absent: tenderness Extremities exam: Present: normal inspection. Absent: pedal edema, calf tenderness Neurological exam: Present: alert Psychiatric exam: Present: normal affect, normal mood Skin exam: Present: normal color Results CBC & Chem 7: 11/24/24 08:52 11/24/24 08:52 Labs: Abnormal Lab Results - Last 24 Hours (Table) 11/24/24 11/24/24 11/24/24 Range/Units 08:52 08:52 08:52 WBC 12.44 H (4.50-10.00) 10*3/uL Immature Gran # 0.05 H (0.00-0.04) 10*3/uL Neutrophils # 9.29 H (1.80-7.70) 10*3/uL Monocytes # 1.14 H (0.20-1.00) 10*3/uL PT 12.6 H (10.0-12.5) sec INR 1.2 H (<1.2) BUN 29 H (9-20) mg/dL Glucose 142 H (74-99) mg/dL POC Glucose (mg/dL) (70-110) mg/dL Troponin I (0.000-0.034) ng/mL Total Protein 6.2 L (6.3-8.2) g/dL 11/24/24 11/24/24 11/24/24 Range/Units 08:52 11:22 14:46 WBC (4.50-10.00) 10*3/uL Immature Gran # (0.00-0.04) 10*3/uL Neutrophils # (1.80-7.70) 10*3/uL Monocytes # (0.20-1.00) 10*3/uL PT (10.0-12.5) sec INR (<1.2) BUN (9-20) mg/dL Glucose (74-99) mg/dL POC Glucose (mg/dL) (70-110) mg/dL Troponin I 0.125 H* 0.129 H* 0.107 H* (0.000-0.034) ng/mL Total Protein (6.3-8.2) g/dL 11/24/24 Range/Units 19:44 WBC (4.50-10.00) 10*3/uL Immature Gran # (0.00-0.04) 10*3/uL Neutrophils # (1.80-7.70) 10*3/uL Monocytes # (0.20-1.00) 10*3/uL PT (10.0-12.5) sec INR (<1.2) BUN (9-20) mg/dL Glucose (74-99) mg/dL POC Glucose (mg/dL) 114 H (70-110) mg/dL Troponin I (0.000-0.034) ng/mL Total Protein (6.3-8.2) g/dL Thrombosis Risk Factor Assmnt - Choose All That Apply Each Factor Represents 1 point: Obesity (BMI >25) Each Risk Factor Represents 3 Points: Age 75 years or older Thrombosis Risk Factor Assessment Total Risk Factor Score: 4 Thrombosis Risk Factor Assessment Level: Moderate Risk Assessment and Plan Assessment: Paroxysmal atrial fibrillation with RVR - Patient had recent ablation done on 11/14/2024 - Cardiology on board and recommending to continue with amiodarone drip per protocol-continue home dose of Xarelt-further recommendations pending clinical course Elevated troponin; troponin is trended and remains flat with initial troponin of 0.125, second troponin of 0.129 and latest is 0.107 -History of CAD with PCI of LAD and circumflex -Echocardiogram reveals LVEF of 60 to 65% with no obvious regional wall motion abnormality Sick sinus syndrome; status post dual pacemaker placement Hypertension; metoprolol 200 mg twice daily; Imdur 60 mg daily and 30 mg nightly Hyperlipidemia; continue home dose of Zetia and Lipitor Diabetes mellitus type 2; Amaryl 4 mg twice daily; Farxiga 10 mg daily; Omid 1000 mg twice daily - Monitor Accu-Cheks q. ACH S with insulin sliding scale History of CVA; patient remains on Zetia, Lipitor and Plavix COPD/asthma; not in exacerbation; Symbicort twice daily DVT prophylaxis; SCDs/Xarelto CODE STATUS; full code
[2024-11-25] MEDS: ALBUTEROL NEBULIZED 2.5 MG/3 ML INHALATION PRN (05:37)
[2024-11-25 06:11] LABS: Glucose,Whole Blood 92 mg/dL (70-110)
[2024-11-25 07:13] LABS: Basophils # (A) 0.06 10*3/uL (0.00-0.10); Basophils % (A) 0.7 %; Eosinophils # (A) 0.17 10*3/uL (0.04-0.35); Eosinophils % (A) 1.9 %; HCT 39.4 % (39.6-50.0); HGB 12.4 g/dL (13.0-17.0); Lymphocytes # (A) 1.96 10*3/uL (0.90-5.00); Lymphocytes % (A) 21.8 %; MCH 29.0 pg (27.0-32.0); MCHC 31.5 g/dL (32.0-37.0); MCV 92.3 fL (80.0-97.0); Monocytes # (A) 0.80 10*3/uL (0.20-1.00); Monocytes % (A) 8.9 %; Neutrophils # (A) 5.98 10*3/uL (1.80-7.70); Neutrophils % (A) 66.3 %; Platelet Count 265 10*3/uL (140-440); RBC 4.27 10*6/uL (4.40-5.60); RDW 13.4 % (11.5-14.5); WBC 9.01 10*3/uL (4.50-10.00)
[2024-11-25 07:31] LABS: African American GFR (CKD) >90 (>60 ml/min/1.73 sqM); Anion Gap 7 mmol/L; Blood Urea Nitrogen 43 mg/dL (9-20); Calcium 9.2 mg/dL (8.4-10.2); Carbon Dioxide 31 mmol/L (22-30); Chloride 100 mmol/L (98-107); Glucose 66 mg/dL (74-99); Non-African American GFR(CKD) >90 (>60 ml/min/1.73 sqM); Potassium 4.2 mmol/L (3.5-5.1); Sodium 138 mmol/L (137-145)
[2024-11-25 08:28] VITALS: BP 114/73; RESP 18; TEMP 98
[2024-11-25] MEDS: LACTOBACILLUS ACIDOPHILUS/PECT 1 EACH CAPSULE PO SCH (08:29)
[2024-11-25] MEDS: CLOPIDOGREL 75 MG TAB PO SCH (08:29)
[2024-11-25] MEDS: ATORVASTATIN 80 MG TAB PO SCH (08:29)
[2024-11-25] MEDS: AMIODARONE 200 MG TAB PO SCH (08:29)
[2024-11-25] MEDS: EZETIMIBE 10 MG TAB PO SCH (08:29)
[2024-11-25] MEDS: DAPAGLIFLOZIN PROPANEDIOL 10 MG TABLET PO SCH (08:29)
[2024-11-25] MEDS: CHOLECALCIFEROL 25 MCG (1000 IU) TABLET PO SCH (08:29)
[2024-11-25] MEDS: ISOSORBIDE MONONITRATE ER 60 MG TAB.ER.24H PO SCH (08:30)
[2024-11-25] MEDS: MULTIVITAMINS, THERA 1 EACH TAB PO SCH (08:30)
[2024-11-25] MEDS: RIVAROXABAN 20 MG TAB PO SCH (08:30)
[2024-11-25] MEDS: MONTELUKAST 10 MG TAB PO SCH (08:30)
[2024-11-25] MEDS: NON FORMULARY DRUG (Glucosam/Chon-Msm1/C/Mang/Bosw [Glucosamine-Chondroitin Tablet] 1 EACH PO SCH (08:30)
[2024-11-25] MEDS: PANTOPRAZOLE 40 MG TABLET PO SCH (08:31)
[2024-11-25] MEDS: ZINC SULFATE 220 MG CAP PO SCH (08:36)
[2024-11-25] MEDS: SYMBICORT 160-4.5 MCG INHALER INHALATION SCH (09:05)
--- NOTE | 2024-11-25 09:09 | P.PN ---
Subjective Progress Note Date: 11/25/24 This is a 64-year-old male patient of Dr. Hernandez with past medical history of coronary artery disease status post PCI of the LAD and circumflex in 2013, paroxysmal atrial fibrillation status post ablation in 2019, sick sinus syndrome status post dual-chamber permanent pacemaker, hypertension, hyperlipidemia, CVA, diabetes, asthma, remote history of tobacco use, mild ascending aortic aneurysm measuring 4.3 to 4.4 cm, LVH, known PVC burden 14%. We have been asked to evaluate the patient for atrial fibrillation with RVR. For 2 days patient has not been feeling well and family member states that his blood pressure has been labile but mostly on the lower side. He also has had episodes where his heart will jump up and be fast. He also developed some chest pain across his chest. At home his blood pressure was 180 systolic. At 3 AM this morning, he had sudden onset of chest discomfort. His heart rate at home was 170. He recently underwent atrial fibrillation ablation on 11/14/[address] Tan. Initially, patient was found to be in atrial fibrillation and was hypotensive and subsequently underwent electrocardioversion times 4. Patient then went into atrial tachycardia. Blood pressures are gradually improving. He has also been started on amiodarone drip. -EKG: Atrial fibrillation with RVR #2 atrial tachycardia 124 bpm -Chest x-ray: Mild chronic elevation of the left hemidiaphragm with left basilar parenchymal scar or atelectasis. Mild patchy density right medial lung base could reflect developing atelectasis and/or infiltrate.. -Laboratory studies: WBC 12.4, hemoglobin 14.5, INR 1.2, potassium 4.3, BUN 29, creatinine 0.68. Troponin 0.125, 0.129. TSH 1.2 and free T4 normal at 1.15. -Home cardiac medications: Atorvastatin 80 mg daily, Plavix 75 mg daily, Farxiga 10 mg daily, Zetia 10 mg daily, Lasix 40 mg twice daily, Imdur 60 mg in the morning and 30 mg in the evening, lisinopril 40 mg daily, metoprolol tartrate 200 mg twice daily, Nitrostat as needed, Xarelto 20 mg daily. -11/14/2024: Pulmonary vein isolation, ablation for atrial fibrillation - Echocardiogram performed in the office on 04/04/2024 revealed EF of 45 to 50%, moderate left ventricular hypertrophy, aortic valve is calcified with mild aortic regurgitation, mild mitral regurgitation, mild to moderate tricuspid regurgitation. Normal PASP. Mild pulmonic regurgitation. -Lexiscan Cardiolite stress test performed in the office on 03/23/2023 revealed nonspecific stress EKG portion secondary to baseline EKG abnormalities. Fixed inferior perfusion defects most consistent with diaphragmatic attenuation artifact. Normal left ventricular EF 60%. -Most recent left heart catheterization performed 06/29/2024 revealed CAD including 20 to 30% LAD, 50% diagonal 2, 40% circumflex, 30 to 40% PLV stenosis, LVEDP 16. 11/25/2024 Patient seen and examined on the cardiac stepdown unit. Patient states that he is feeling much better. Patient is currently in a sinus rhythm. Blood pressure is much improved. Blood pressure 114/73, heart rate 78-90, pulse ox 92% on room air. Echocardiogram reveals EF of 60 to 65%, mild mitral and tricuspid regurgitation. Physical examination: Gen: This is 64-year-old male in no acute distress VS: reviewed HEENT: Head is atraumatic, normocephalic. Pupils equal, round. Sclerae is anicteric. NECK: Supple. No JVD. LUNGS: Bilateral wheezing. No intercostal retractions. HEART: Regular rate and rhythm. Tachycardic ABDOMEN: Soft No tenderness. EXTREMITIES: Bruising noted to the bilateral thighs medially. No hematoma. No pedal edema. No calf tenderness. NEUROLOGICAL: Patient is awake, alert and oriented x3. Assessment: Paroxysmal atrial fibrillation with RVR Sinus tachycardia History of coronary artery disease with PCI of the LAD and circumflex History of atrial fibrillation ablation in 2019 and 11/14/2024 Sick sinus syndrome status post dual-chamber permanent pacemaker 2018 [employer] device Hypertension Hyperlipidemia History of CVA Diabetes Mild ascending aortic aneurysm Plan: Continue patient's cardiac medications Discontinue amiodarone drip and start patient on amiodarone 400 mg twice daily for 3 days followed by 200 mg twice daily for 4 weeks and then stop--a prescription has been sent to his pharmacy. Patient is cleared for discharge from cardiology perspective. Patient will follow-up in the office with Dr. Hernandez in 1 week. Nurse practitioner note has been reviewed, I agree with documented findings and plan of care. Patient was seen and examined. Objective - Vital Signs Vital signs: Vital Signs Temp 98.3 F 11/25/24 03:15 Pulse 80 11/25/24 05:48 Resp 20 11/25/24 03:15 BP 109/74 11/25/24 03:15 Pulse Ox 91 L 11/25/24 03:15 FiO2 Intake & Output 11/24/24 11/25/24 11/25/24 18:59 06:59 18:59 Intake Total 250 Balance 250 Weight 99.79 kg 90 kg Intake: Intake, IV Titration 250 Amount Amiodarone 450 mg In 250 Dextrose 5% in Water 250 ml @ 0.5 MG/MIN 16.667 mls/hr IV .Q15H [facility] Rx#: [id number] Other: # Voids 1 1 # Bowel Movements 1 - Labs CBC & Chem 7: 11/25/24 06:19 11/25/24 06:19 Labs: Abnormal Lab Results - Last 24 Hours (Table) 11/24/24 11/24/24 11/24/24 Range/Units 08:52 08:52 08:52 WBC 12.44 H (4.50-10.00) 10*3/uL RBC (4.40-5.60) 10*6/uL Hgb (13.0-17.0) g/dL Hct (39.6-50.0) % MCHC (32.0-37.0) g/dL Immature Gran # 0.05 H (0.00-0.04) 10*3/uL Neutrophils # 9.29 H (1.80-7.70) 10*3/uL Monocytes # 1.14 H (0.20-1.00) 10*3/uL PT 12.6 H (10.0-12.5) sec INR 1.2 H (<1.2) Carbon Dioxide (22-30) mmol/L BUN 29 H (9-20) mg/dL Glucose 142 H (74-99) mg/dL POC Glucose (mg/dL) (70-110) mg/dL Troponin I (0.000-0.034) ng/mL Total Protein 6.2 L (6.3-8.2) g/dL 11/24/24 11/24/24 11/24/24 Range/Units 08:52 11:22 14:46 WBC (4.50-10.00) 10*3/uL RBC (4.40-5.60) 10*6/uL Hgb (13.0-17.0) g/dL Hct (39.6-50.0) % MCHC (32.0-37.0) g/dL Immature Gran # (0.00-0.04) 10*3/uL Neutrophils # (1.80-7.70) 10*3/uL Monocytes # (0.20-1.00) 10*3/uL PT (10.0-12.5) sec INR (<1.2) Carbon Dioxide (22-30) mmol/L BUN (9-20) mg/dL Glucose (74-99) mg/dL POC Glucose (mg/dL) (70-110) mg/dL Troponin I 0.125 H* 0.129 H* 0.107 H* (0.000-0.034) ng/mL Total Protein (6.3-8.2) g/dL 11/24/24 11/25/24 11/25/24 Range/Units 19:44 06:19 06:19 WBC (4.50-10.00) 10*3/uL RBC 4.27 L (4.40-5.60) 10*6/uL Hgb 12.4 L (13.0-17.0) g/dL Hct 39.4 L (39.6-50.0) % MCHC 31.5 L (32.0-37.0) g/dL Immature Gran # (0.00-0.04) 10*3/uL Neutrophils # (1.80-7.70) 10*3/uL Monocytes # (0.20-1.00) 10*3/uL PT (10.0-12.5) sec INR (<1.2) Carbon Dioxide 31 H (22-30) mmol/L BUN 43 H (9-20) mg/dL Glucose 66 L (74-99) mg/dL POC Glucose (mg/dL) 114 H (70-110) mg/dL Troponin I (0.000-0.034) ng/mL Total Protein (6.3-8.2) g/dL
[2024-11-25 09:22] VITALS: PULSE 91
--- NOTE | 2024-11-25 09:50 | P.DS ---
Providers Date of admission: 11/24/24 10:02 Attending physician: Jessie Johnson Consults: 11/24/24 10:01 Consult Physician Urgent Consulting Provider: Hilton Wright Consult Reason/Comments: A-fib with RVR Do you want consulting provider notified?: Yes Primary care physician: Barb Oliver [facility] Course: 64-year-old male patient of Dr. Hernandez with past medical history of coronary artery disease status post PCI of the LAD and circumflex in 2013, paroxysmal atrial fibrillation status post ablation in 2019, sick sinus syndrome status post dual-chamber permanent pacemaker, hypertension, hyperlipidemia, CVA, diabetes, asthma, remote history of tobacco use, mild ascending aortic aneurysm measuring 4.3 to 4.4 cm, LVH, known PVC burden 14%. We have been asked to evaluate the patient for atrial fibrillation with RVR. For 2 days patient has not been feeling well and family member states that his blood pressure has been labile but mostly on the lower side. He also has had episodes where his heart will jump up and be fast. He also developed some chest pain across his chest. At home his blood pressure was 180 systolic. At 3 AM this morning, he had sudden onset of chest discomfort. His heart rate at home was 170. He recently underwent atrial fibrillation ablation on 11/14/[address] Tan. Initially, patient was found to be in atrial fibrillation and was hypotensive and subsequently underwent electrocardioversion times 4. Patient then went into atrial tachycardia. Blood pressures are gradually improving. He has also been started on amiodarone drip. -EKG: Atrial fibrillation with RVR #2 atrial tachycardia 124 bpm -Chest x-ray: Mild chronic elevation of the left hemidiaphragm with left basilar parenchymal scar or atelectasis. Mild patchy density right medial lung base could reflect developing atelectasis and/or infiltrate.. -Laboratory studies: WBC 12.4, hemoglobin 14.5, INR 1.2, potassium 4.3, BUN 29, creatinine 0.68. Troponin 0.125, 0.129. TSH 1.2 and free T4 normal at 1.15. -Home cardiac medications: Atorvastatin 80 mg daily, Plavix 75 mg daily, Farxiga 10 mg daily, Zetia 10 mg daily, Lasix 40 mg twice daily, Imdur 60 mg in the morning and 30 mg in the evening, lisinopril 40 mg daily, metoprolol tartrate 200 mg twice daily, Nitrostat as needed, Xarelto 20 mg daily. -11/14/2024: Pulmonary vein isolation, ablation for atrial fibrillation - Echocardiogram performed in the office on 04/04/2024 revealed EF of 45 to 50%, moderate left ventricular hypertrophy, aortic valve is calcified with mild aortic regurgitation, mild mitral regurgitation, mild to moderate tricuspid regurgitation. Normal PASP. Mild pulmonic regurgitation. -Lexiscan Cardiolite stress test performed in the office on 03/23/2023 revealed nonspecific stress EKG portion secondary to baseline EKG abnormalities. Fixed inferior perfusion defects most consistent with diaphragmatic attenuation artifact. Normal left ventricular EF 60%. -Most recent left heart catheterization performed 06/29/2024 revealed CAD including 20 to 30% LAD, 50% diagonal 2, 40% circumflex, 30 to 40% PLV stenosis, LVEDP 16. 11/25/2024 Patient seen and examined on the cardiac stepdown unit. Patient states that he is feeling much better. Patient is currently in a sinus rhythm. Blood pressure is much improved. Blood pressure 114/73, heart rate 78-90, pulse ox 92% on room air. Echocardiogram reveals EF of 60 to 65%, mild mitral and tricuspid regurgitation. Assessment: Paroxysmal atrial fibrillation with RVR Sinus tachycardia History of coronary artery disease with PCI of the LAD and circumflex History of atrial fibrillation ablation in 2019 and 11/14/2024 Sick sinus syndrome status post dual-chamber permanent pacemaker 2018 [employer] device Hypertension Hyperlipidemia History of CVA Diabetes Mild ascending aortic aneurysm Plan: Continue patient's cardiac medications Discontinue amiodarone drip and start patient on amiodarone 400 mg twice daily for 3 days followed by 200 mg twice daily for 4 weeks and then stop--a prescription has been sent to his pharmacy. Patient is cleared for discharge from cardiology perspective. Patient will follow-up in the office with Dr. Hernandez in 1 week. Patient Condition at Discharge: Serious Plan - Discharge Summary Discharge Rx Participant: Yes New Discharge Prescriptions: New Amiodarone HCl [Pacerone] 400 mg PO BID #72 tablet No Action Nitroglycerin Sl Tabs [Nitrostat] 0.4 mg SUBLINGUAL Q5M PRN PRN Reason: Chest Pain Montelukast [Singulair] 10 mg PO DAILY Tamsulosin [Flomax] 0.4 mg PO BID Albuterol Inhaler [Ventolin Hfa Inhaler] 2 puff INHALATION RT-Q4H PRN PRN Reason: Shortness Of Breath Clopidogrel [Plavix] 75 mg PO DAILY Isosorbide Mononitrate ER [Imdur] 30 mg PO HS Ezetimibe [Zetia] 10 mg PO DAILY Furosemide [Lasix] 40 mg PO BID Rivaroxaban [Xarelto] 20 mg PO DAILY Fluticasone/Umeclidin/Vilanter [Trelegy Ellipta 200-62.5-25] 1 puff INHALATION RT-DAILY Isosorbide Mononitrate ER [Imdur] 60 mg PO DAILY Glimepiride [Amaryl] 4 mg PO BID metFORMIN HCL 1,000 mg PO BID HYDROcodone/APAP 5-325MG [[place] 5-325] 1 tab PO Q6HR PRN PRN Reason: Pain Glucosam/[place]oaquín-Msm1/C/Saturn[place]/Bosw [Glucosamine-Chondroitin Tablet] 1 tab PO DAILY Cholecalciferol [Vitamin D3 (25 Mcg = 1000 Iu)] 25 mcg PO DAILY lisinopriL [Zestril] 40 mg PO DAILY Atorvastatin [Lipitor] 80 mg PO DAILY Omeprazole Magnesium [PriLOSEC OTC] 20 mg PO DAILY Budesonide 0.5 mg INHALATION RT-BID Dapagliflozin Propanediol [Farxiga] 10 mg PO DAILY Metoprolol Tartrate [Lopressor] 200 mg PO BID ALPRAZolam [Xanax] 0.25 mg PO DAILY PRN PRN Reason: Anxiety Zinc Gluconate [Zinc] 50 mg PO DAILY L.acidoph,Paracasei, B.lactis [Probiotic] 1 cap PO DAILY Ipratropium-Albuterol Nebulize [Duoneb 0.5 mg-3 mg/3 ml Soln] 3 ml INHALATION RT-Q6H Multivitamins, Thera [Multivitamin (formulary)] 1 tab PO DAILY Discharge Medication List Nitroglycerin Sl Tabs [Nitrostat] 0.4 mg SUBLINGUAL Q5M PRN 08/28/13 [History] Montelukast [Singulair] 10 mg PO DAILY 05/16/15 [History] Albuterol Inhaler [Ventolin Hfa Inhaler] 2 puff INHALATION RT-Q4H PRN 04/29/16 [History] Tamsulosin [Flomax] 0.4 mg PO BID 04/29/16 [History] Clopidogrel [Plavix] 75 mg PO DAILY 07/30/17 [History] Isosorbide Mononitrate ER [Imdur] 30 mg PO HS 07/30/17 [History] Budesonide 0.5 mg INHALATION RT-BID 06/27/24 [History] Dapagliflozin Propanediol [Farxiga] 10 mg PO DAILY 06/27/24 [History] Ezetimibe [Zetia] 10 mg PO DAILY 06/27/24 [History] Furosemide [Lasix] 40 mg PO BID 06/27/24 [History] ALPRAZolam [Xanax] 0.25 mg PO DAILY PRN 08/29/24 [History] Cholecalciferol [Vitamin D3 (25 Mcg = 1000 Iu)] 25 mcg PO DAILY 08/29/24 [History] Fluticasone/Umeclidin/Vilanter [Trelegy Ellipta 200-62.5-25] 1 puff INHALATION RT-DAILY 08/29/24 [History] Glimepiride [Amaryl] 4 mg PO BID 08/29/24 [History] Glucosam/[place]oaquín-Msm1/C/[place]/Bosw [Glucosamine-Chondroitin Tablet] 1 tab PO DAILY 08/29/24 [History] HYDROcodone/APAP 5-325MG [[place] 5-325] 1 tab PO Q6HR PRN 08/29/24 [History] Isosorbide Mononitrate ER [Imdur] 60 mg PO DAILY 08/29/24 [History] L.acidoph,Paracasei, B.lactis [Probiotic] 1 cap PO DAILY 08/29/24 [History] Metoprolol Tartrate [Lopressor] 200 mg PO BID 08/29/24 [History] Rivaroxaban [Xarelto] 20 mg PO DAILY 08/29/24 [History] Zinc Gluconate [Zinc] 50 mg PO DAILY 08/29/24 [History] metFORMIN HCL 1,000 mg PO BID 08/29/24 [History] lisinopriL [Zestril] 40 mg PO DAILY 11/10/24 [History] Atorvastatin [Lipitor] 80 mg PO DAILY 11/24/24 [History] Ipratropium-Albuterol Nebulize [Duoneb 0.5 mg-3 mg/3 ml Soln] 3 ml INHALATION RT-Q6H 11/24/24 [History] Multivitamins, Thera [Multivitamin (formulary)] 1 tab PO DAILY 11/24/24 [History] Omeprazole Magnesium [PriLOSEC OTC] 20 mg PO DAILY 11/24/24 [History] Amiodarone HCl [Pacerone] 400 mg PO BID #72 tablet 11/25/24 [Rx] Follow up Appointment(s)/Referral(s): Montrell Tan MD [STAFF PHYSICIAN] - 1 Week Barb Oliver MD [Primary Care Provider] - 1-2 days
[2024-11-25 18:23] LABS: Cholesterol 84.00 mg/dL (0.00-200.00); HDL Cholesterol 27.10 mg/dL (40.00-60.00); LDL Cholesterol,Calculated 25.1 mg/dL (0.0-131.0); Triglycerides 159.00 mg/dL (0.00-149.00); VLDL Calculation 31.80 mg/dL (5.00-40.00)
== END 2024-11-25 10:16 | disposition home or self-care (01) | DRG 310 ==
LOC: EC 08:31 → 3SCARD 10:02
PROVIDERS: ADMIT Hospitalist; ATTEND Hospitalist
DX: I48.0 Paroxysmal atrial fibrillation (principal); I49.5 Sick sinus syndrome; J44.89 Other specified chronic obstructive pulmonary disease; E11.9 Type 2 diabetes mellitus without complications; I71.21 Aneurysm of the ascending aorta, without rupture; I25.10 Atherosclerotic heart disease of native coronary artery without angina pectoris; I47.19 Other supraventricular tachycardia; Z79.01 Long term (current) use of anticoagulants; Z79.02 Long term (current) use of antithrombotics/antiplatelets; Z79.84 Long term (current) use of oral hypoglycemic drugs; Z79.899 Other long term (current) drug therapy; Z86.73 Personal history of transient ischemic attack (TIA), and cerebral infarction without residual deficits; Z87.01 Personal history of pneumonia (recurrent); Z87.442 Personal history of urinary calculi; Z95.0 Presence of cardiac pacemaker; Z95.5 Presence of coronary angioplasty implant and graft; E78.5 Hyperlipidemia, unspecified; F41.9 Anxiety disorder, unspecified; G47.30 Sleep apnea, unspecified
CPT/HCPCS: 36415; 71045; 80048; 80053; 80061; 83735; 84439; 84443; 84481; 84484; 85025; 85610; 85730; 93005; 93306; 94640; 94760; 96365; 96366; 96375; 99291